=== PATIENT | female | born 1965 | race Caucasian/White ===

== ENCOUNTER 2021-03-29 18:19 | Emergency (ER) | payer MEDICAID, SELFPAY ==
--- NOTE | ~2021-03-29 | XR_ITS ---
EXAMINATION: XR foot RT 2V DATE: 03/29/2021 18:39 INDICATION: Generalized right foot pain and edema TECHNIQUE: Dorsoplantar and lateral views of the right foot were obtained. COMPARISON: None. FINDINGS: : Alignment is normal. No acute fracture. Suggestion of possible old healed fractures of the fourth a nd fifth proximal phalanges. 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 No cortical erosions. Nonspecific prominent soft tissue swelling about the ankle particularly laterally and over the dorsum of the foot. No soft tissue gas or radiopaque foreign bodies. IMPRESSION: 1. No acute osseous abnormality. Reviewed, dictated and finalized at location A.
[2021-03-29 18:29] VITALS: BP 153/87; PULSE 66; RESP 18; TEMP 36.7; O2SAT 96
--- NOTE | 2021-03-29 19:27 | ED.EXTPRO ---
HPI - Extremity Problem General Chief complaint: Extremity Problem,Nontraumatic Stated complaint: R Foot pain Time Seen by Provider: 03/29/21 19:27 History of Present Illness HPI Narrative: 55 yo female w/ no known past medical history presents to the ED for foot pain. She reports that she had pain and swelling in her right foot that she first noted when she awoke yesterday morning. The pain is greatest at the base of the fifth toe. The swelling radiates throughout the foot and ankle. She reports that she has had this once before, but she does not know what caused it then either. She also has a diffuse rash, which she thinks is due to bed bugs. No trauma, fever, h/o gout, DM. She has not tried anything for her symptoms. She is a poor historian. Related Data Allergies Allergy/AdvReac Type Severity Reaction Status Date / Time Penicillins Allergy Swelling Verified 03/29/21 19:21 Review of Systems Review of Systems: All systems reviewed & are unremarkable except as noted in HPI and below Constitutional: Constitutional: Denies chills, Denies fever(s) and Denies weakness Cardiovascular: Cardiovascular: Denies chest pain Respiratory: Respiratory: Denies dyspnea Gastrointestinal: Gastrointestinal: Denies nausea Genitourinary: Genitourinary: Reports no additional female genitourinary complaints Integumentary/Breasts: Skin/Breast: Reports rash Neurologic: Denies numbness and Denies weakness [facility] Social History Social History (Updated 03/29/21 @ 20:12 by Neptali Bailey MD) Substance use: never Gender identity (if verbalized by the patient): Female Comments history not known Exam Const: General: no acute distress and alert Nutritional Appearance: obese morbidly obese Orientation/consciousness: patient oriented x3 HENMT: Head: normal to inspection Neck: Neck: normal visual inspection Resp: Effort & Inspection: normal respiratory effort Auscultation: clear to auscultation bilaterally Cardio: Rate: regular rate Rhythm: regular rhythm Skin: Other: Diffuse papular rash w/ excoriations covering all exposed surfaces Neuro: General: patient oriented x3 and moves all extremities Speech: normal speech Extrem: Other: 2+ edema of right foot especially prominent on the lateral side. Tenderness most severe at right MTP. Course Vital Signs Vital signs: Vital Signs Temperature 36.7 C 03/29/21 18:29 Pulse Rate 66 03/29/21 18:29 Respiratory Rate 18 03/29/21 18:29 Blood Pressure 153/87 H 03/29/21 18:29 Pulse Oximetry 96 03/29/21 18:29 Temperature 36.7 C 03/29/21 18:29 Pulse Rate 66 03/29/21 18:29 Respiratory Rate 18 03/29/21 18:29 Blood Pressure 153/87 H 03/29/21 18:29 Pulse Oximetry 96 03/29/21 18:29 MDM - Extremity (Nontraumatic) MDM Narrative Medical decision making narrative: Symptoms are most likely gout. Swelling extending into ankle and lower leg is not typical nad cannot rule out DVT. I will start her on prednisone and have her follow-up for an ultrasound in the morning. Differential Diagnosis Differential diagnosis: Likely gout, cellulitis, lower extremity edema, deep vein thrombosis of lower extremity and other Medical Records Attestation: I reviewed the patient's medical records. Lab Data Attestation: I reviewed the patient's lab results. Result diagrams: 03/29/21 19:54 03/29/21 19:54 Labs: Lab Results 03/29/21 03/29/21 03/29/21 Range/Units 19:54 19:54 19:54 WBC 9.3 (4.5-10.0) K/mm3 RBC 4.69 (4.2-5.4) M/mm3 Hgb 14.2 (12.0-15.0) g/dL Hct 46.1 (37.0-47.0) % MCV 98.3 (80-100) fl MCH 30.3 (26-34) pg MCHC 30.8 L (32-36) g/dl RDW 16.0 H (11.5-14.5) % Plt Count 197 (150-375) k/mm3 MPV 9.9 (7.4-10.4) fl Immature Gran % (Auto) 0.4 (0-0.5) % Neut % (Auto) 73.9 H (45.5-73.1) % Lymph % (Auto) 16.8 L (18.3-44.2) % [place] % (Auto) 6.1 (2.6-8.5) % Eos % (Auto) 2.3
[2021-03-29 19:59] LABS: Basophils Absolute Auto 0.1 K/mm3 (0.0-0.1); Basophils Percent Auto 0.5 % (0.2-1.2); Eosinophils Absolute Auto 0.2 K/mm3 (0-0.3); Eosinophils Percent Auto 2.3 % (0-4.4); Hematocrit 46.1 % (37.0-47.0); Hemoglobin 14.2 g/dL (12.0-15.0); Immature Granulocyte Absolute 0.04 K/mm3 (0.00-0.031); Immature Granulocyte Percent A 0.4 % (0-0.5); Lymphocytes Absolute Auto 1.55 K/mm3 (0.9-3.2); Lymphocytes Percent Auto 16.8 % (18.3-44.2); Mean Corpuscular HGB Conc 30.8 g/dl (32-36); Mean Corpuscular Hemoglobin 30.3 pg (26-34); Mean Corpuscular Volume 98.3 fl (80-100); Mean Platelet Volume 9.9 fl (7.4-10.4); Monocytes Absolute Auto 0.6 K/mm3 (0.1-0.6); Monocytes Percent Auto 6.1 % (2.6-8.5); Neutrophils Absolute Auto 6.8 K/mm3 (1.3-6.7); Neutrophils Percent Auto 73.9 % (45.5-73.1); Platelet Count Result 197 k/mm3 (150-375); Red Blood Count 4.69 M/mm3 (4.2-5.4); White Blood Count 9.3 K/mm3 (4.5-10.0)
[2021-03-29 20:09] LABS: Anion Gap 8 mmol/L (8-16); Blood Urea Nitrogen 9 mg/dL (7-17); Calcium 9.2 mg/dL (8.4-10.2); Carbon Dioxide 27 mmol/L (22-30); Chloride 107 mmol/L (98-107); Estimated CRCL calculation 104 ml/min; Estimated Glomerular Filt Rate > 60; Glucose 89 mg/dL (65-105); Potassium 3.3 mmol/L (3.4-5.0); Sodium 142 mmol/L (137-145); Uric Acid 8.8 mg/dL (2.5-7.5)
[2021-03-29 20:13] LABS: D Dimer 0.56 ug/mL (<0.48)
[2021-03-29] MEDS: predniSONE 20 MG TABLET 40 MG PO (20:34)
[2021-03-29] MEDS: ENOXAPARIN 100 MG/ML SYRINGE SUB-Q (20:34)
== END 2021-03-29 21:05 | disposition home or self-care (01) ==
PROVIDERS: Emergency Provider Emergency Medicine
DX: M10.071 Idiopathic gout, right ankle and foot (principal)
CPT/HCPCS: 36415; 73620; 80048; 84550; 85025; 85380; 96372; 99283; J1650; J7512

== ENCOUNTER 2021-10-18 15:28 | Observation (INO) | payer OTHER, SELFPAY ==
--- NOTE | ~2021-10-18 | XR_ITS ---
XR ankle RT 2V, XR ankle LT 2V 10/20/2021 12:02 Indication: Bilateral ankle pain Procedure: 2 views of each ankle Comparison: No prior studies for comparison. Findings: Ankle mortise intact bilaterally. Talar dome is normal bilaterally. There is mild lateral soft tissue swelling on both sides. No foreign bodies. No fracture or traumatic malalignment. Impression: 1: No acute bone or joint abnormality. Reviewed, dictated and finalized at location A. UATE TEACHING ASSISTANT Impression: 1: No acute bone or joint abnormality. Impression: 1: No acute bone or joint abnormality.
--- NOTE | ~2021-10-18 | US_ITS ---
EXAMINATION: US venous doppler [facility] EXAM DATE: 10/18/2021 17:36 INDICATION: Pain and swelling. TECHNIQUE: Multiple grayscale, color flow and Doppler images of the left lower extremity deep venous system were obtained and reviewed. There is no prior study for comparison. FINDINGS: The left common femoral, femoral and profunda veins demonstrate normal color flow, respirat ory variation, augmentation and compressibility. Compressibility, color flow confirmed within the le ft popliteal, posterior tibial, peroneal, and greater saphenous veins. Left inguinal lymph node, reac tive. IMPRESSION: No left lower extremity deep venous thrombosis. Reviewed, dictated and finalized at location G. ARCHITECT
--- NOTE | ~2021-10-18 | CT_ITS ---
EXAMINATION: CT brain wo con EXAM DATE: 10/18/2021 17:39 INDICATION: Weakness, possible fall TECHNIQUE: Spiral CT of the head was performed without contrast. Axial, coronal and sagittal images were reviewed. The dose-length product (DLP) for this examination was 605.33 mGy-cm. The exposure w as tailored according to patient size, and iterative reconstruction (ASIR) was used as additional dos e reduction technique. There is no prior study for comparison. FINDINGS: There is moderate microangiopathy in mild cerebral atrophy. No brain mass, extra-axial gerry ection, acute intracranial hemorrhage, obstructive hydrocephalus or acute infarction. Calvarium, scal p are unremarkable. IMPRESSION: Chronic age-related intracranial findings. Reviewed, dictated and finalized at location G. CHAIN FEEDER
--- NOTE | ~2021-10-18 | XR_ITS ---
EXAMINATION: XR tibia fibula LT 2V EXAM DATE: 10/18/2021 16:26 INDICATION: Pain Red Rash And Sores All Over Leg. TECHNIQUE: Left tibia/fibula frontal and lateral projections obtained and reviewed. There is no prio r study for comparison. FINDINGS: Left tibial and fibular shafts unremarkable. There are no acute fractures or dislocations identified. There is no subcutaneous gas. There may be a moderate-sized knee joint effusion. There is fat density within the calf musculature, region has been indicated on the exam. Large intramuscula r lipoma. There are no radiopaque foreign bodies. IMPRESSION: 1. Probable moderate-sized left knee joint effusion. 2. Large fat density appears to be within calf musculature, possibly large lipoma. Reviewed, dictated and finalized at location G. MACHINE OPERATOR IMPRESSION: 1. Probable moderate-sized left knee joint effusion. 2. Large fat density appears to be within calf musculature, possibly large lip jamal.
--- NOTE | ~2021-10-18 | XR_ITS ---
EXAMINATION: XR chest 1V portable EXAM DATE: 10/18/2021 16:42 INDICATION: Weakness. TECHNIQUE: Portable AP frontal chest x-ray was obtained. There is no prior study for comparison. FINDINGS: The lungs are clear. There are no pleural effusions. Cardiac silhouette is prominent but magnified on this AP technique. There is no pneumothorax suspected. The bones and soft tissues are unremarkable. IMPRESSION: No acute cardiopulmonary findings. Reviewed, dictated and finalized at location G. REBUILDER
[2021-10-18 15:35] VITALS: BP 137/84; PULSE 97; RESP 19; TEMP 36.6; O2SAT 96
--- NOTE | 2021-10-18 15:58 | ED.LOWEXIN ---
HPI - Extremity Injury (Lower) General Chief Complaint: Extremity Injury, Lower Stated Complaint: FALL/BILATERAL LOWER LEG PAIN Time Seen by Provider: 10/18/21 15:36 Source: patient and EMS Mode of arrival: EMS Limitations: clinical condition History of Present Illness HPI Narrative: 56-year-old female Patient presents per EMS from a mobile home with complaints of left leg pain and being unable to get up after falling Paramedics reported that the dwelling was generally neat except for her room which was infested with bedbugs and she has multiple lesions all over her which are very much consistent with bites She says that this is because her son's mattress was in a barn before she moved here Otherwise she has few complaints, denies fever, denies headache, denies cough or shortness of breath or chest pain, denies urinary symptoms She has had diarrhea for a couple days but denies any vomiting or abdominal pain She is pretty unclear about how she wound up on the floor in the first place There is not appear to be any injury causing a deformity however There does not seem to be any real issue in far as taking p.o.'s as she is asking for a dinner tray upon arrival Related Data Home Medications Medication Instructions Recorded Confirmed No Home Medications 10/18/21 10/18/21 Allergies Allergy/AdvReac Type Severity Reaction Status Date / Time Penicillins Allergy Swelling Verified 03/29/21 19:21 Review of Systems Review of Systems: All systems reviewed & are unremarkable except as noted in HPI and below Constitutional: Constitutional: Reports no additional constitutional complaints, Denies chills, Reports fatigue, Denies fever(s), Denies headache(s) and Reports weakness Eyes: Eyes: Reports no additional eye complaints and Denies change in vision ENT: Denies headache(s) and Denies sore throat Cardiovascular: Cardiovascular: Denies chest pain and Denies dyspnea Respiratory: Respiratory: Denies cough and Denies dyspnea Gastrointestinal: Gastrointestinal: Denies abdominal pain, Reports diarrhea and Denies vomiting Genitourinary: Genitourinary: Denies urinary frequency and Denies dysuria Musculoskeletal: Musculoskeletal: Reports myalgias, Denies deformity, Reports arthralgias, Denies joint swelling and Denies numbness Integumentary/Breasts: Skin/Breast: Reports pruritus, Reports rash and Denies wounds Neurologic: Denies headache(s), Denies focal weakness and Denies numbness Psychiatric: Psychiatric: Reports no additional psychiatric complaints Endocrine: Endocrine: Reports no additional endocrine complaints Hematologic/Lymphatic: Hematologic/Lymphatic: Reports no additional hematologic/lymphatic complaints Allergic/Immunologic: Allergic/Immunologic: Reports no additional allergic/immunologic complaints [facility] Social History Social History Substance use: never Gender identity (if verbalized by the patient): Female Exam Const: General: cooperative, no acute distress and poor hygiene Nutritional Appearance: overweight Orientation/consciousness: patient oriented x3 (alert) HENMT: Head: normocephalic, atraumatic, no contusions and no hematomas Ears: external ears normal General nose exam: no epistaxis Eyes: Conjunctivae: conjunctivae normal EOM: EOMs intact bilaterally Neck: Neck: normal visual inspection, supple and no JVD Resp: Effort & Inspection: normal respiratory effort and not labored Auscultation: clear to auscultation bilaterally and other (BS =) Cardio: Rate: regular rate Rhythm: regular rhythm Heart sounds: no murmurs GI: GI Palp: Yes Soft to palpation, No Tenderness to palpation present (GI), No Guarding due to palpation present (GI) and No Rebound tenderness present Skin: General skin exam: no rashes or lesions noted Other: Arms, legs, too numerous to count lesions consistent with bug bites Neuro: General: moves all extremities
[2021-10-18 17:00] LABS: Basophils Absolute Auto 0.1 K/mm3 (0.0-0.1); Basophils Percent Auto 0.5 % (0.2-1.2); Eosinophils Absolute Auto 0.2 K/mm3 (0-0.3); Eosinophils Percent Auto 1.4 % (0-4.4); Hemoglobin 13.3 g/dL (12.0-15.0); Immature Granulocyte Absolute 0.06 K/mm3 (0.00-0.031); Immature Granulocyte Percent A 0.6 % (0-0.5); Lymphocytes Absolute Auto 1.02 K/mm3 (0.9-3.2); Lymphocytes Percent Auto 9.4 % (18.3-44.2); Mean Corpuscular HGB Conc 29.6 g/dl (32-36); Mean Corpuscular Hemoglobin 29.3 pg (26-34); Mean Corpuscular Volume 99.1 fl (80-100); Mean Platelet Volume 9.8 fl (7.4-10.4); Monocytes Absolute Auto 0.8 K/mm3 (0.1-0.6); Monocytes Percent Auto 7.4 % (2.6-8.5); Neutrophils Absolute Auto 8.7 K/mm3 (1.3-6.7); Neutrophils Percent Auto 80.7 % (45.5-73.1); Platelet Count Result 293 k/mm3 (150-375); Red Blood Count 4.54 M/mm3 (4.2-5.4); Red Cell Distribution Width 15.4 % (11.5-14.5); White Blood Count 10.8 K/mm3 (4.5-10.0)
[2021-10-18 17:10] LABS: Add Urine Microscopic? YES; Appearance Urine Cloudy (Clear); Bacteria Urine 4+ /hpf; Bilirubin Urine Negative (Negative); Blood Urine 1+ (Negative); Color Urine Amber (Yellow); Glucose Urine UA Negative (Negative); Ketones Urine Negative (Negative); Leukocyte Esterase Ur 2+ LEU/UL (Negative); Mucus Urine Heavy /lpf; Nitrate Urine Positive (Negative); Protein Urine 1+ mg/dL (Negative); Specific Grav Ur 1.023 (1.001-1.035); Squamous Epithelial Cell Urine Many /hpf (Few); WBC Urine 31-50 /hpf
[2021-10-18 17:13] LABS: Alanine Aminotransferase 69 U/L (4-35); Alkaline Phosphatase 268 U/L (38-126); Anion Gap 5 mmol/L (8-16); Aspartate Amino Transferase 115 U/L (14-36); Bilirubin,Total 0.8 mg/dL (0.2-1.3); Blood Urea Nitrogen 27 mg/dL (7-17); Calcium 9.2 mg/dL (8.4-10.2); Carbon Dioxide 32 mmol/L (22-30); Chloride 109 mmol/L (98-107); Estimated CRCL calculation 73 ml/min; Estimated Glomerular Filt Rate > 60; Glucose 102 mg/dL (65-110); Sodium 146 mmol/L (137-145)
[2021-10-18 17:17] LABS: Hypochromasia 1+ (NORMAL); Platelet Estimate Adequate (Adequate)
[2021-10-18 17:29] LABS: D Dimer 3.72 ug/mL (<0.48)
[2021-10-18 17:58] VITALS: BP 124/86; PULSE 89; RESP 18; O2SAT 96
[2021-10-18 18:02] LABS: SARS-CoV-2 RNA PCR Negative
[2021-10-18] MEDS: ceFAZolin 2 GM/D5W 50 ML 2 GM/50 ML BAG IVPB (18:37)
[2021-10-18 18:40] LABS: Creatine Kinase 949 U/L (30-135)
--- NOTE | 2021-10-18 19:17 | PC.NURSE ---
Assumed care of pt at this time, report taken from Lin ZHOU. Pt alert and upright on stretcher, lights dimmed. Pt updated on POC.
[2021-10-18 19:18] VITALS: BP 141/87; PULSE 97; RESP 20; O2SAT 94
--- NOTE | 2021-10-18 19:30 | PM.IMHP ---
H&P: HPI History of Present Illness Date/Time: 10/18/21 19:30 Chief Complaint: Fall. Narrative: This is a 56-year-old female with no reported significant medical history presented to the emergency department earlier today via EMS for evaluation after a fall. It is my understanding that she is currently renting a room in somebody's house and 2 days ago she ?fell out of bed? onto the floor and she was too weak to get herself up so she lay on the floor until today when she finally let her roommates called the ambulance. She cannot provide me with any other significant details with how she fell out of the bed though she denies injury, head trauma, and loss of consciousness. She is not certain why she could not get herself up. On EMS arrival the home was generally neat though the patient's room was found to be infested with bedbugs and she has multiple lesions consistent with bites. Her left leg was found to be red and with further questioning she does admit that the area has been warm and tender for several days. Additionally she endorses loose stools for the past couple of days and mild dysuria. She denies vertigo, focal weakness, paresthesias, fever, chills, sweats, cold and flu symptoms, chest pain, shortness of breath, nausea, and vomiting. Review of Systems Review of Systems: Twelve systems were reviewed and are negative except for as per HPI. [facility] Past Medical History Medical History (Updated 10/19/21 @ 00:10 by Alesha Betancur PA-C) Morbid obesity Surgical History Surgical History (Updated 10/19/21 @ 00:06 by Alesha Betancur PA-C) History of tubal ligation Family History Family History Father Heart disease Social History Social History (Updated 10/19/21 @ 00:07 by Alesha Betancur PA-C) Social History: Surrogate decision maker: Toby (boyfriend) or Janene (son's fiance). Code status: Full code. Smoking packs per day: 1.5 Smoking cigarettes per day: 30.0 Years smoked: 10 Smoking pack-years: 15.00 Smoking status: Former smoker Tobacco type: cigarettes Alcohol intake: former Substance use: former Substance use type: marijuana Additional living arrangements comments: Currently living in [place] with a roommate. Additional occupation/education comments: Unemployed. Meds Home Medications and Allergies Home Medications Medication Instructions Recorded Confirmed Type No Home Medications 10/18/21 10/18/21 History Allergies Allergy/AdvReac Type Severity Reaction Status Date / Time Penicillins Allergy Swelling Verified 03/29/21 19:21 Vital Signs Vital Signs - 24 hr 10/18/21 15:35 10/18/21 17:58 10/18/21 19:18 Temperature 97.8 F Pulse Rate 97 89 97 Respiratory Rate 19 18 20 Blood Pressure 137/84 124/86 141/87 H Pulse Oximetry 96 96 94 Exam Narrative: General: Disheveled-appearing female in the semi-Armenta position in bed. Weight: 107 kg. BMI: 41.8. HEENT: Normocephalic, atraumatic. PERRL, EOMI. Sclerae anicteric. Slight dysconjugate gaze. Tacky mucous membranes. Oropharynx is crowded. Neck: Supple. No JVD year, adenopathy, or thyromegaly. Respiratory: Lungs are clear to auscultation bilaterally. Cardiovascular: Regular rate and rhythm with S1-S2. Gastrointestinal: Abdomen is soft, obese, nontender, and nondistended with positive bowel sounds. Skin: Warm and dry. Widespread lesions consistent with history of bed bug bites. Left lower leg is warm and erythematous anteriorly without lymphangitic streaking. Extremities: No cyanosis, clubbing, or significant edema. Radial and pedal pulses intact. Musculoskeletal: Good range of motion in the left hip and knee. Mild tenderness to palpation over the anterior knee. Negative Mallika sign bilaterally. Neurological: Alert. Cranial nerves 2-12 are grossly intact. No gross focal deficits to casual conversation. Psychiatric: Appropriate mood. Flat
[2021-10-18 20:38] VITALS: BP 146/93; PULSE 93; RESP 17; O2SAT 96
[2021-10-18 21:47] VITALS: BP 147/92; PULSE 90; RESP 16; O2SAT 94
[2021-10-18] MEDS: LACTATED RINGERS 1,000 ML 200 ML IV CONT (23:05)
--- NOTE | 2021-10-18 23:13 | ADMGEN ---
This patient, Wilma Dunn, was admitted to Medical Room 250-01. Patient/family oriented to hospital policies and general routines including ID bracelet, bed and alarms, visiting hours, pain management, procedures, bathroom and other care routines, personal items, smoking policy, room service/diet, and visiting hours. Information on how to activate the Rapid Response Team has been discussed. Patient/Family are encouraged to report perceived risks to care and to ask questions if they do not understand what they are told or what they should do.
[2021-10-18 23:15] VITALS: BP 102/79; PULSE 100; RESP 20; TEMP 36.1; O2SAT 99
[2021-10-18 23:16] VITALS: BMI 41.8
[2021-10-19 02:52] VITALS: BP 141/71; PULSE 89; RESP 20; TEMP 36.6; O2SAT 95
[2021-10-19] MEDS: LACTATED RINGERS 1,000 ML 150 ML IV CONT ×3 (05:58→20:37)
[2021-10-19 06:15] LABS: Alanine Aminotransferase 55 U/L (4-35); Albumin Level 3.4 g/dL (3.5-5.1); Alkaline Phosphatase 217 U/L (38-126); Anion Gap 4 mmol/L (8-16); Aspartate Amino Transferase 86 U/L (14-36); Bilirubin,Total 0.8 mg/dL (0.2-1.3); Blood Urea Nitrogen 20 mg/dL (7-17); Calcium 8.6 mg/dL (8.4-10.2); Carbon Dioxide 29 mmol/L (22-30); Chloride 107 mmol/L (98-107); Creatine Kinase 750 U/L (30-135); Estimated CRCL calculation 79 ml/min; Estimated Glomerular Filt Rate > 60; Glucose 101 mg/dL (65-110); Magnesium 2.4 mg/dL (1.6-2.3); Potassium 3.3 mmol/L (3.4-5.0); Sodium 140 mmol/L (137-145); Uric Acid 11.5 mg/dL (2.5-7.5)
[2021-10-19 06:17] LABS: Hematocrit 38.6 % (37.0-47.0); Hemoglobin 11.5 g/dL (12.0-15.0); Mean Corpuscular HGB Conc 29.8 g/dl (32-36); Mean Corpuscular Hemoglobin 29.6 pg (26-34); Mean Corpuscular Volume 99.5 fl (80-100); Mean Platelet Volume 9.7 fl (7.4-10.4); Platelet Count Result 252 k/mm3 (150-375); Red Blood Count 3.88 M/mm3 (4.2-5.4); Red Cell Distribution Width 15.6 % (11.5-14.5); White Blood Count 8.3 K/mm3 (4.5-10.0)
[2021-10-19] MEDS: POTASSIUM CHLORIDE 20 MEQ PACKET (FOR LIQUID) 40 MEQ PO (13:46)
[2021-10-19] MEDS: LIDOCAINE HCL 4% SOLN 50 ML BTL 1 APPLIC TOPICAL (17:52)
[2021-10-19 22:00] VITALS: BP 121/62; PULSE 96; RESP 18; TEMP 37.1; O2SAT 94
[2021-10-19 22:10] VITALS: BP 118/59
[2021-10-20] MEDS: LACTATED RINGERS 1,000 ML 150 ML IV CONT ×3 (03:54→17:50)
[2021-10-20 05:42] LABS: Hematocrit 33.6 % (37.0-47.0); Hemoglobin 10.4 g/dL (12.0-15.0); Mean Corpuscular Hemoglobin 29.5 pg (26-34); Mean Corpuscular Volume 95.5 fl (80-100); Mean Platelet Volume 9.6 fl (7.4-10.4); Platelet Count Result 250 k/mm3 (150-375); Red Blood Count 3.52 M/mm3 (4.2-5.4); Red Cell Distribution Width 15.5 % (11.5-14.5); White Blood Count 8.1 K/mm3 (4.5-10.0)
[2021-10-20 05:59] LABS: Alanine Aminotransferase 40 U/L (4-35); Albumin Level 2.9 g/dL (3.5-5.1); Alkaline Phosphatase 164 U/L (38-126); Anion Gap 5 mmol/L (8-16); Aspartate Amino Transferase 61 U/L (14-36); Bilirubin,Total 0.5 mg/dL (0.2-1.3); Blood Urea Nitrogen 11 mg/dL (7-17); Calcium 8.2 mg/dL (8.4-10.2); Carbon Dioxide 27 mmol/L (22-30); Chloride 105 mmol/L (98-107); Creatine Kinase 420 U/L (30-135); Estimated CRCL calculation 79 ml/min; Estimated Glomerular Filt Rate > 60; Glucose 100 mg/dL (65-110); Potassium 3.3 mmol/L (3.4-5.0); Sodium 137 mmol/L (137-145)
[2021-10-20 06:00] VITALS: BP 117/63; PULSE 83; RESP 16; TEMP 37.1; O2SAT 92
[2021-10-20] MEDS: cefTRIAXone 2 GM in SODIUM CHLORIDE 0.9% IV 100 ML 200 ML IVPB (08:42)
[2021-10-20] MEDS: ACETAMINOPHEN 325 MG TABLET 650 MG PO ×2 (10:20→20:14)
[2021-10-20] MEDS: POTASSIUM CHLORIDE 20 MEQ TABLET 40 MEQ PO (10:20)
[2021-10-20] MEDS: LIDOCAINE HCL 4% SOLN 50 ML BTL 1 APPLIC TOPICAL (10:23)
--- NOTE | 2021-10-20 11:02 | PM.IMPN ---
Progress Note: A&P Assessment and Plan (1) Fall from bed: Code(s): W06.XXXA - Fall from bed, initial encounter Status: Acute Assessment and Plan: Patient fell out of bed 2 days ago and was unable to get herself up. Left leg imaging shows probable moderate size left knee joint effusion which perhaps she sustained in the fall though she has no significant complaints. Once she is feeling better she will need PT/OT. 10/19/2021 Interval history:Patient unable to provide detail how she fell and by she was not able to get up of the floor, most likely debility is patient is morbidly obese and not very active, her urine is suspicious UTI patient started on ceftriaxone, examined patient's lower extremity with nurse there is not obvious cellulitis however edematous and hyperemic, patient is on ceftriaxone will continue to monitor, also discussed with nursing apply lidocaine ointment to lower extremity to prevent itching and pain, will have PT OT evaluate the patient continue to monitor. (2) Left leg cellulitis: Code(s): L03.116 - Cellulitis of left lower limb Status: Acute Assessment and Plan: She has been started on ceftriaxone for UTI which should cover cellulitis as well. (3) Effusion of left knee: Code(s): M25.462 - Effusion, left knee Status: Acute Assessment and Plan: Perhaps sustained in the fall as detailed above. Supportive care for now. (4) Bed bug bite: Code(s): W57.XXXA - Bitten or stung by nonvenomous insect and other nonvenomous arthropods, initial encounter Status: Acute Assessment and Plan: Patient has widespread evidence of bedbug bites. (5) Dehydration: Code(s): E86.0 - Dehydration Status: Acute Assessment and Plan: She will be judiciously hydrated overnight. (6) Urinary tract infection: Code(s): N39.0 - Urinary tract infection, site not specified Status: Acute Assessment and Plan: Continue ceftriaxone, pending urine culture. (7) Rhabdomyolysis: Code(s): M62.82 - Rhabdomyolysis Status: Acute Assessment and Plan: Secondary to being on the ground for a day and a half to 2 days. Continue IV fluid rehydration. Trend CK. (8) Elevated LFTs: Code(s): R79.89 - Other specified abnormal findings of blood chemistry Status: Acute Assessment and Plan: Probably secondary to rhabdomyolysis. If no improvement with treatment of the above, further workup would be prudent. Subjective Date/time seen: 10/19/21 11:02 This is a 56-year-old female with no reported significant medical history presented to the emergency department earlier today via EMS for evaluation after a fall. It is my understanding that she is currently renting a room in somebody's house and 2 days ago she ?fell out of bed? onto the floor and she was too weak to get herself up so she lay on the floor until today when she finally let her roommates called the ambulance. She cannot provide me with any other significant details with how she fell out of the bed though she denies injury, head trauma, and loss of consciousness. She is not certain why she could not get herself up. On EMS arrival the home was generally neat though the patient's room was found to be infested with bedbugs and she has multiple lesions consistent with bites. Her left leg was found to be red and with further questioning she does admit that the area has been warm and tender for several days. Additionally she endorses loose stools for the past couple of days and mild dysuria. She denies vertigo, focal weakness, paresthesias, fever, chills, sweats, cold and flu symptoms, chest pain, shortness of breath, nausea, and vomiting. 10/19/2021 Interval history:Patient unable to provide detail how she fell and by she was not able to get up of the floor, most likely debility is patient is morbidly obese and not very active, her urine is suspicious
--- NOTE | 2021-10-20 11:10 | PM.IMPN ---
Progress Note: A&P Assessment and Plan (1) Fall from bed: Code(s): W06.XXXA - Fall from bed, initial encounter Status: Acute Assessment and Plan: Patient fell out of bed 2 days ago and was unable to get herself up. Left leg imaging shows probable moderate size left knee joint effusion which perhaps she sustained in the fall though she has no significant complaints. Once she is feeling better she will need PT/OT. 10/19/2021 Interval history:Patient unable to provide detail how she fell and by she was not able to get up of the floor, most likely debility is patient is morbidly obese and not very active, her urine is suspicious UTI patient started on ceftriaxone, examined patient's lower extremity with nurse there is not obvious cellulitis however edematous and hyperemic, patient is on ceftriaxone will continue to monitor, also discussed with nursing apply lidocaine ointment to lower extremity to prevent itching and pain, will have PT OT evaluate the patient continue to monitor. 10/20/2021 Interval history: currently patient is working with physical therapy and complaint of pain left ankle states injected when she fell is painful to flex and extend, will do the x-ray of the ankle, patient urine is suspicious for UTI will continue ceftriaxone will follow-up on urine culture, will continue PT OT and patient will benefit going to acute rehab. (2) Left leg cellulitis: Code(s): L03.116 - Cellulitis of left lower limb Status: Acute Assessment and Plan: She has been started on ceftriaxone for UTI which should cover cellulitis as well. (3) Effusion of left knee: Code(s): M25.462 - Effusion, left knee Status: Acute Assessment and Plan: Perhaps sustained in the fall as detailed above. Supportive care for now. (4) Bed bug bite: Code(s): W57.XXXA - Bitten or stung by nonvenomous insect and other nonvenomous arthropods, initial encounter Status: Acute Assessment and Plan: Patient has widespread evidence of bedbug bites. (5) Dehydration: Code(s): E86.0 - Dehydration Status: Acute Assessment and Plan: She will be judiciously hydrated overnight. (6) Urinary tract infection: Code(s): N39.0 - Urinary tract infection, site not specified Status: Acute Assessment and Plan: Continue ceftriaxone, pending urine culture. (7) Rhabdomyolysis: Code(s): M62.82 - Rhabdomyolysis Status: Acute Assessment and Plan: Secondary to being on the ground for a day and a half to 2 days. Continue IV fluid rehydration. Trend CK. (8) Elevated LFTs: Code(s): R79.89 - Other specified abnormal findings of blood chemistry Status: Acute Assessment and Plan: Probably secondary to rhabdomyolysis. If no improvement with treatment of the above, further workup would be prudent. Subjective Date/time seen: 10/20/21 11:10 10/19/2021 Interval history:Patient unable to provide detail how she fell and by she was not able to get up of the floor, most likely debility is patient is morbidly obese and not very active, her urine is suspicious UTI patient started on ceftriaxone, examined patient's lower extremity with nurse there is not obvious cellulitis however edematous and hyperemic, patient is on ceftriaxone will continue to monitor, also discussed with nursing apply lidocaine ointment to lower extremity to prevent itching and pain, will have PT OT evaluate the patient continue to monitor. 10/20/2021 Interval history: currently patient is working with physical therapy and complaint of pain left ankle states injected when she fell is painful to flex and extend, will do the x-ray of the ankle, patient urine is suspicious for UTI will continue ceftriaxone will follow-up on urine culture, will continue PT OT and patient will benefit going to acute rehab. Review of Systems Review of Systems: All systems
[2021-10-20 13:31] VITALS: BP 111/67; PULSE 77; RESP 28; TEMP 36.7; O2SAT 95
[2021-10-20 14:00] LABS: Hepatitis B Surface Antigen Negative (Negative)
[2021-10-20 14:05] LABS: HAV RESULT Negative (Negative); Hepatitis B Core IgM Result Negative (Negative)
[2021-10-20 14:17] LABS: Hepatitis C Virus Antibody Negative (Negative)
[2021-10-20 21:35] VITALS: BP 122/69; PULSE 79; RESP 16; TEMP 36.4; O2SAT 99
[2021-10-20 21:36] VITALS: BP 118/61; BP 122/69
[2021-10-21] MEDS: LACTATED RINGERS 1,000 ML 150 ML IV CONT ×3 (01:30→16:13)
[2021-10-21 05:49] LABS: Hemoglobin 10.1 g/dL (12.0-15.0); Mean Corpuscular HGB Conc 30.6 g/dl (32-36); Mean Corpuscular Hemoglobin 29.5 pg (26-34); Mean Corpuscular Volume 96.5 fl (80-100); Mean Platelet Volume 9.6 fl (7.4-10.4); Platelet Count Result 257 k/mm3 (150-375); Red Blood Count 3.42 M/mm3 (4.2-5.4); Red Cell Distribution Width 15.5 % (11.5-14.5); White Blood Count 7.5 K/mm3 (4.5-10.0)
[2021-10-21 06:03] LABS: Alanine Aminotransferase 42 U/L (4-35); Albumin Level 2.9 g/dL (3.5-5.1); Alkaline Phosphatase 191 U/L (38-126); Anion Gap 1 mmol/L (8-16); Aspartate Amino Transferase 60 U/L (14-36); Bilirubin,Total 0.3 mg/dL (0.2-1.3); Blood Urea Nitrogen 10 mg/dL (7-17); Calcium 8.6 mg/dL (8.4-10.2); Carbon Dioxide 28 mmol/L (22-30); Chloride 105 mmol/L (98-107); Creatine Kinase 173 U/L (30-135); Estimated CRCL calculation 92 ml/min; Estimated Glomerular Filt Rate > 60; Glucose 103 mg/dL (65-110); Potassium 4.1 mmol/L (3.4-5.0); Sodium 134 mmol/L (137-145)
[2021-10-21] MEDS: cefTRIAXone 2 GM in SODIUM CHLORIDE 0.9% IV 100 ML 200 ML IVPB (08:36)
[2021-10-21] MEDS: ACETAMINOPHEN 325 MG TABLET 650 MG PO (08:43)
--- NOTE | 2021-10-21 09:57 | PM.IMPN ---
Progress Note: A&P Assessment and Plan (1) Fall from bed: Code(s): W06.XXXA - Fall from bed, initial encounter Status: Acute Assessment and Plan: Patient fell out of bed 2 days ago and was unable to get herself up. Left leg imaging shows probable moderate size left knee joint effusion which perhaps she sustained in the fall though she has no significant complaints. Once she is feeling better she will need PT/OT. 10/19/2021 Interval history:Patient unable to provide detail how she fell and by she was not able to get up of the floor, most likely debility is patient is morbidly obese and not very active, her urine is suspicious UTI patient started on ceftriaxone, examined patient's lower extremity with nurse there is not obvious cellulitis however edematous and hyperemic, patient is on ceftriaxone will continue to monitor, also discussed with nursing apply lidocaine ointment to lower extremity to prevent itching and pain, will have PT OT evaluate the patient continue to monitor. 10/20/2021 Interval history: currently patient is working with physical therapy and complaint of pain left ankle states injected when she fell is painful to flex and extend, will do the x-ray of the ankle, patient urine is suspicious for UTI will continue ceftriaxone will follow-up on urine culture, will continue PT OT and patient will benefit going to acute rehab. 10/21/2021 Interval history: currently patient is working with physical therapy and complaint of pain b/l ankles states injured them when she fell, is painful to flex and extend, the x-ray of b/l ankleDid not show any acute injury will continue PT OT,, patient urine is suspicious for UTI growing E coli sensitive to ceftriaxone will continue, will continue PT OT and patient will benefit going to acute rehab. (2) Left leg cellulitis: Code(s): L03.116 - Cellulitis of left lower limb Status: Acute Assessment and Plan: She has been started on ceftriaxone for UTI which should cover cellulitis as well. (3) Effusion of left knee: Code(s): M25.462 - Effusion, left knee Status: Acute Assessment and Plan: Perhaps sustained in the fall as detailed above. Supportive care for now. (4) Bed bug bite: Code(s): W57.XXXA - Bitten or stung by nonvenomous insect and other nonvenomous arthropods, initial encounter Status: Acute Assessment and Plan: Patient has widespread evidence of bedbug bites. (5) Dehydration: Code(s): E86.0 - Dehydration Status: Acute Assessment and Plan: She will be judiciously hydrated overnight. (6) Urinary tract infection: Code(s): N39.0 - Urinary tract infection, site not specified Status: Acute Assessment and Plan: Continue ceftriaxone, pending urine culture. (7) Rhabdomyolysis: Code(s): M62.82 - Rhabdomyolysis Status: Acute Assessment and Plan: Secondary to being on the ground for a day and a half to 2 days. Continue IV fluid rehydration. Trend CK. (8) Elevated LFTs: Code(s): R79.89 - Other specified abnormal findings of blood chemistry Status: Acute Assessment and Plan: Probably secondary to rhabdomyolysis. If no improvement with treatment of the above, further workup would be prudent. Subjective Date/time seen: 10/21/21 09:57 Patient fell out of bed 2 days ago and was unable to get herself up. Left leg imaging shows probable moderate size left knee joint effusion which perhaps she sustained in the fall though she has no significant complaints. Once she is feeling better she will need PT/OT. 10/19/2021 Interval history:Patient unable to provide detail how she fell and by she was not able to get up of the floor, most likely debility is patient is morbidly obese and not very active, her urine is suspicious UTI patient started on ceftriaxone, examined patient's lower extremity with nurse there is not obvious julien
[2021-10-21 14:00] VITALS: BP 121/62; PULSE 75; RESP 18; TEMP 36.4; O2SAT 96
[2021-10-21 22:22] VITALS: BP 148/78; PULSE 73; RESP 18; TEMP 36.6; O2SAT 97
[2021-10-21 22:23] VITALS: BP 132/69
[2021-10-22] MEDS: LACTATED RINGERS 1,000 ML 150 ML IV CONT ×3 (01:59→13:56)
--- NOTE | 2021-10-22 02:29 | PC.NURSE ---
PT HAS BEEN RESTLESS SETTING OFF THE BED ALARM. ENTERED ROOM TO TURN OFF ALARM TO PT HAVING PULLED OFF HER HOSPITAL GOWN AND LEGS HANGING OFF THE SIDE OF THE BED ATTEMPTING TO GET UP. PT HAD ALSO PULLED OUT IV AND WAS ATTEMPTING TO PULL OUT ARBOLEDA. THIS WAS PTS 2ND IV SINCE DAY SHIFT. IV WAS WRAPPED TO PREVENT PT FROM PULLING IT OUT. WRAP WAS REMOVED AND STAT LOCK FROM ARBOLEDA WAS RIPPED APART LAYING ON THE BEDSIDE TABLE. PT STATED THE IV WAS ALREADY OUT AND THE ARBOLEDA WAS BROKEN AND THAT IS WHY SHE NEEDS TO REMOVE IT. PT STILL ABLE TO ANSWER ORIENTATION QUESTIONS BUT OTHER CONVERSATION MAKES LITTLE SENSE. I EDUCATED THE PT ON WHY SHE NEEDED THE IV AND THE ARBOLEDA TO WHICH SHE BEGAN TO YELL BUT SPEECH WAS GARBLED. INSPECTOR PLUMBING PLACED NEW STAT LOCK ON ARBOLEDA.
[2021-10-22 05:38] LABS: Hematocrit 34.1 % (37.0-47.0); Hemoglobin 10.5 g/dL (12.0-15.0); Mean Corpuscular HGB Conc 30.8 g/dl (32-36); Mean Corpuscular Hemoglobin 29.3 pg (26-34); Mean Corpuscular Volume 95.3 fl (80-100); Mean Platelet Volume 9.2 fl (7.4-10.4); Platelet Count Result 268 k/mm3 (150-375); Red Blood Count 3.58 M/mm3 (4.2-5.4); Red Cell Distribution Width 15.3 % (11.5-14.5); White Blood Count 7.9 K/mm3 (4.5-10.0)
[2021-10-22 05:53] LABS: Alanine Aminotransferase 49 U/L (4-35); Albumin Level 3.3 g/dL (3.5-5.1); Alkaline Phosphatase 217 U/L (38-126); Anion Gap 6 mmol/L (8-16); Aspartate Amino Transferase 63 U/L (14-36); Bilirubin,Total 0.5 mg/dL (0.2-1.3); Blood Urea Nitrogen 8 mg/dL (7-17); Calcium 8.9 mg/dL (8.4-10.2); Carbon Dioxide 25 mmol/L (22-30); Chloride 104 mmol/L (98-107); Creatine Kinase 240 U/L (30-135); Estimated CRCL calculation 108 ml/min; Estimated Glomerular Filt Rate > 60; Glucose 106 mg/dL (65-110); Potassium 3.9 mmol/L (3.4-5.0); Sodium 135 mmol/L (137-145)
[2021-10-22 06:00] VITALS: BP 141/79; PULSE 78; RESP 20; TEMP 36.6; O2SAT 93
[2021-10-22] MEDS: cefTRIAXone 2 GM in SODIUM CHLORIDE 0.9% IV 100 ML 200 ML IVPB (07:45)
[2021-10-22 09:00] VITALS: BP 129/68; PULSE 84
[2021-10-22 09:10] VITALS: BP 123/65; PULSE 101
--- NOTE | 2021-10-22 14:16 | PM.DS ---
DS: Admitting Diagnosis Discharge Date 10/22/2021 Admitting Diagnosis Fall DS: Discharge Diagnosis Discharge Diagnosis (1) Fall from bed: Code(s): W06.XXXA - Fall from bed, initial encounter Status: Acute Assessment and Plan: Patient fell out of bed 2 days ago and was unable to get herself up. Left leg imaging shows probable moderate size left knee joint effusion which perhaps she sustained in the fall though she has no significant complaints. Once she is feeling better she will need PT/OT. 10/19/2021 Interval history:Patient unable to provide detail how she fell and by she was not able to get up of the floor, most likely debility is patient is morbidly obese and not very active, her urine is suspicious UTI patient started on ceftriaxone, examined patient's lower extremity with nurse there is not obvious cellulitis however edematous and hyperemic, patient is on ceftriaxone will continue to monitor, also discussed with nursing apply lidocaine ointment to lower extremity to prevent itching and pain, will have PT OT evaluate the patient continue to monitor. 10/20/2021 Interval history: currently patient is working with physical therapy and complaint of pain left ankle states injected when she fell is painful to flex and extend, will do the x-ray of the ankle, patient urine is suspicious for UTI will continue ceftriaxone will follow-up on urine culture, will continue PT OT and patient will benefit going to acute rehab. 10/21/2021 Interval history: currently patient is working with physical therapy and complaint of pain b/l ankles states injured them when she fell, is painful to flex and extend, the x-ray of b/l ankleDid not show any acute injury will continue PT OT,, patient urine is suspicious for UTI growing E coli sensitive to ceftriaxone will continue, will continue PT OT and patient will benefit going to acute rehab. (2) Left leg cellulitis: Code(s): L03.116 - Cellulitis of left lower limb Status: Acute Assessment and Plan: She has been started on ceftriaxone for UTI which should cover cellulitis as well. (3) Effusion of left knee: Code(s): M25.462 - Effusion, left knee Status: Acute Assessment and Plan: Perhaps sustained in the fall as detailed above. Supportive care for now. (4) Bed bug bite: Code(s): W57.XXXA - Bitten or stung by nonvenomous insect and other nonvenomous arthropods, initial encounter Status: Acute Assessment and Plan: Patient has widespread evidence of bedbug bites. (5) Dehydration: Code(s): E86.0 - Dehydration Status: Acute Assessment and Plan: She will be judiciously hydrated overnight. (6) Urinary tract infection: Code(s): N39.0 - Urinary tract infection, site not specified Status: Acute Assessment and Plan: Continue ceftriaxone, pending urine culture. (7) Rhabdomyolysis: Code(s): M62.82 - Rhabdomyolysis Status: Acute Assessment and Plan: Secondary to being on the ground for a day and a half to 2 days. Continue IV fluid rehydration. Trend CK. (8) Elevated LFTs: Code(s): R79.89 - Other specified abnormal findings of blood chemistry Status: Acute Assessment and Plan: Probably secondary to rhabdomyolysis. If no improvement with treatment of the above, further workup would be prudent. DS: Summary Hospital Course Reason for hospitalization: Chief Complaint: Fall. Narrative: This is a 56-year-old female with no reported significant medical history presented to the emergency department earlier today via EMS for evaluation after a fall. It is my understanding that she is currently renting a room in somebody's house and 2 days ago she ?fell out of bed? onto the floor and she was too weak to get herself up so she lay on the floor until today when she finally let her roommates called the ambulance. She cannot provide me with any other
[2021-10-22 14:59] LABS: EDCOVIDSCREEN Negative (Negative)
== END 2021-10-22 19:27 ==
LOC: ANHED 18:22 → ANH2MED 10-19 10:03
PROVIDERS: Physician Assistant; Admitting Provider Family Medicine; Emergency Provider Emergency Medicine; PCP Internal Medicine; Visit Provider Family Medicine
DX: L03.116 Cellulitis of left lower limb (principal); M25.462 Effusion, left knee; N39.0 Urinary tract infection, site not specified; B96.20 Unspecified Escherichia coli [E. coli] as the cause of diseases classified elsewhere; M62.82 Rhabdomyolysis; E86.0 Dehydration; W06.XXXA Fall from bed, initial encounter; E66.01 Morbid (severe) obesity due to excess calories; M25.572 Pain in left ankle and joints of left foot; M25.571 Pain in right ankle and joints of right foot; R79.89 Other specified abnormal findings of blood chemistry; Z68.41 Body mass index [BMI] 40.0-44.9, adult; W57.XXXA Bitten or stung by nonvenomous insect and other nonvenomous arthropods, initial encounter; Z87.891 Personal history of nicotine dependence; Z20.822 Contact with and (suspected) exposure to COVID-19
CPT/HCPCS: 36415; 51701; 70450; 71045; 73590; 73600; 80053; 80074; 81001; 82550; 83735; 84550; 85025; 85027; 85380; 86140; 87077; 87086; 87088; 87186; 87426; 93971; 96360; 96361; 96365; 96366; 97110; 97161; 97166; 97530; 97535; 99285; A9270; C9803; G0378; G0379; J0690; J0696; J7120; U0003; U0005

== ENCOUNTER 2022-10-11 21:08 | Inpatient (IN) | payer OTHER, SELFPAY ==
[2022-10-11] VITALS (15 sets, daily range): BP systolic 116–162; BP diastolic 78–118; PULSE 100–196; RESP 21–30; TEMP 36.7–37.1; O2SAT 91–99
--- NOTE | ~2022-10-11 | MR_ITS ---
EXAMINATION: MR MRCP wo/w con/w 3D wo ind DATE: 10/14/2022 15:10 INDICATION: Sepsis, elevated liver enzymes TECHNIQUE: Magnetic resonance imaging (MRI) of the abdomen was performed without and with intravenous contrast. Sequences included coronal T2-weighted SS-FSE ARC, coronal T2-weighted FS SS-FSE, coronal T2-weighted 2D FS FIESTA, Water:Coronal LAVA-Flex, sagittal T2-weighted SS-FSE ARC, axial SSFSE ARC, axial 3D DualEcho, axial DWI B=600, axial T1-weighted LAVA, FAT:Coronal LAVA-Flex, and coronal in and opposed phase LAVA-Flex. Thick-slab T2-weighted FRFSE-XL images were obtained for magnetic resonance cholangiopancreatography (MRCP). Maximum intensity projection 3-D reconstructions of the volumetric data were created by the technologist. Postcontrast sequences included a time course of axial T1-weig hted LAVA, FAT:Coronal LAVA-Flex, coronal in and opposed phase LAVA-Flex, and Water:Coronal LAVA-Flex . COMPARISON: CT, 10/11/2022 CONTRAST: Multihance, 20 cc FINDINGS: ABDOMEN MRI: The liver, spleen, pancreas, and adrenal glands are normal. There are stones in the nond istended gallbladder. There appear to be a cluster of stones in the gallbladder fundus corresponding to a rim calcified area on the comparison CT. The kidneys are unremarkable. There are no pathological ly enlarged abdominal lymph nodes. No dilated loops of bowel are evident. Although limited by motion artifact, no abnormal enhancement is identified after contrast administration. ABDOMEN MRCP: Mildly dilated common bile duct measures up to 8 mm. There appears to be a 2 mm stone i n the distal common bile duct. The pancreatic duct is normal in course and caliber. IMPRESSION: 1. Mildly dilated common bile duct with probable 2 mm stone of the distal common bile duct. 2. Cholelithiasis. Reviewed, dictated and finalized at location B. AND MOTTLE SUPERVISOR IMPRESSION: 1. Mildly dilated common bile duct with probable 2 mm stone of the distal commo n bile duct. 2. Cholelithiasis.
--- NOTE | ~2022-10-11 | US_ITS ---
US abdomen limited INDICATION: Elevated liver function tests. Sepsis. PROCEDURE: Realtime right upper abdominal ultrasound. COMPARISON: No prior studies for comparison. FINDINGS: The pancreas is normal without focal mass or pancreatic ductal dilation. Liver echotexture is increased, consistent with fatty infiltration. Nodular liver surface, consistent with cirrhosis. There is normal directional flow in the portal vein. There are gallstones. Common bile duct measures 7.8 mm. No sonographic Delvalle's sign. IMPRESSION: 1: Cirrhosis of the liver. 2: Cholelithiasis with dilated common bile duct measuring 7.8 mm. Consider cholecystitis in the appro priate clinical setting. Reviewed, dictated and finalized at location A. LAY FABRICATION SUPERVISOR IMPRESSION: 1: Cirrhosis of the liver. 2: Cholelithiasis with dilated common bile duct measuring 7.8 mm. Consider chol ecystitis in the appropriate clinical setting.
--- NOTE | ~2022-10-11 | CT_ITS ---
EXAMINATION: CTA chest PE abdomen pel DATE: 10/11/2022 22:50 INDICATION: Shortness of breath, vomiting TECHNIQUE: Computed tomography angiography (CTA) of the chest was performed with 100 mL Omnipaque-350 intravenous contrast timed to evaluate the pulmonary arteries. Subsequent postcontrast images of the abdomen and pelvis are obtained. Coronal maximum intensity projection 3D-reconstructions were create d by the technologist. The dose-length product (DLP) was 2360.22 mGy-cm. Automated exposure control a nd iterative reconstruction technique were employed. COMPARISON: None. FINDINGS: CTA CHEST: Respiratory motion artifact limits evaluation for pulmonary embolus. The pulmonary arterie s are moderately well-opacified. No definite pulmonary embolus is identified. Cardiomegaly is noted. Examination is captured mostly in the expiratory phase. There are airspace opacities of the left lowe r lobe. No pleural effusion or pneumothorax. No pathologically enlarged thoracic lymph nodes are iden tified. There is moderate thoracic spondylosis. ABDOMEN/PELVIS CT: The liver, spleen, pancreas, and adrenal glands are normal. There is wall calcific ation of the gallbladder. There is mild enlargement of the common bile duct of unclear etiology The k idneys are unremarkable. No pathologically enlarged abdominal or pelvic lymph nodes are identified. T here is no free intraperitoneal gas or evidence of bowel obstruction. The appendix is normal. Multipl e uterine fibroids are noted. There is mild lumbar spondylosis. IMPRESSION: 1. No pulmonary embolus identified, sensitivity limited by respiratory motion artifact and moderate p ulmonary artery opacification. 2. Left lower lobe airspace opacities, consistent with atelectasis and/or pneumonia. 3. Cardiomegaly. 4. Mild enlargement of the common bile duct of unclear etiology. Reviewed, dictated and finalized at location F. LE STRAP DRUM OPERATOR IMPRESSION: 1. No pulmonary embolus identified, sensitivity limited by respiratory motion a rtifact and moderate pulmonary artery opacification. 2. Left lower lobe airspace opacities, consistent with atelectasis and/or pneum onia. 3. Cardiomegaly. 4. Mild enlargement of the common bile duct of unclear etiology.
--- NOTE | ~2022-10-11 | CT_ITS ---
EXAMINATION: CT brain wo con INDICATION: Transient alteration of awareness COMPARISON: 10/18/2021 TECHNIQUE: Standard unenhanced head CT. The dose-length product (DLP) was 605.33 mGy-cm. The mA was a djusted according to patient size. Iterative reconstruction technique was employed. FINDINGS: There is no intracranial hemorrhage, acute infarction, or abnormal mass lesion. The ventric les are normal. There is no abnormal mass effect or midline shift. The villarreal-white matter differentiat ion is normal. The basal cisterns are patent. The orbits are normal. The paranasal sinuses, mastoids and calvarium are normal. IMPRESSION: 1. No acute intracranial abnormality. Reviewed, dictated and finalized at location F. ITUTIONAL CUSTODIAN
--- NOTE | ~2022-10-11 | XR_ITS ---
EXAMINATION: XR ERCP DATE: 10/16/2022 11:53 INDICATION: Choledocholithiasis. TECHNIQUE: 3 spot fluoroscopic images of the right upper quadrant were obtained during endoscopic ret rograde cholangiopancreatography (ERCP). Fluoroscopy exposure time was 125 seconds. COMPARISON: MRCP 10/14/2022, CT abdomen and pelvis 10/11/2022 FINDINGS: The endoscope is in the second portion the duodenum. There is contrast opacification of the common duct, which is dilated. There is wall calcification of the gallbladder (porcelain gallbladder ). IMPRESSION: 1. Dilated common duct. 2. Porcelain gallbladder. 3. Please refer to the ERCP procedure note for additional details. Reviewed, dictated and finalized at location A. LER
--- NOTE | 2022-10-11 21:17 | ED.ARRPALP ---
HPI - Arrhythmia/Palpitations General Chief Complaint: Arrhythmia/Palpitations Stated Complaint: altered loc History of Present Illness HPI narrative: Patient is a 57-year-old female who presents ER with altered mental status. According to [facility] patient has baseline confusion but can usually answer orientation questions x3. Last known normal was last night. Patient responsive to verbal stimuli and noxious stimuli at this time. She has mottling of her skin which mcc reports is new and acute. Unfortunately no additional information provided. In route EMS found patient be in A. fib RVR in the 150s to 160s. She then suddenly jumped up to the 200s and stayed there for the duration of the drive. They did administer adenosine 6 mg without improvement. Related Data Home Medications Medication Instructions Recorded Confirmed Lactobacillus acidophilus 0.5 mg 1 mg PO DAILY 10/12/22 10/12/22 (100 million cell) tablet aluminum-mag hydroxide-simethicone 20 ml PO TID PRN Constipation 10/12/22 10/12/22 200 mg-200 mg-20 mg/5 mL oral susp cholecalciferol (vitamin D3) 50 50 mcg PO DAILY 10/12/22 10/12/22 mcg (2,000 unit) tablet (Vitamin D3) diclofenac sodium 1 % topical gel 1 g topical Q12H 10/12/22 10/12/22 (Voltaren Arthritis Pain) famotidine 20 mg tablet 20 mg PO DAILY 10/12/22 10/12/22 gemfibrozil 600 mg tablet 600 mg PO Q12H 10/12/22 10/12/22 lidocaine 4 % topical patch 1 patch topical QAM 10/12/22 10/12/22 (Aspercreme (lidocaine)) multivitamin f-bzcxzpjd-hjpiiik 1 tablet PO DAILY 10/12/22 10/12/22 fumarate 18 mg-vitamin K 25 mcg tablet vitamin B complex (B 2 tablet PO DAILY 10/12/22 10/12/22 Complex-Vitamin B12 tablet) Allergies Allergy/AdvReac Type Severity Reaction Status Date / Time Penicillins Allergy Unknown Anaphylaxis Verified 10/12/22 02:34 Review of Systems Review of Systems: ROS unobtainable: Yes unobtainable due to medical condition PMFSH Past Medical History Medical History (Updated 10/12/22 @ 06:48 by Suleiman Shaw MD) Morbid obesity Surgical History Surgical History (Updated 10/19/21 @ 00:06 by Alesha Betancur PA-C) History of tubal ligation Family History Family History Father Heart disease Social History Social History (Updated 10/19/21 @ 00:07 by Alesha Betancur PA-C) Social History: Surrogate decision maker: Toby (boyfriend) or Janene (son's fiance). Code status: Full code. Smoking packs per day: 1.5 Smoking cigarettes per day: 30.0 Years smoked: 10 Smoking pack-years: 15.00 Smoking status: Never smoker Tobacco type: cigarettes Alcohol intake: unknown Substance use: unknown Substance use type: marijuana Additional living arrangements comments: Currently living in [place] with a roommate. Additional occupation/education comments: Unemployed. Spiritual care concerns: No Exam Narrative: GENERAL: Ill-appearing, morbidly obese, and in moderate distress. HEAD: Normocephalic, atraumatic. EYES: PERRL and EOMI. ENT: Dry mucous membranes with pale lips. CHEST: Clear to auscultation. No respiratory distress. HEART: Tachycardic and regular. Normal peripheral pulses but mottling of the extremities indicating poor perfusion. ABDOMEN: Soft, nontender, nondistended. EXTREMITIES: Normal range of motion. 2+ edema. SKIN: Cool, dry, mottled appearance especially bilateral upper extremities below the elbows and around the knees of the lower extremities. NEURO: Awake and alert, not oriented. Intermittently follows commands. Course Course Emergency Course: Admit to hospitalist service. There is some concern for potentially cholecystitis given elevated transaminases and dilated common bile duct. Patient will be treated with IV antibiotics. Blood was cultured. Patient received 30 mL/kg bolus for sepsis. Vital Signs Vital signs: Vital Signs Temperatur
--- NOTE | 2022-10-11 21:30 | ECG_ITS ---
Measurements Intervals [place] Rate: 205 P: DC: 0 QRS: -46 QRSD: 127 T: 123 QT: 259 QTc: 479 Interpretive Statements WIDE COMPLEX TACHYCARDIA, CONSIDER VENTRICULAR TACHYCARDIA LEFT BUNDLE BRANCH BLOCK BASELINE ARTIFACT- AVR ABNORMAL ECG NO PREVIOUS ECG AVAILABLE FOR COMPARISON Electronically Signed On 10-12-2022 8:07:49 PROMOS EXECUTIVE PRODUCER by Chirag Hickman D.O.
--- NOTE | 2022-10-11 21:45 | ECG_ITS ---
Measurements Intervals [place] Rate: 0 P: MO: 0 QRS: QRSD: 0 T: QT: 0 QTc: 0 Interpretive Statements PROBABLY ATRIAL FIBRILLATION WITH RAPID VENTRICULAR RESPONSE (BASELINE ARTIFACT) LEFT AXIS DEVIATION CANNOT RULE OUT SEPTAL INFARCT, AGE INDETERMINATE BORDERLINE ST-T WAVE ABNORMALITY- HIGH LATERAL LEADS BASELINE ARTIFACT- I, II, III, AVR, AVL, AVF, V1-V6 ABNORMAL ECG WIDE COMPLEX TACHYCARDIA RESOLVED Electronically Signed On 10-12-2022 8:12:03 LICENSED OCCUPATIONAL THERAPIST by Chirag Hickman D.O.
[2022-10-11 21:47] LABS: Appearance Urine Clear (Clear); Bilirubin Urine Negative (Negative); Blood Urine Trace-lysed (Negative); Color Urine Yellow (Yellow); Glucose Urine UA Negative (Negative); Ketones Urine Negative (Negative); Leukocyte Esterase Ur Negative LEU/UL (Negative); Nitrate Urine Positive (Negative); Protein Urine 3+ mg/dL (Negative); Specific Grav Ur 1.025 (1.001-1.035); pH Urine 7.5 (5.0-9.0)
[2022-10-11 21:50] LABS: Basophils Percent Auto 0.2 % (0.2-1.2); Hematocrit 49.4 % (37.0-47.0); Hemoglobin 15.4 g/dL (12.0-15.0); Immature Granulocyte Absolute 0.08 K/mm3 (0.00-0.031); Immature Granulocyte Percent A 0.5 % (0-0.5); Lymphocytes Absolute Auto 0.71 K/mm3 (0.9-3.2); Lymphocytes Percent Auto 4.7 % (18.3-44.2); Mean Corpuscular HGB Conc 31.2 g/dl (32-36); Mean Corpuscular Hemoglobin 29.2 pg (26-34); Mean Corpuscular Volume 93.7 fl (80-100); Mean Platelet Volume 10.5 fl (7.4-10.4); Monocytes Absolute Auto 0.5 K/mm3 (0.1-0.6); Monocytes Percent Auto 3.1 % (2.6-8.5); Neutrophils Absolute Auto 13.7 K/mm3 (1.3-6.7); Neutrophils Percent Auto 91.5 % (45.5-73.1); Platelet Count Result 263 k/mm3 (150-375); Red Blood Count 5.27 M/mm3 (4.2-5.4); Red Cell Distribution Width 14.2 % (11.5-14.5)
[2022-10-11 21:54] LABS: Mucus Urine Rare /lpf; Squamous Epithelial Cell Urine Rare /hpf (Few); WBC Urine 0-3 /hpf
[2022-10-11 22:07] LABS: Troponin I < 0.012 ng/mL (0.000-0.034)
[2022-10-11 22:09] LABS: Alanine Aminotransferase 161 U/L (6-35); Albumin Level 4.6 g/dL (3.5-5.1); Alkaline Phosphatase 287 U/L (38-126); Anion Gap 13 mmol/L (8-16); Aspartate Amino Transferase 396 U/L (14-36); Bilirubin,Total 2.4 mg/dL (0.2-1.3); Blood Urea Nitrogen 10 mg/dL (7-17); Calcium 9.8 mg/dL (8.4-10.2); Carbon Dioxide 29 mmol/L (22-30); Chloride 102 mmol/L (98-107); Estimated Glomerular Filt Rate > 60; Glucose 113 mg/dL (65-110); Potassium 3.6 mmol/L (3.4-5.0); Sodium 144 mmol/L (137-145)
[2022-10-11 22:14] LABS: Add Urine Microscopic? YES
[2022-10-11 22:17] LABS: NT Pro B Type Natriuretic Pept 623 pg/mL (19.9-100)
[2022-10-11 22:26] LABS: Alveolar/Arterial O2 Gradient 99.9 mmHg; Base Excess ABG 2.2 mEq/l (+/-2.0); Carboxyhemoglobin 1.9 % THb (0-2.0); Fractional Inspired Oxygen 30 %; HCO3 ABG 27.2 mEq/l (22.0-26.0); Methemoglobin ABG 0.2 %THb (0-1.5); Oxygen Content ABG 19.8 %vol (16.0-22.0); Oxygen Saturation ABG 92.3 % (95.0-100.0); Oxyhemoglobin 90.5 % THb (90.0-100.0); PCO2 ABG 43.5 mmHg (35.0-45.0); PO2 ABG 62.9 mmHg (80.0-100.0); Reduced Hemoglobin 7.4 %THb (0-5.0); Total Hemoglobin 15.6 g/dL (12.0-18.0); pH ABG 7.414 (7.350-7.450)
[2022-10-11 22:27] LABS: Device NASAL CANNULA; Modified Allen's Test Pass; Site Drawn RIGHT RADIAL
[2022-10-11] MEDS: metroNIDAZOLE 500 MG/ISO 100ML 500 MG/100 ML BAG 100 MG IVPB (23:11)
[2022-10-11 23:27] LABS: Lactic Acid Reflex 4.3 mmol/L (0.7-2.0)
--- NOTE | 2022-10-11 23:29 | PC.NURSE ---
RN contacted intermediate, intermediate reports pt. is normally alert and oriented 3-4 at baseline, RN also questioned nursing staff about pt. having modeled skin and appearing dusky states that is not normal for pt. intermediate staff reports pt. last known normal was 10/10/22 at approx. 2200
--- NOTE | 2022-10-11 23:35 | PM.IMHP ---
H&P: HPI History of Present Illness Date/Time: 10/11/22 23:35 Chief Complaint: Altered mental status Narrative: This is a 57-year-old female with past medical history significant for morbid obesity. No other past significant medical history last admission was a year ago for for a fall. Pain and was brought to the emergency room today for evaluation of altered mental status EMS was called to the patient is house she was found to be tachycardic and received at no seen which did not break the rhythm in emergency room patient underwent synchronized cardioversion. At the time of my visit patient is delirious, obtunded, unable to give any history. Preliminary workup was significant for lactic acid of 4.3, WBC 44805, AST/ALT/alk phos 396/161/[address] was reported as: FINDINGS: There is no intracranial hemorrhage, acute infarction, or abnormal mass lesion. The ventricles are normal. There is no abnormal mass effect or midline shift. The villarreal-white matter differentiation is normal. The basal cisterns are patent. The orbits are normal. The paranasal sinuses, mastoids and calvarium are normal. ? IMPRESSION: 1. No acute intracranial abnormality. A CTA was reported as: FINDINGS: CTA CHEST: Respiratory motion artifact limits evaluation for pulmonary embolus. The pulmonary arteries are moderately well-opacified. No definite pulmonary embolus is identified. Cardiomegaly is noted. Examination is captured mostly in the expiratory phase. There are airspace opacities of the left lower lobe. No pleural effusion or pneumothorax. No pathologically enlarged thoracic lymph nodes are identified. There is moderate thoracic spondylosis. ABDOMEN/PELVIS CT: The liver, spleen, pancreas, and adrenal glands are normal. There is wall calcification of the gallbladder. There is mild enlargement of the common bile duct of unclear etiology The kidneys are unremarkable. No pathologically enlarged abdominal or pelvic lymph nodes are identified. There is no free intraperitoneal gas or evidence of bowel obstruction. The appendix is normal. Multiple uterine fibroids are noted. There is mild lumbar spondylosis. IMPRESSION: 1. No pulmonary embolus identified, sensitivity limited by respiratory motion artifact and moderate pulmonary artery opacification. 2. Left lower lobe airspace opacities, consistent with atelectasis and/or pneumonia. 3. Cardiomegaly. 4. Mild enlargement of the common bile duct of unclear etiology. Review of Systems Review of Systems: ROS unobtainable: Yes unobtainable due to mental status (Delirium) [facility] Past Medical History Medical History (Updated 10/12/22 @ 02:30 by Maureen Andrew MD) Morbid obesity Surgical History Surgical History (Updated 10/19/21 @ 00:06 by Alesha Betancur PA-C) History of tubal ligation Family History Family History Father Heart disease Social History Social History (Updated 10/19/21 @ 00:07 by Alesha Betancur PA-C) Social History: Surrogate decision maker: Toby (boyfriend) or Janene (son's fiance). Code status: Full code. Smoking packs per day: 1.5 Smoking cigarettes per day: 30.0 Years smoked: 10 Smoking pack-years: 15.00 Smoking status: Never smoker Tobacco type: cigarettes Alcohol intake: former Substance use: former Substance use type: marijuana Additional living arrangements comments: Currently living in [place] with a roommate. Additional occupation/education comments: Unemployed. Meds Home Medications and Allergies Home Medications Medication Instructions Recorded Confirmed Type aluminum-mag hydroxide-simethicone 20 ml PO TID PRN Constipation 10/12/22 10/12/22 History 200 mg-200 mg-20 mg/5 mL oral susp multivitamin s-snjsrdsb-vzlfdri 1 tablet PO DAILY 10/12/22 10/12/22 History fumarate 18 mg-vitamin K 25 mcg tablet Allergies Allergy/AdvReac Type Severity Reaction Status
[2022-10-11] MEDS: SODIUM CHLORIDE 0.9% IV 3,300 ML/1,000 ML BAG 999 ML IV CONT (23:43)
[2022-10-11 23:54] LABS: INR 1.1; Partial Thromboplastin Time 36.6 SECONDS (22.3-36.8); Prothrombin Time 13.5 Seconds (11.1-14.7)
[2022-10-12] VITALS (46 sets, daily range): BP systolic 120–140; BP diastolic 69–85; PULSE 64–101; RESP 12–33; TEMP 37–38.7; O2SAT 91–99; BMI 42.7
--- NOTE | 2022-10-12 | ECHO_ITS ---
Patient Info Name: Wilma Dunn Age: 57 years : 1965 Gender: Female Ht: 65 in Wt: 244 lbs BSA: 2.31 m2 HR: 78 bpm BP: 120 / 73 mmHg Heart Rhythm: Sinus Rhythm Technical Quality: Fair Exam Date: 10/12/2022 8:07 AM Exam Location: [facility] Room: ICU-5 Patient Status: Inpatient Admit Date: 10/11/2022 Staff Ordering Physician: Maureen Andrew MD Wallpaperer Helper: Mague Mayorga RDCS Attending Provider: Maureen Andrew MD Referring Physician: Kamran BORDEN; Exam Type: CA echo doppler color flow Study Info Complete two-dimensional, color flow and Doppler transthoracic echocardiogram is performed. Summary 1. Complete two-dimensional, color flow and Doppler transthoracic echocardiogram is performed. 2. Normal left ventricular size thickness and contractility. 3. No significant valvular dysfunction. Left Ventricle Left ventricular chamber dimension is normal. Left ventricular systolic function is normal, estimated at 60-65%. The left ventricular diastolic function is grade I diastolic dysfunction. Right Ventricle Right ventricular chamber dimension is normal. Left Atria Left atrial chamber dimension is normal. Right Atria Right atrial chamber dimension is normal. Aortic Valve The aortic valve is normal. Pulmonic Valve The pulmonic valve is not well visualized. Mitral Valve The mitral valve has normal leaflets. Tricuspid Valve The tricuspid valve leaflets are normal. Pericardium/Pleural The pericardium appears normal. Aorta The aortic root size at the sinus of Valsalva is normal. Left Ventricular Outflow Tract Name Value Normal LVOT 2D LVOT Diameter 2.0 cm LVOT Doppler LVOT Peak Gradient 7 mmHg LVOT Mean Gradient 4 mmHg LVOT VTI 29 cm LVOT VTI/AV VTI Ratio 0.9 LVOT Stroke Volume 90 ml LVOT CO 17.8 l/min LVOT CI 7.7 l/min/m2 Pulmonic Valve Name Value Normal PV Doppler PV Peak Gradient 5 mmHg Mitral Valve Name Value Normal MV Doppler MV Decel [place] 394 cm/s2 MV PHT 64 ms MV Area (PHT) 3.4 cm2 4.0-5.0 MV Diastolic Function MV E Peak Velocity 87 cm/s MV A Peak Velocity 43 cm/s MV E/A
--- NOTE | 2022-10-12 00:29 | PC.NURSE ---
RN contacted correction, correction reports pt. is normally alert and oriented 3-4 at baseline, RN also questioned nursing staff about pt. having mottled skin and appearing dusky states that is not normal for pt. correction staff reports pt. last known normal was 10/10/22 at approx. 2200
[2022-10-12] MEDS: SODIUM CHLORIDE 0.9% IV 3,300 ML/1,000 ML BAG 999 ML IV CONT ×3 (00:46→00:47)
--- NOTE | 2022-10-12 00:55 | PC.NURSE ---
pt. given 3,000 ml IV bolus
--- NOTE | 2022-10-12 01:06 | ADMGEN ---
This patient, Wilma Dunn, was admitted to Intensive Care Unit-5. Patient/family oriented to hospital policies and general routines including ID bracelet, bed and alarms, visiting hours, pain management, procedures, bathroom and other care routines, personal items, smoking policy, room service/diet, and visiting hours. Information on how to activate the Rapid Response Team has been discussed. Patient/Family are encouraged to report perceived risks to care and to ask questions if they do not understand what they are told or what they should do.
[2022-10-12 01:10] LABS: Troponin I < 0.012 ng/mL (0.000-0.034)
[2022-10-12 01:33] LABS: Reflex Lactic Acid Yes or No Add Lactic
[2022-10-12] MEDS: AZTREONAM 2 GM in SODIUM CHLORIDE 0.9% IV 100 ML 200 ML IVPB ×3 (02:56→18:54)
[2022-10-12 04:06] LABS: Troponin I 0.041 ng/mL (0.000-0.034)
[2022-10-12 07:14] LABS: Lactic Acid Reflex 2.7 mmol/L (0.7-2.0)
[2022-10-12 07:28] LABS: Troponin I 0.043 ng/mL (0.000-0.034)
--- NOTE | 2022-10-12 08:59 | PM.IMPN ---
Progress Note: A&P Assessment and Plan (1) Sepsis: Code(s): A41.9 - Sepsis, unspecified organism Status: Acute Assessment and Plan: Unsure of etiology, continue broad-spectrum antibiotics with vancomycin and aztreonam Elevated LFTs noted, check right upper quadrant ultrasound and hepatitis panel (2) Elevated LFTs: Code(s): R79.89 - Other specified abnormal findings of blood chemistry Status: Acute Assessment and Plan: Likely secondary to hypoperfusion from sepsis, monitor (3) Lactic acidosis: Code(s): E87.20 - Acidosis, unspecified Status: Acute Assessment and Plan: Patient with SVT in the 200s Status post cardioversion Continue IV fluids, lactate trending down, continue to follow (4) Lung infiltrate: Code(s): R91.8 - Other nonspecific abnormal finding of lung field Status: Acute Assessment and Plan: Patient started on broad-spectrum antibiotics Cultures in progress Leukocytosis is worsening today, will broaden antibiotics (5) SVT (supraventricular tachycardia): Code(s): I47.1 - Supraventricular tachycardia Status: Acute Assessment and Plan: Status post synchronized cardioversion Echocardiogram pending Cardio consult appreciated, started on beta gabriela Plan DVT prophylaxis with Lovenox GI prophylaxis with PPI Code status full code Subjective Date/time seen: 10/12/22 08:59 Interval history: No overnight events noted. No chest pain or shortness of breath. No nausea, vomiting or diarrhea. No fevers or chills. Patient did have an episode of emesis yesterday. She states she feels quite ill and weak. She feels about the same as when she came in. Review of Systems Review of Systems: 12 point review of systems was assessed and was negative except as noted in the HPI Exam Narrative: General: Acutely ill-appearing female, weak and somewhat somnolent HEENT: Atraumatic, normocephalic, mucous membranes dry CV: Regular rate and rhythm, S1, S2 Lungs: Poor air entry, diminished throughout, no audible wheeze or rhonchi noted Abdomen: Soft, nondistended, somewhat tender to palpation Extremities: Normal to inspection Skin: No rashes noted, no lesions or wounds seen Psych: Unable to assess Objective Data Vital Signs Vital Signs: Vital Signs - 24 hr 10/11/22 21:15 10/11/22 22:04 10/11/22 21:15 Temperature 98.0 F Pulse Rate 100 100 196 H Respiratory Rate 25 H Blood Pressure 135/118 H Pulse Oximetry 97 Oxygen Delivery Nasal Cannula Oxygen Flow Rate 4.0 10/11/22 21:20 10/11/22 21:30 10/11/22 21:45 Temperature Pulse Rate 101 H 102 H 101 H Respiratory Rate 24 H 21 H 24 H Blood Pressure Pulse Oximetry 95 99 Oxygen Delivery Oxygen Flow Rate 10/11/22 21:56 10/11/22 22:00 10/11/22 22:01 Temperature Pulse Rate 100 102 H 104 H Respiratory Rate 24 H 28 H 30 H Blood Pressure 152/91 H 162/85 H Pulse Oximetry 99 Oxygen Delivery Oxygen Flow Rate 10/11/22 22:15 10/11/22 22:30 10/11/22 22:51 Temperature Pulse Rate 101 H 105 H 107 H Respiratory Rate 28 H 23 H 24 H Blood Pressure Pulse Oximetry 95 96 94 Oxygen Delivery Oxygen Flow Rate 10/11/22 23:00 10/11/22 23:15 10/11/22 23:30 Temperature 98.8 F Pulse Rate 108 H 111 H 103 H Respiratory Rate 24 H 24 H 23 H Blood Pressure 150/78 H 116/83 Pulse Oximetry 93 93 Oxygen Delivery Oxygen Flow Rate 10/11/22 23:45 10/12/22 00:14 10/12/22 00:15 Temperature Pulse Rate 105 H 98 101 H Respiratory Rate 27 H 24 H 30 H Blood Pressure Pulse Oximetry 91 Oxygen Delivery Oxygen Flow Rate 10/12/22 00:30 10/12/22 00:31 10/12/22 00:46 Temperature Pulse Rate 94 94 94 Respiratory Rate 23 H 23 H 21 H Blood Pressure 120/69 Pulse Oximetry 94 93 97 Oxygen Delivery Oxygen Flow Rate 10/12/22 01:45 10/12/22 02:00 10/12/22 04:00 Temperature 100.2 F H Pu
[2022-10-12] MEDS: ENOXAPARIN 40 MG/0.4 ML SYRINGE SUB-Q (09:29)
[2022-10-12] MEDS: VITAMIN B COMPLEX CAPSULE 1 CAP PO (09:29)
[2022-10-12] MEDS: CHOLECALCIFEROL 1,000 UNITS TABLET 2000 UNITS PO (09:29)
[2022-10-12] MEDS: ACIDOPHILUS/BULGARICUS CHEWABLE TABLET 2 TABLET BY MOUTH (09:29)
[2022-10-12] MEDS: FAMOTIDINE 20 MG TABLET PO (09:30)
[2022-10-12] MEDS: THERAPEUTIC MULTIVITAMINS/MINERALS TAB (*BKC) 1 TABLET PO (09:30)
[2022-10-12] MEDS: TOLNAFTATE 1% POWDER 45 GM BTL 1 APPLIC TOPICAL ×2 (09:30→20:17)
[2022-10-12] MEDS: gemfibroziL 600 MG TABLET PO (09:30)
[2022-10-12] MEDS: DICLOFENAC SODIUM 1% 100 GM GEL (*BKC) 1 APPLIC TOPICAL ×2 (09:30→20:17)
[2022-10-12] MEDS: LIDOCAINE 5% PATCH 1 PATCH TRANSDERM (09:30)
[2022-10-12 10:21] LABS: Hematocrit 43.7 % (37.0-47.0); Hemoglobin 13.2 g/dL (12.0-15.0); Mean Corpuscular HGB Conc 30.2 g/dl (32-36); Mean Corpuscular Hemoglobin 29.1 pg (26-34); Mean Corpuscular Volume 96.5 fl (80-100); Mean Platelet Volume 11.3 fl (7.4-10.4); Platelet Count Result 223 k/mm3 (150-375); Red Blood Count 4.53 M/mm3 (4.2-5.4); Red Cell Distribution Width 14.6 % (11.5-14.5); White Blood Count 17.1 K/mm3 (4.5-10.0)
[2022-10-12 11:01] LABS: Band Neutrophils Percent 15 % (0-6); Lymphocytes Absolute Manual 0.34 K/mm3 (1.1-4.5); Monocytes Absolute Manual 1.02 K/mm3 (0.1-0.90); Monocytes Percent Manual 6 % (3-9); Neutrophils Absolute Manual 15.73 K/mm3 (1.7-7.2); Neutrophils Percent Manual 77 % (46-73); Platelet Estimate Adequate (Adequate); Schistocytes None Seen (NORMAL); Total Cells Counted 100
[2022-10-12 11:55] LABS: Alanine Aminotransferase 299 U/L (6-35); Albumin Level 3.6 g/dL (3.5-5.1); Alkaline Phosphatase 211 U/L (38-126); Anion Gap 5 mmol/L (8-16); Aspartate Amino Transferase 542 U/L (14-36); Bilirubin,Total 3.2 mg/dL (0.2-1.3); Blood Urea Nitrogen 9 mg/dL (7-17); Calcium 8.5 mg/dL (8.4-10.2); Carbon Dioxide 27 mmol/L (22-30); Chloride 111 mmol/L (98-107); Estimated CRCL calculation 104 ml/min; Estimated Glomerular Filt Rate > 60; Glucose 101 mg/dL (65-110); Potassium 3.4 mmol/L (3.4-5.0); Sodium 143 mmol/L (137-145)
[2022-10-12 11:55] LABS: Glucose Point of Care 100 mg/dl (65-105)
[2022-10-12 11:57] LABS: Hemoglobin A1C 5.1 % (<5.7)
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
[2022-10-12 14:22] LABS: Lactic Acid Reflex 1.3 mmol/L (0.7-2.0)
[2022-10-12 15:00] LABS: Hepatitis B Surface Antigen Negative (Negative)
[2022-10-12 15:06] LABS: HAV RESULT Negative (Negative); Hepatitis B Core IgM Result Negative (Negative)
[2022-10-12 15:18] LABS: Hepatitis C Virus Antibody Negative (Negative)
[2022-10-12] MEDS: METOPROLOL SUCCINATE EXT REL 25 MG TABCR PO (15:42)
[2022-10-12] MEDS: PANTOPRAZOLE SODIUM IV 40 MG VIAL IV PUSH (15:43)
[2022-10-12] MEDS: metroNIDAZOLE 500 MG/ISO 100ML 500 MG/100 ML BAG 100 MG IVPB ×2 (15:59→20:21)
[2022-10-12 16:19] LABS: Glucose Point of Care 77 mg/dl (65-105)
[2022-10-12 16:19] LABS: Glucose Point of Care 88 mg/dl (65-105)
--- NOTE | 2022-10-12 16:40 | WPDGICN ---
Assessment and Plan Assessment and plan (1) Sepsis: Code(s): A41.9 - Sepsis, unspecified organism Status: Acute Assessment and Plan: here with sepsis, SVT that required cardioversion, noted also elevated liver enzymes (this also could be from sepsis) CT scan noted mild dilated bile duct and wall calcification of GB, will get ruq ultrasound to assess better gallbladder and possible MRCP to assess if bile duct abnormality will ask surgery to evaluate ? cholecystitis also with GN bacteremia, +/- ercp if stone on antibiotics (2) Gram-negative bacteremia: Code(s): R78.81 - Bacteremia Status: Acute Assessment and Plan: ? source- wonder if could be GB/biliary pending ultrasound already on antibiotics may need surgery based on work up (3) Acute encephalopathy: Code(s): G93.40 - Encephalopathy, unspecified Status: Acute (4) Elevated LFTs: Code(s): R79.89 - Other specified abnormal findings of blood chemistry Status: Acute Assessment and Plan: monitor hepatitis panel negative (5) Lactic acidosis: Code(s): E87.20 - Acidosis, unspecified Status: Acute (6) SVT (supraventricular tachycardia): Code(s): I47.1 - Supraventricular tachycardia Status: Acute Assessment and Plan: by cardiology resolved after treatment GI Consult Note Consult date/time: 10/12/22 16:40 Reason for consult: sepsis, bacteremia, elevated liver enzymes HPI: Wilma Dunn is a 57 year old female admitted here after she was found to be confused and delirious, obtunded, unable to give any history and obtained from records. She was taken to ER from local fdc by EMS after altered mental status, found to be very tachycardic, given adenosine and then treated with electrical cardioversion restoring sinus rhythm. Finally admitted to ICU. Workup showed lactic acid of 4.3, WBC 55647, AST/ALT/alk phos 396/161/[address] hear No acute intracranial abnormality. CTA chest/abdomen 1. No pulmonary embolus identified, sensitivity limited by respiratory motion artifact and moderate pulmonary artery opacification. 2. Left lower lobe airspace opacities, consistent with atelectasis and/or pneumonia. 3. Cardiomegaly. 4. Mild enlargement of the common bile duct of unclear etiology. Blood cultures GNR and she is on antibiotics. She knows that is at the hospital but can not give me more details, says that she feels sick. Review of Systems Review of Systems: ROS unobtainable: Yes unobtainable due to mental status PMFSH Past Medical History Medical History (Updated 10/12/22 @ 16:48 by Urbano West MD) Acute encephalopathy Gram-negative bacteremia Morbid obesity Surgical History Surgical History (Updated 10/19/21 @ 00:06 by Alesha Betancur PA-C) History of tubal ligation Family History Family History Father Heart disease Social History Social History (Updated 10/19/21 @ 00:07 by Alesha Betancur PA-C) Social History: Surrogate decision maker: Toby (boyfriend) or Janene (son's fiance). Code status: Full code. Smoking packs per day: 1.5 Smoking cigarettes per day: 30.0 Years smoked: 10 Smoking pack-years: 15.00 Smoking status: Never smoker Tobacco type: cigarettes Alcohol intake: unknown Substance use: unknown Substance use type: marijuana Additional living arrangements comments: Currently living in [place] with a roommate. Additional occupation/education comments: Unemployed. Spiritual care concerns: No Meds Home Medications and Allergies Home Medications Medication Instructions Recorded Confirmed Type Lactobacillus acidophilus 0.5 mg 1 mg PO DAILY 10/12/22 10/12/22 History (100 million cell) tablet aluminum-mag hydroxide-simethicone 20 ml PO TID PRN Constipation 10/12/22 10/12/22 History 200 mg-200 mg-20 mg/5 mL oral susp cholecalc
--- NOTE | 2022-10-12 18:40 | PC.NURSE ---
This patient, Wilma Dunn, was received from ICU on 10/12/22 at 1840. Patient/family oriented to unit policies and routines
[2022-10-12 20:46] LABS: Glucose Point of Care 96 mg/dl (65-105)
[2022-10-13] VITALS (15 sets, daily range): BP systolic 109–148; BP diastolic 60–97; PULSE 50–75; RESP 20–24; TEMP 36.4–37; O2SAT 92–98
[2022-10-13] MEDS: AZTREONAM 2 GM in SODIUM CHLORIDE 0.9% IV 100 ML 200 ML IVPB ×3 (01:12→18:21)
[2022-10-13 03:52] LABS: Basophils Percent Auto 0.5 % (0.2-1.2); Eosinophils Absolute Auto 0.1 K/mm3 (0-0.3); Hemoglobin 12.7 g/dL (12.0-15.0); Immature Granulocyte Absolute 0.08 K/mm3 (0.00-0.031); Lymphocytes Absolute Auto 0.94 K/mm3 (0.9-3.2); Lymphocytes Percent Auto 11.5 % (18.3-44.2); Mean Corpuscular Hemoglobin 28.9 pg (26-34); Mean Corpuscular Volume 93.4 fl (80-100); Mean Platelet Volume 10.7 fl (7.4-10.4); Monocytes Absolute Auto 0.3 K/mm3 (0.1-0.6); Neutrophils Absolute Auto 6.7 K/mm3 (1.3-6.7); Platelet Count Result 208 k/mm3 (150-375); Red Blood Count 4.39 M/mm3 (4.2-5.4); Red Cell Distribution Width 14.5 % (11.5-14.5); White Blood Count 8.2 K/mm3 (4.5-10.0)
[2022-10-13 04:06] LABS: Alanine Aminotransferase 378 U/L (6-35); Albumin Level 3.9 g/dL (3.5-5.1); Alkaline Phosphatase 225 U/L (38-126); Anion Gap 6 mmol/L (8-16); Aspartate Amino Transferase 538 U/L (14-36); Bilirubin,Total 3.9 mg/dL (0.2-1.3); Blood Urea Nitrogen 8 mg/dL (7-17); Calcium 8.7 mg/dL (8.4-10.2); Carbon Dioxide 27 mmol/L (22-30); Chloride 106 mmol/L (98-107); Estimated CRCL calculation 104 ml/min; Estimated Glomerular Filt Rate > 60; Glucose 118 mg/dL (65-110); Potassium 3.8 mmol/L (3.4-5.0); Sodium 139 mmol/L (137-145)
[2022-10-13] MEDS: metroNIDAZOLE 500 MG/ISO 100ML 500 MG/100 ML BAG 100 MG IVPB ×3 (05:34→21:34)
[2022-10-13 07:52] LABS: Glucose Point of Care 103 mg/dl (65-105)
[2022-10-13] MEDS: DICLOFENAC SODIUM 1% 100 GM GEL (*BKC) 1 APPLIC TOPICAL ×2 (08:22→21:35)
[2022-10-13] MEDS: ENOXAPARIN 40 MG/0.4 ML SYRINGE SUB-Q (08:22)
[2022-10-13] MEDS: TOLNAFTATE 1% POWDER 45 GM BTL 1 APPLIC TOPICAL ×2 (08:24→21:35)
[2022-10-13] MEDS: PANTOPRAZOLE SODIUM IV 40 MG VIAL IV PUSH (11:10)
--- NOTE | 2022-10-13 11:50 | PM.PNCARD ---
Progress Note: A&P Assessment and Plan (1) SVT (supraventricular tachycardia): Code(s): I47.1 - Supraventricular tachycardia Status: Acute Plan 57-year-old woman with very rapid supraventricular tachycardia with aberrant conduction arrhythmia was terminated electrically. The patient has been placed on a modest dose of metoprolol and we will follow this. Her echocardiogram yesterday did not show any significant structural cardiac abnormalities. This could have been triggered in part by the stress of Gram-negative sepsis. Soham Lion MD [facility] Subjective Date/time seen: Date of service: 10/13/22 11:50 Interval history: Follow-up visit in this 57-year-old woman with: Rapid supraventricular tachycardia etiology/mechanism of this is not entirely clear at this time. Arrhythmia was terminated electrically in the emergency room because of hemodynamic instability. Modest dose of beta-gabriela has been started. Patient also has been found to have Gram-negative sepsis with Klebsiella. Exam Const: General: comfortable and no acute distress Other: Obese white female offers no complaints this morning for rather blunted affect HENMT: Mouth: Yes moist mucous membranes Eyes: Sclera: sclerae normal Pupils: Equal, round and reactive pupils present Neck: Neck: supple Resp: Effort & Inspection: normal respiratory effort Auscultation: clear to auscultation bilaterally Cardio: Rate: regular rate Rhythm: regular rhythm Other: PMI is not palpable GI: GI Palp: Yes Soft to palpation Auscultation: normal bowel sounds Urinary Catheter: Urinary Catheter: patent and draining Skin: General skin exam: normal color Neuro: Other: Alert and oriented, slow mentation Objective Data Vital Signs Vital Signs: Vital Signs - 24 hr 10/12/22 12:00 10/12/22 14:00 10/12/22 15:42 Temperature Pulse Rate 66 83 68 Respiratory Rate 20 Blood Pressure Pulse Oximetry 97 Oxygen Delivery Room Air 10/12/22 16:00 10/12/22 13:10 10/12/22 13:36 Temperature Pulse Rate 75 71 66 Respiratory Rate 16 16 33 H Blood Pressure Pulse Oximetry 97 93 Oxygen Delivery Room Air 10/12/22 14:56 10/12/22 15:21 10/12/22 15:36 Temperature Pulse Rate 71 71 67 Respiratory Rate 19 20 16 Blood Pressure Pulse Oximetry Oxygen Delivery 10/12/22 16:14 10/12/22 16:33 10/12/22 16:00 Temperature 37.0 C Pulse Rate 77 76 74 Respiratory Rate 23 H 13 Blood Pressure Pulse Oximetry 93 Oxygen Delivery 10/12/22 18:00 10/12/22 20:32 10/12/22 20:00 Temperature 37.1 C Pulse Rate 80 82 75 Respiratory Rate 20 Blood Pressure 126/74 Pulse Oximetry 94 Oxygen Delivery 10/12/22 20:00 10/12/22 22:00 10/13/22 00:08 Temperature 36.9 C Pulse Rate 82 71 75 Respiratory Rate 20 20 Blood Pressure 138/97 H Pulse Oximetry 94 95 Oxygen Delivery Room Air 10/13/22 00:00 10/13/22 00:00 10/13/22 02:00 Temperature Pulse Rate 67 75 69 Respiratory Rate 20 Blood Pressure Pulse Oximetry 95 Oxygen Delivery Room Air 10/13/22 04:00 10/13/22 04:00 10/13/22 04:53 Temperature 36.4 C L Pulse Rate 64 69 71 Respiratory Rate 20 20 Blood Pressure 139/84 Pulse Oximetry 95 98 Oxygen Delivery Room Air 10/13/22 06:00 10/13/22 08:00 Temperature 37.0 C Pulse Rate 60 66 Respiratory Rate 20 Blood Pressure 137/70 Pulse Oximetry 93 Oxygen Delivery Intake/Output Intake/Output: Intake & Output 10/10/22 10/11/22 10/12/22 10/13/22 23:59 23:59 23:59 23:59 Intake Total 50 5150 700 Output Total 200 3000 1100 Balance -150 2150 -400 Meds/Results Medications: Active Medications Generic Name Dose Route Start Last Admin Trade Name Freq PRN Reason Stop Dose Admin Dextrose 12.5 gm 10/12/22 11:20 Dextrose 50% 25 Gm/50 Ml Syringe IV PUSH PRN PRN Hypoglycemia Protocol Diclofenac Sodium 1 applic 10/12/22 09:00 10/13/22 0
[2022-10-13 11:55] LABS: Glucose Point of Care 99 mg/dl (65-105)
--- NOTE | 2022-10-13 13:02 | PM.CNGS ---
Assessment and Plan Assessment and plan (1) Sepsis: Code(s): A41.9 - Sepsis, unspecified organism Status: Acute Assessment and Plan: Unknown source although does have Gram-negative bacteremia, continue broad-spectrum antibiotics (2) Transaminitis: Code(s): R74.01 - Elevation of levels of liver transaminase levels Status: Acute Assessment and Plan: patient does have ultrasound suggestive of cirrhosis, cholecystitis with cholelithiasis, common bile duct is mildly dilated as well, may need MRCP to clear common bile duct of obstruction, poor surgical candidate and will likely need percutaneous cholecystostomy tube if intervention required History of Present Illness Consult details Consult date: 10/13/22 Reason for consult: gallstones Requesting physician: Urbano West MD Narrative: The patient is a 57-year-old female with multiple medical issues presenting from her long term with mental status changes. Upon arriving in the ER, the patient was noted to be in SVT and subsequently had to be cardioverted. Workup was significant for sepsis, elevated liver enzymes, bacteremia. Patient is still confused and all history is obtained from the chart. Imaging is significant for cholelithiasis and dilated common bile duct as well as cirrhotic changes to the liver. Review of Systems Review of Systems: ROS unobtainable: Yes unobtainable due to mental status PMFSH Past Medical History Medical History Acute encephalopathy Gram-negative bacteremia Morbid obesity Surgical History Surgical History History of tubal ligation Family History Family History Father Heart disease Social History Social History Social History: Surrogate decision maker: Toby (boyfriend) or Janene (son's fiance). Code status: Full code. Smoking packs per day: 1.5 Smoking cigarettes per day: 30.0 Years smoked: 10 Smoking pack-years: 15.00 Smoking status: Never smoker Tobacco type: cigarettes Alcohol intake: unknown Substance use: unknown Substance use type: marijuana Additional living arrangements comments: Currently living in [place] with a roommate. Additional occupation/education comments: Unemployed. Spiritual care concerns: No Meds Home Medications and Allergies Home Medications Medication Instructions Recorded Confirmed Type Lactobacillus acidophilus 0.5 mg 1 mg PO DAILY 10/12/22 10/12/22 History (100 million cell) tablet aluminum-mag hydroxide-simethicone 20 ml PO TID PRN Constipation 10/12/22 10/12/22 History 200 mg-200 mg-20 mg/5 mL oral susp cholecalciferol (vitamin D3) 50 50 mcg PO DAILY 10/12/22 10/12/22 History mcg (2,000 unit) tablet (Vitamin D3) diclofenac sodium 1 % topical gel 1 g topical Q12H 10/12/22 10/12/22 History (Voltaren Arthritis Pain) famotidine 20 mg tablet 20 mg PO DAILY 10/12/22 10/12/22 History gemfibrozil 600 mg tablet 600 mg PO Q12H 10/12/22 10/12/22 History lidocaine 4 % topical patch 1 patch topical QAM 10/12/22 10/12/22 History (Aspercreme (lidocaine)) multivitamin c-lfqotaam-pvirvkq 1 tablet PO DAILY 10/12/22 10/12/22 History fumarate 18 mg-vitamin K 25 mcg tablet vitamin B complex (B 2 tablet PO DAILY 10/12/22 10/12/22 History Complex-Vitamin B12 tablet) Allergies Allergy/AdvReac Type Severity Reaction Status Date / Time Penicillins Allergy Unknown Anaphylaxis Verified 10/12/22 02:34 Vital Signs Vital Signs - 24 hr 10/12/22 14:00 10/12/22 15:42 10/12/22 16:00 Temperature Pulse Rate 83 68 75 Respiratory Rate 16 Blood Pressure Pulse Oximetry 97 Oxygen Delivery Room Air 10/12/22 13:10 10/12/22 13:36 10/12/22 14:56 Temperature Pulse Rate 71 66 71
[2022-10-13 14:36] LABS: Vancomycin Trough 12.9 ug/mL (10.0-20.0)
--- NOTE | 2022-10-13 15:45 | PC.NURSE ---
Multiple attempts made to contact sonLam at [phone] and [phone] to assist with completion of MRI checklist. Was unable to reach Lam. information systems technician made aware.
--- NOTE | 2022-10-13 16:14 | PM.IMPN ---
Progress Note: A&P Assessment and Plan (1) Sepsis: Code(s): A41.9 - Sepsis, unspecified organism Status: Acute Assessment and Plan: Sources likely intra-abdominal with cholecystectomy versus ascending cholangitis versus choledocholithiasis, continue broad-spectrum antibiotics with vancomycin and aztreonam Elevated LFTs continue to worsen, hepatitis panel negative, right upper quadrant ultrasound showed cholelithiasis, cirrhosis and a dilated common bile duct up to 7.8 mm, appreciate general surgery consultation for possible cholecystitis, may need cholecystostomy tube MRCP ordered and pending Leukocytosis resolved on current antibiotics, Flagyl added yesterday, will continue vancomycin, aztreonam and Flagyl for now (2) Elevated LFTs: Code(s): R79.89 - Other specified abnormal findings of blood chemistry Status: Acute Assessment and Plan: Likely secondary to hypoperfusion from sepsis, monitor (3) Lactic acidosis: Code(s): E87.20 - Acidosis, unspecified Status: Acute Assessment and Plan: Patient with SVT in the 200s Status post cardioversion Continue IV fluids, lactic acidosis resolved (4) Lung infiltrate: Code(s): R91.8 - Other nonspecific abnormal finding of lung field Status: Acute Assessment and Plan: Patient started on broad-spectrum antibiotics Cultures in progress Leukocytosis improved after adding Flagyl yesterday, 10/12 (5) SVT (supraventricular tachycardia): Code(s): I47.1 - Supraventricular tachycardia Status: Acute Assessment and Plan: Status post synchronized cardioversion Echocardiogram showed an EF of 60-65% with grade 1 diastolic dysfunction no significant valvular abnormalities noted, no pulmonary hypertension Cardio consult appreciated, started on beta gabriela Plan DVT prophylaxis with Lovenox GI prophylaxis with PPI Code status full code Subjective Date/time seen: 10/13/22 16:14 Interval history: No overnight events noted. No chest pain or shortness of breath. No nausea, vomiting or diarrhea. No fevers or chills. She still feels weak, but much better than yesterday. Review of Systems Review of Systems: ROS unobtainable: Yes unobtainable due to mental status Exam Narrative: General: Acutely ill-appearing female, weak, more alert than yesterday HEENT: Atraumatic, normocephalic, mucous membranes dry CV: Regular rate and rhythm, S1, S2 Lungs: Clear throughout, no wheeze, a little diminished at bases Abdomen: Soft, nondistended, a little tender to palpation Extremities: Normal to inspection Skin: No rashes noted, no lesions or wounds seen Psych: Euthymic, a little confused Objective Data Vital Signs Vital Signs: Vital Signs - 24 hr 10/12/22 16:33 10/12/22 18:00 10/12/22 20:32 Temperature 98.7 F Pulse Rate 76 80 82 Respiratory Rate 13 20 Blood Pressure 126/74 Pulse Oximetry 93 94 Oxygen Delivery 10/12/22 20:00 10/12/22 20:00 10/12/22 22:00 Temperature Pulse Rate 75 82 71 Respiratory Rate 20 Blood Pressure Pulse Oximetry 94 Oxygen Delivery Room Air 10/13/22 00:08 10/13/22 00:00 10/13/22 00:00 Temperature 98.4 F Pulse Rate 75 67 75 Respiratory Rate 20 20 Blood Pressure 138/97 H Pulse Oximetry 95 95 Oxygen Delivery Room Air 10/13/22 02:00 10/13/22 04:00 10/13/22 04:00 Temperature Pulse Rate 69 64 69 Respiratory Rate 20 Blood Pressure Pulse Oximetry 95 Oxygen Delivery Room Air 10/13/22 04:53 10/13/22 06:00 10/13/22 08:00 Temperature 97.5 F L 98.6 F Pulse Rate 71 60 66 Respiratory Rate 20 20 Blood Pressure 139/84 137/70 Pulse Oximetry 98 93 Oxygen Delivery 10/13/22 12:00 10/13/22 08:00 10/13/22 12:00 Temperature 98.1 F Pulse Rate 60 59 L 60 Respiratory Rate 24 H Blood Pressure 109/60 Pulse Oximetry 92 Oxygen Delivery 10/13/22 10:00 10/13/22 08:00 10/13/22 12:00 [place]
--- NOTE | 2022-10-13 16:51 | ECG_ITS ---
Measurements Intervals [place] Rate: 56 P: 79 IA: 220 QRS: -32 QRSD: 113 T: -20 QT: 482 QTc: 467 Interpretive Statements SINUS BRADYCARDIA WITH FIRST DEGREE AV BLOCK LEFT AXIS DEVIATION LEFT VENTRICULAR HYPERTROPHY BORDERLINE T WAVE ABNORMALITY- ANT/INF LEADS ABNORMAL ECG COMPARED TO ECG 10/11/2022 21:14:26 SINUS BRADYCARDIA NOW PRESENT FIRST DEGREE AV BLOCK NOW PRESENT Electronically Signed On 10-13-2022 19:49:38 [employer]ENDING MACHINE [employer]IN COLLECTOR by Chirag Hickman D.O.
[2022-10-13 17:30] LABS: Glucose Point of Care 106 mg/dl (65-105)
--- NOTE | 2022-10-13 20:05 | WPDGIPROGNO ---
Progress Note: A&P Assessment and Plan (1) Cirrhosis: Code(s): K74.60 - Unspecified cirrhosis of liver Status: Acute Assessment and Plan: ultrasound found cirrhosis (she is poor historian and confused but told me that used to drink alcohol but years ago), no ascites MRCP tomorrow to assess biliary system (2) Gram-negative bacteremia: Code(s): R78.81 - Bacteremia Status: Acute Assessment and Plan: on antibiotics (3) Acute encephalopathy: Code(s): G93.40 - Encephalopathy, unspecified Status: Acute (4) SVT (supraventricular tachycardia): Code(s): I47.1 - Supraventricular tachycardia Status: Acute (5) Transaminitis: Code(s): R74.01 - Elevation of levels of liver transaminase levels Status: Acute Assessment and Plan: from sepsis, new diagnosis of cirrhosis mrcp pending to assess if also choledocholithiasis she is poor candidate for surgery (6) Elevated LFTs: Code(s): R79.89 - Other specified abnormal findings of blood chemistry Status: Acute Assessment and Plan: monitor hepatitis negative Subjective Date/time seen: 10/13/22 20:05 Interval history: she was moved to IMU, she is more oriented today and looks better Review of Systems Review of Systems: All systems reviewed & are unremarkable except as noted in HPI and below Exam Const: General: no acute distress, ill appearing and obese HENMT: Head: normal to inspection, normocephalic and atraumatic Eyes: General: appearance normal, both eyes and all related structures Neck: Neck: normal visual inspection, full ROM and no lymphadenopathy Resp: Auscultation: clear to auscultation bilaterally Cardio: Rate: regular rate Rhythm: regular rhythm GI: Inspection: normal to inspection and non-distended GI Palp: No abdominal tenderness, Yes Soft to palpation, No Tenderness to palpation present (GI), No Guarding due to palpation present (GI) and No Rigid due to palpation Skin: General skin exam: normal color and no rashes or lesions noted Neuro: General: oriented to person, oriented to place and No oriented to time Extrem: General: normal to inspection and full ROM Objective Data Vital Signs Vital Signs: Vital Signs - 24 hr 10/12/22 20:32 10/12/22 22:00 10/13/22 00:08 Temperature 98.7 F 98.4 F Pulse Rate 82 71 75 Respiratory Rate 20 20 Blood Pressure 126/74 138/97 H Pulse Oximetry 94 95 Oxygen Delivery 10/13/22 00:00 10/13/22 00:00 10/13/22 02:00 Temperature Pulse Rate 67 75 69 Respiratory Rate 20 Blood Pressure Pulse Oximetry 95 Oxygen Delivery Room Air 10/13/22 04:00 10/13/22 04:00 10/13/22 04:53 Temperature 97.5 F L Pulse Rate 64 69 71 Respiratory Rate 20 20 Blood Pressure 139/84 Pulse Oximetry 95 98 Oxygen Delivery Room Air 10/13/22 06:00 10/13/22 08:00 10/13/22 12:00 Temperature 98.6 F 98.1 F Pulse Rate 60 66 60 Respiratory Rate 20 24 H Blood Pressure 137/70 109/60 Pulse Oximetry 93 92 Oxygen Delivery 10/13/22 08:00 10/13/22 12:00 10/13/22 10:00 Temperature Pulse Rate 59 L 60 62 Respiratory Rate Blood Pressure Pulse Oximetry Oxygen Delivery 10/13/22 08:00 10/13/22 12:00 10/13/22 14:00 Temperature Pulse Rate 50 L Respiratory Rate Blood Pressure Pulse Oximetry Oxygen Delivery Room Air Room Air 10/13/22 16:00 10/13/22 16:00 10/13/22 16:00 Temperature 98.0 F Pulse Rate 58 L 51 L Respiratory Rate 24 H Blood Pressure 116/70 Pulse Oximetry 93 Oxygen Delivery Room Air 10/13/22 17:51 Temperature Pulse Rate 66 Respiratory Rate Blood Pressure Pulse Oximetry Oxygen Delivery Intake/Output Intake/Output: Intake & Output 10/10/22 10/11/22 10/12/22 10/13/22 23:59 23:59 23:59 23:59 Intake Total 50 5150 1020 Output Total 200 3000 2000 Balance -150 2150 -980 Meds/Results Medications: Active Medications
[2022-10-13 20:11] LABS: Glucose Point of Care 116 mg/dl (65-105)
[2022-10-14] VITALS (13 sets, daily range): BP systolic 123–157; BP diastolic 60–83; PULSE 41–66; RESP 18–20; TEMP 36.1–36.6; O2SAT 92–98
[2022-10-14] MEDS: AZTREONAM 2 GM in SODIUM CHLORIDE 0.9% IV 100 ML 200 ML IVPB (01:34)
[2022-10-14 05:13] LABS: Basophils Absolute Auto 0.1 K/mm3 (0.0-0.1); Basophils Percent Auto 0.8 % (0.2-1.2); Eosinophils Absolute Auto 0.3 K/mm3 (0-0.3); Eosinophils Percent Auto 4.5 % (0-4.4); Hematocrit 39.8 % (37.0-47.0); Hemoglobin 12.3 g/dL (12.0-15.0); Immature Granulocyte Absolute 0.09 K/mm3 (0.00-0.031); Immature Granulocyte Percent A 1.5 % (0-0.5); Lymphocytes Absolute Auto 1.27 K/mm3 (0.9-3.2); Lymphocytes Percent Auto 21.1 % (18.3-44.2); Mean Corpuscular HGB Conc 30.9 g/dl (32-36); Mean Corpuscular Hemoglobin 28.8 pg (26-34); Mean Corpuscular Volume 93.2 fl (80-100); Mean Platelet Volume 10.4 fl (7.4-10.4); Monocytes Absolute Auto 0.3 K/mm3 (0.1-0.6); Monocytes Percent Auto 4.7 % (2.6-8.5); Neutrophils Absolute Auto 4.1 K/mm3 (1.3-6.7); Neutrophils Percent Auto 67.4 % (45.5-73.1); Platelet Count Result 223 k/mm3 (150-375); Red Blood Count 4.27 M/mm3 (4.2-5.4); Red Cell Distribution Width 14.6 % (11.5-14.5)
[2022-10-14 05:24] LABS: Alanine Aminotransferase 352 U/L (6-35); Albumin Level 3.8 g/dL (3.5-5.1); Alkaline Phosphatase 230 U/L (38-126); Anion Gap 2 mmol/L (8-16); Aspartate Amino Transferase 337 U/L (14-36); Bilirubin,Total 1.2 mg/dL (0.2-1.3); Blood Urea Nitrogen 9 mg/dL (7-17); Calcium 8.7 mg/dL (8.4-10.2); Carbon Dioxide 31 mmol/L (22-30); Chloride 106 mmol/L (98-107); Estimated CRCL calculation 104 ml/min; Estimated Glomerular Filt Rate > 60; Glucose 104 mg/dL (65-110); Potassium 3.4 mmol/L (3.4-5.0); Sodium 139 mmol/L (137-145)
[2022-10-14] MEDS: metroNIDAZOLE 500 MG/ISO 100ML 500 MG/100 ML BAG 100 MG IVPB ×2 (05:37→21:56)
[2022-10-14] MEDS: gemfibroziL 600 MG TABLET PO ×2 (08:42→16:22)
[2022-10-14] MEDS: CHOLECALCIFEROL 1,000 UNITS TABLET 2000 UNITS PO (08:42)
[2022-10-14] MEDS: TOLNAFTATE 1% POWDER 45 GM BTL 1 APPLIC TOPICAL ×2 (08:42→21:56)
[2022-10-14] MEDS: PANTOPRAZOLE SODIUM IV 40 MG VIAL IV PUSH (08:42)
[2022-10-14] MEDS: ACIDOPHILUS/BULGARICUS CHEWABLE TABLET 2 TABLET BY MOUTH (08:42)
[2022-10-14] MEDS: VITAMIN B COMPLEX CAPSULE 1 CAP PO (08:43)
[2022-10-14] MEDS: FAMOTIDINE 20 MG TABLET PO (08:43)
[2022-10-14] MEDS: THERAPEUTIC MULTIVITAMINS/MINERALS TAB (*BKC) 1 TABLET PO (08:43)
[2022-10-14] MEDS: METOPROLOL SUCCINATE EXT REL 25 MG TABCR PO (08:43)
[2022-10-14] MEDS: DICLOFENAC SODIUM 1% 100 GM GEL (*BKC) 1 APPLIC TOPICAL ×3 (08:44→21:57)
[2022-10-14 09:04] LABS: Glucose Point of Care 96 mg/dl (65-105)
--- NOTE | 2022-10-14 09:31 | PM.IMPN ---
Progress Note: A&P Assessment and Plan (1) Sepsis: Code(s): A41.9 - Sepsis, unspecified organism Status: Acute Assessment and Plan: 10/11: Sepsis source likely intra-abdominal with cholecystectomy versus ascending cholangitis versus choledocholithiasis, continue broad-spectrum antibiotics with vancomycin and aztreonam 10/12: Elevated LFTs continue to worsen, hepatitis panel negative, right upper quadrant ultrasound showed cholelithiasis, cirrhosis and a dilated common bile duct up to 7.8 mm, appreciate general surgery consultation for possible cholecystitis, may need cholecystostomy tube 10/13: Leukocytosis resolved on current antibiotics, flagyl added yesterday, will continue vancomycin, aztreonam and flagyl for now 10/14: Blood cx came back positive for klebsiella, sens to levaquin, will d/c vanc/aztreonam and start levaquin, cont flagyl, recheck blood cultures in 24h MRCP ordered and pending (2) Elevated LFTs: Code(s): R79.89 - Other specified abnormal findings of blood chemistry Status: Acute Assessment and Plan: Likely secondary to hypoperfusion from sepsis, monitor (3) Lactic acidosis: Code(s): E87.20 - Acidosis, unspecified Status: Acute Assessment and Plan: Patient with SVT in the 200s Status post cardioversion Continue IV fluids, lactic acidosis resolved (4) Lung infiltrate: Code(s): R91.8 - Other nonspecific abnormal finding of lung field Status: Acute Assessment and Plan: Patient started on broad-spectrum antibiotics Cultures in progress Leukocytosis improved after adding Flagyl yesterday, 10/12 (5) SVT (supraventricular tachycardia): Code(s): I47.1 - Supraventricular tachycardia Status: Acute Assessment and Plan: Status post synchronized cardioversion Echocardiogram showed an EF of 60-65% with grade 1 diastolic dysfunction no significant valvular abnormalities noted, no pulmonary hypertension Cardio consult appreciated, started on beta gabriela Plan DVT prophylaxis with Lovenox GI prophylaxis with PPI Code status full code Subjective Date/time seen: 10/14/22 09:31 Interval history: No overnight events noted. No chest pain or shortness of breath. No nausea, vomiting or diarrhea. No fevers or chills. She still feels weak, but much better than yesterday. Review of Systems Review of Systems: 12 point review of systems was assessed and was negative except as noted in the HPI Exam Narrative: General: Slightly weak female, much more alert and oriented HEENT: Atraumatic, normocephalic, mucous membranes dry CV: Regular rate and rhythm, S1, S2 Lungs: Clear throughout, no wheeze, a little diminished at bases Abdomen: Soft, nondistended, a little tender to palpation Extremities: Normal to inspection Skin: No rashes noted, no lesions or wounds seen Psych: Euthymic, not confused Objective Data Vital Signs Vital Signs: Vital Signs - 24 hr 10/13/22 12:00 10/13/22 12:00 10/13/22 10:00 Temperature 98.1 F Pulse Rate 60 60 62 Respiratory Rate 24 H Blood Pressure 109/60 Pulse Oximetry 92 Oxygen Delivery 10/13/22 12:00 10/13/22 14:00 10/13/22 16:00 Temperature Pulse Rate 50 L 58 L Respiratory Rate Blood Pressure Pulse Oximetry Oxygen Delivery Room Air 10/13/22 16:00 10/13/22 16:00 10/13/22 17:51 Temperature 98.0 F Pulse Rate 51 L 66 Respiratory Rate 24 H Blood Pressure 116/70 Pulse Oximetry 93 Oxygen Delivery Room Air 10/13/22 20:00 10/13/22 20:00 10/13/22 23:32 Temperature 97.8 F 97.9 F Pulse Rate 53 L 62 66 Respiratory Rate 20 20 20 Blood Pressure 110/61 148/69 H Pulse Oximetry 93 93 98 Oxygen Delivery Room Air 10/13/22 20:00 10/13/22 22:00 10/14/22 00:00 Temperature Pulse Rate 62 58 L 53 L Respiratory Rate Blood Pressure Pulse Oximetry Oxygen Delivery 10/14/22 00:00 10/14/22 02:00
--- NOTE | 2022-10-14 10:53 | PM.PNGS ---
Progress Note: A&P Assessment and Plan (1) Elevated LFTs: Code(s): R79.89 - Other specified abnormal findings of blood chemistry Status: Acute Assessment and Plan: ? etiology, will get MRCP to r/o biliary obstruction, exam cont to be benign (2) Cirrhosis: Code(s): K74.60 - Unspecified cirrhosis of liver Status: Acute Assessment and Plan: suggestion on U/S c nodular changes in the liver, pt c h/o drinking in the past Subjective Subjective Date/Time Seen: 10/14/22 10:53 feels ok, no abd pain, hungry Review of Systems Review of Systems: ROS unobtainable: Yes unobtainable due to mental status Exam Const: General: cooperative, comfortable, no acute distress, confusion and ill appearing Resp: Auscultation: diminished lung sounds Cardio: Rate: regular rate Rhythm: regular rhythm GI: Inspection: normal to inspection and non-distended GI Palp: No abdominal tenderness, Yes Soft to palpation, No Tenderness to palpation present (GI) and No Guarding due to palpation present (GI) Objective Data Vital Signs Vital Signs: Vital Signs - 24 hr 10/13/22 12:00 10/13/22 12:00 10/13/22 12:00 Temperature 36.7 C Pulse Rate 60 60 Respiratory Rate 24 H Blood Pressure 109/60 Pulse Oximetry 92 Oxygen Delivery Room Air 10/13/22 14:00 10/13/22 16:00 10/13/22 16:00 Temperature Pulse Rate 50 L 58 L Respiratory Rate Blood Pressure Pulse Oximetry Oxygen Delivery Room Air 10/13/22 16:00 10/13/22 17:51 10/13/22 20:00 Temperature 36.7 C 36.6 C Pulse Rate 51 L 66 53 L Respiratory Rate 24 H 20 Blood Pressure 116/70 110/61 Pulse Oximetry 93 93 Oxygen Delivery 10/13/22 20:00 10/13/22 23:32 10/13/22 20:00 Temperature 36.6 C Pulse Rate 62 66 62 Respiratory Rate 20 20 Blood Pressure 148/69 H Pulse Oximetry 93 98 Oxygen Delivery Room Air 10/13/22 22:00 10/14/22 00:00 10/14/22 00:00 Temperature Pulse Rate 58 L 53 L 66 Respiratory Rate 20 Blood Pressure Pulse Oximetry 98 Oxygen Delivery Room Air 10/14/22 02:00 10/14/22 04:00 10/14/22 04:00 Temperature Pulse Rate 54 L 54 L 54 L Respiratory Rate 20 Blood Pressure Pulse Oximetry 98 Oxygen Delivery Room Air 10/14/22 04:00 10/14/22 06:00 10/14/22 08:00 Temperature 36.6 C 36.3 C L Pulse Rate 62 52 L 58 L Respiratory Rate 20 18 Blood Pressure 157/75 H 143/83 H Pulse Oximetry 97 92 Oxygen Delivery 10/14/22 08:00 10/14/22 10:00 Temperature Pulse Rate 47 L 59 L Respiratory Rate Blood Pressure Pulse Oximetry Oxygen Delivery Intake/Output Intake/Output: Intake & Output 10/11/22 10/12/22 10/13/22 10/14/22 23:59 23:59 23:59 23:59 Intake Total 50 5150 1720 100 Output Total 200 3000 2000 800 Balance -150 2150 -280 -700 Meds/Results Medications: Active Medications Generic Name Dose Route Start Last Admin Trade Name Freq PRN Reason Stop Dose Admin Dextrose 12.5 gm 10/12/22 11:20 Dextrose 50% 25 Gm/50 Ml Syringe IV PUSH PRN PRN Hypoglycemia Protocol Diclofenac Sodium 1 applic 10/12/22 09:00 10/14/22 08:44 Diclofenac Sodium 1% 100 Gm Gel (*Bkc) TOPICAL 1 applic Q12HR GABBY Administration Enoxaparin Sodium 40 mg 10/12/22 09:00 10/14/22 08:53 Enoxaparin 40 Mg/0.4 Ml Syringe SUB-Q Not Given DAILY GABBY Famotidine 20 mg 10/12/22 09:00 10/14/22 08:43 Famotidine 20 Mg Tablet PO 20 mg DAILY GABBY Administration Gemfibrozil 600 mg 10/12/22 07:30 10/14/22 08:42 Gemfibrozil 600 Mg Tablet PO 600 mg 0730,1630 GABBY Administration Glucagon 1 mg 10/12/22 11:20 Glucagon For Inj 1 Mg Vial IM PRN PRN Hypoglycemia Protocol Glucose 15 gm 10/12/22 11:20 Glucose Oral Gel 15 Gm Of Glucse In 37.5 Gm Tube PO PRN PRN Hypoglycemia Protocol Dextrose 1,000 mls @ 100 mls/hr 10/12/22 11:20 Dextrose 5% 1,000 Ml IVPB PRN PRN Hyp
[2022-10-14 13:55] LABS: Glucose Point of Care 125 mg/dl (65-105)
--- NOTE | 2022-10-14 13:56 | WPDGIPROGNO ---
Progress Note: A&P Assessment and Plan (1) Cirrhosis: Code(s): K74.60 - Unspecified cirrhosis of liver Status: Acute Assessment and Plan: ultrasound found cirrhosis (she is poor historian and confused but told me that used to drink alcohol but years ago), no ascites MRCP still pending, need to assess biliary system she can eat after mri (2) Gram-negative bacteremia: Code(s): R78.81 - Bacteremia Status: Acute Assessment and Plan: klebsiella, on antibiotics ? source (3) Acute encephalopathy: Code(s): G93.40 - Encephalopathy, unspecified Status: Acute Assessment and Plan: improved (4) SVT (supraventricular tachycardia): Code(s): I47.1 - Supraventricular tachycardia Status: Acute (5) Transaminitis: Code(s): R74.01 - Elevation of levels of liver transaminase levels Status: Acute Assessment and Plan: from sepsis, new diagnosis of cirrhosis but normalization of bilirubin, ? already passed stone pending mrcp Subjective Date/time seen: 10/14/22 13:56 Interval history: comfortable, looks better, hungry Review of Systems Review of Systems: All systems reviewed & are unremarkable except as noted in HPI and below Exam Const: General: no acute distress, ill appearing and obese HENMT: Head: normal to inspection, normocephalic and atraumatic Eyes: General: appearance normal, both eyes and all related structures Neck: Neck: normal visual inspection, full ROM and no lymphadenopathy Resp: Auscultation: clear to auscultation bilaterally Cardio: Rate: regular rate Rhythm: regular rhythm GI: Inspection: normal to inspection and non-distended GI Palp: No abdominal tenderness, Yes Soft to palpation, No Tenderness to palpation present (GI), No Guarding due to palpation present (GI) and No Rigid due to palpation Skin: General skin exam: normal color and no rashes or lesions noted Neuro: General: oriented to person and oriented to place Other: more alert Extrem: General: normal to inspection and full ROM Objective Data Vital Signs Vital Signs: Vital Signs - 24 hr 10/13/22 14:00 10/13/22 16:00 10/13/22 16:00 Temperature Pulse Rate 50 L 58 L Respiratory Rate Blood Pressure Pulse Oximetry Oxygen Delivery Room Air 10/13/22 16:00 10/13/22 17:51 10/13/22 20:00 Temperature 98.0 F 97.8 F Pulse Rate 51 L 66 53 L Respiratory Rate 24 H 20 Blood Pressure 116/70 110/61 Pulse Oximetry 93 93 Oxygen Delivery 10/13/22 20:00 10/13/22 23:32 10/13/22 20:00 Temperature 97.9 F Pulse Rate 62 66 62 Respiratory Rate 20 20 Blood Pressure 148/69 H Pulse Oximetry 93 98 Oxygen Delivery Room Air 10/13/22 22:00 10/14/22 00:00 10/14/22 00:00 Temperature Pulse Rate 58 L 53 L 66 Respiratory Rate 20 Blood Pressure Pulse Oximetry 98 Oxygen Delivery Room Air 10/14/22 02:00 10/14/22 04:00 10/14/22 04:00 Temperature Pulse Rate 54 L 54 L 54 L Respiratory Rate 20 Blood Pressure Pulse Oximetry 98 Oxygen Delivery Room Air 10/14/22 04:00 10/14/22 06:00 10/14/22 08:00 Temperature 97.8 F 97.3 F L Pulse Rate 62 52 L 58 L Respiratory Rate 20 18 Blood Pressure 157/75 H 143/83 H Pulse Oximetry 97 92 Oxygen Delivery 10/14/22 08:00 10/14/22 10:00 10/14/22 08:00 Temperature Pulse Rate 47 L 59 L Respiratory Rate Blood Pressure Pulse Oximetry Oxygen Delivery Room Air 10/14/22 12:00 10/14/22 12:00 10/14/22 12:00 Temperature 97.5 F L Pulse Rate 57 L 57 L Respiratory Rate 18 Blood Pressure 123/70 Pulse Oximetry 93 Oxygen Delivery Room Air Intake/Output Intake/Output: Intake & Output 10/11/22 10/12/22 10/13/22 10/14/22 23:59 23:59 23:59 23:59 Intake Total 50 5150 1720 100 Output Total 200 3000 1999 800 Balance -150 2150 -280 -575 Meds/Results Medications: Active Medications Generic Name Dose Route Start Last
[2022-10-14] MEDS: metroNIDAZOLE 250 MG TABLET 500 MG PO (16:22)
[2022-10-14 16:58] LABS: Glucose Point of Care 91 mg/dl (65-105)
[2022-10-14 20:24] LABS: Glucose Point of Care 117 mg/dl (65-105)
[2022-10-14] MEDS: MORPHINE SULFATE (*CRX) 4 MG/ML INJ IV PUSH (21:57)
[2022-10-15] VITALS (15 sets, daily range): BP systolic 103–136; BP diastolic 65–86; PULSE 41–60; RESP 14–20; TEMP 36.4–36.7; O2SAT 95–98
[2022-10-15 02:57] LABS: Alanine Aminotransferase 274 U/L (6-35); Albumin Level 3.7 g/dL (3.5-5.1); Alkaline Phosphatase 209 U/L (38-126); Anion Gap 5 mmol/L (8-16); Aspartate Amino Transferase 181 U/L (14-36); Bilirubin,Total 0.9 mg/dL (0.2-1.3); Blood Urea Nitrogen 10 mg/dL (7-17); Calcium 8.8 mg/dL (8.4-10.2); Carbon Dioxide 28 mmol/L (22-30); Chloride 108 mmol/L (98-107); Estimated CRCL calculation 104 ml/min; Estimated Glomerular Filt Rate > 60; Glucose 107 mg/dL (65-110); Potassium 3.4 mmol/L (3.4-5.0); Sodium 141 mmol/L (137-145)
[2022-10-15 03:18] LABS: Vancomycin Trough 6.7 ug/mL (10.0-20.0)
[2022-10-15 03:33] LABS: Basophils Absolute Auto 0.1 K/mm3 (0.0-0.1); Basophils Percent Auto 0.9 % (0.2-1.2); Eosinophils Absolute Auto 0.3 K/mm3 (0-0.3); Eosinophils Percent Auto 5.3 % (0-4.4); Hematocrit 38.4 % (37.0-47.0); Immature Granulocyte Absolute 0.09 K/mm3 (0.00-0.031); Immature Granulocyte Percent A 1.6 % (0-0.5); Lymphocytes Absolute Auto 1.45 K/mm3 (0.9-3.2); Lymphocytes Percent Auto 25.7 % (18.3-44.2); Mean Corpuscular HGB Conc 31.3 g/dl (32-36); Mean Corpuscular Hemoglobin 28.8 pg (26-34); Mean Corpuscular Volume 92.3 fl (80-100); Mean Platelet Volume 10.5 fl (7.4-10.4); Monocytes Absolute Auto 0.4 K/mm3 (0.1-0.6); Monocytes Percent Auto 6.9 % (2.6-8.5); Neutrophils Absolute Auto 3.4 K/mm3 (1.3-6.7); Neutrophils Percent Auto 59.6 % (45.5-73.1); Platelet Count Result 234 k/mm3 (150-375); Red Blood Count 4.16 M/mm3 (4.2-5.4); Red Cell Distribution Width 14.7 % (11.5-14.5); White Blood Count 5.7 K/mm3 (4.5-10.0)
[2022-10-15] MEDS: metroNIDAZOLE 500 MG/ISO 100ML 500 MG/100 ML BAG 100 MG IVPB ×3 (05:49→21:05)
--- NOTE | 2022-10-15 08:05 | PM.IMPN ---
Progress Note: A&P Assessment and Plan (1) Sepsis: Code(s): A41.9 - Sepsis, unspecified organism Status: Acute Assessment and Plan: 10/11: Sepsis with source likely intra-abdominal with cholecystitis versus ascending cholangitis versus choledocholithiasis, continue broad-spectrum antibiotics with vancomycin and aztreonam 10/12: Elevated LFTs continue to worsen, hepatitis panel negative, right upper quadrant ultrasound showed cholelithiasis, cirrhosis and a dilated common bile duct up to 7.8 mm, appreciate general surgery consultation for possible cholecystitis, may need cholecystostomy tube, Flagyl added due to worsening leukocytosis 10/13: Leukocytosis resolved on current antibiotics, continue vancomycin, aztreonam and Flagyl 10/14: Blood cx came back positive for klebsiella, sens to levaquin, will d/c vanc/aztreonam and start levaquin, cont flagyl, recheck blood cultures in 24h 10/15: MRCP showed 2 mm stone in the CBD, cholelithiasis, defer to GI for further care, ERCP scheduled for tomorrow, (ID pharm found that patient had previously tolerated cephalosporin, levaquin d/c in favor of rocephin) cont flagyl (2) Elevated LFTs: Code(s): R79.89 - Other specified abnormal findings of blood chemistry Status: Acute Assessment and Plan: Suspect secondary to choledocholithiasis, resolving, monitor (3) Lactic acidosis: Code(s): E87.20 - Acidosis, unspecified Status: Acute Assessment and Plan: Patient with SVT in the 200s Status post cardioversion in the ER, likely triggered by sepsis and metabolic acidosis, now resolved Continue IV fluids, lactic acidosis resolved (4) Lung infiltrate: Code(s): R91.8 - Other nonspecific abnormal finding of lung field Status: Acute Assessment and Plan: Continue antibiotics as above (5) SVT (supraventricular tachycardia): Code(s): I47.1 - Supraventricular tachycardia Status: Acute Assessment and Plan: Status post synchronized cardioversion in the ER Echocardiogram showed an EF of 60-65% with grade 1 diastolic dysfunction no significant valvular abnormalities noted, no pulmonary hypertension Cardio consult appreciated, started on beta gabriela, have had to hold it intermittently due to bradycardia into the 30-40s Plan PT/OT eval ordered DVT prophylaxis with Lovenox GI prophylaxis with PPI Code status full code Subjective Date/time seen: 10/15/22 08:05 Interval history: No overnight events noted. No chest pain or shortness of breath. No nausea, vomiting or diarrhea. No fevers or chills. Patient states she feels almost back to normal, just a little weak. Review of Systems Review of Systems: 12 point review of systems was assessed and was negative except as noted in the HPI Exam Narrative: General: No acute distress, alert and oriented per baseline HEENT: Atraumatic, normocephalic, mucous membranes dry CV: Regular rate and rhythm, S1, S2 Lungs: Clear throughout, no wheeze, a little diminished at bases Abdomen: Soft, nondistended, a little tender to palpation Extremities: Normal to inspection Skin: No rashes noted, no lesions or wounds seen Psych: Euthymic, not confused Objective Data Vital Signs Vital Signs: Vital Signs - 24 hr 10/14/22 10:00 10/14/22 12:00 10/14/22 12:00 Temperature Pulse Rate 59 L 57 L Respiratory Rate Blood Pressure Pulse Oximetry Oxygen Delivery Room Air 10/14/22 12:00 10/14/22 14:00 10/14/22 16:00 Temperature 97.5 F L 96.9 F L Pulse Rate 57 L 52 L 45 L Respiratory Rate 18 18 Blood Pressure 123/70 131/77 Pulse Oximetry 93 98 Oxygen Delivery 10/14/22 16:00 10/14/22 16:00 10/14/22 18:00 Temperature Pulse Rate 49 L 50 L Respiratory Rate Blood Pressure Pulse Oximetry Oxygen Delivery Room Air 10/14/22 20:00 10/14/22 20:00 10/14/22 20:00 Temperature 97.8 F Pulse Rate 55 L 5
[2022-10-15 08:12] LABS: Glucose Point of Care 92 mg/dl (65-105)
[2022-10-15] MEDS: VITAMIN B COMPLEX CAPSULE 1 CAP PO (09:25)
[2022-10-15] MEDS: ACIDOPHILUS/BULGARICUS CHEWABLE TABLET 2 TABLET BY MOUTH (09:25)
[2022-10-15] MEDS: cefTRIAXone 2 GM in SODIUM CHLORIDE 0.9% IV 100 ML 200 ML IVPB (09:25)
[2022-10-15] MEDS: ENOXAPARIN 40 MG/0.4 ML SYRINGE SUB-Q (09:26)
[2022-10-15] MEDS: DICLOFENAC SODIUM 1% 100 GM GEL (*BKC) 1 APPLIC TOPICAL ×2 (09:26→21:06)
[2022-10-15] MEDS: PANTOPRAZOLE SODIUM IV 40 MG VIAL IV PUSH (09:26)
[2022-10-15] MEDS: CHOLECALCIFEROL 1,000 UNITS TABLET 2000 UNITS PO (09:26)
[2022-10-15] MEDS: gemfibroziL 600 MG TABLET PO ×2 (09:26→17:34)
[2022-10-15] MEDS: THERAPEUTIC MULTIVITAMINS/MINERALS TAB (*BKC) 1 TABLET PO (09:26)
[2022-10-15] MEDS: TOLNAFTATE 1% POWDER 45 GM BTL 1 APPLIC TOPICAL ×2 (09:26→21:06)
[2022-10-15] MEDS: FAMOTIDINE 20 MG TABLET PO (09:26)
--- NOTE | 2022-10-15 11:35 | PM.PNGS ---
Progress Note: A&P Assessment and Plan (1) Choledocholithiasis: Code(s): K80.50 - Calculus of bile duct without cholangitis or cholecystitis without obstruction Status: Acute Assessment and Plan: MRCP reviewed, exam cont to be benign, LFTs mildly elevated, will d/w GI need for ERCP given pt c multiple comorbidities and relative assymptomatology Subjective Subjective Date/Time Seen: 10/15/22 11:35 no abd pain, no N/V Review of Systems Review of Systems: All systems reviewed & are unremarkable except as noted in HPI and below Exam Const: General: cooperative, comfortable, no acute distress and lethargic Resp: Auscultation: clear to auscultation bilaterally Cardio: Rate: regular rate Rhythm: regular rhythm GI: Inspection: normal to inspection and non-distended GI Palp: No abdominal tenderness, Yes Soft to palpation, No Tenderness to palpation present (GI), No Guarding due to palpation present (GI) and No Rigid due to palpation Objective Data Vital Signs Vital Signs: Vital Signs - 24 hr 10/14/22 12:00 10/14/22 12:00 10/14/22 12:00 Temperature 36.4 C L Pulse Rate 57 L 57 L Respiratory Rate 18 Blood Pressure 123/70 Pulse Oximetry 93 Oxygen Delivery Room Air 10/14/22 14:00 10/14/22 16:00 10/14/22 16:00 Temperature 36.1 C L Pulse Rate 52 L 45 L Respiratory Rate 18 Blood Pressure 131/77 Pulse Oximetry 98 Oxygen Delivery Room Air 10/14/22 16:00 10/14/22 18:00 10/14/22 20:00 Temperature 36.6 C Pulse Rate 49 L 50 L 55 L Respiratory Rate 20 Blood Pressure 142/67 H Pulse Oximetry 96 Oxygen Delivery 10/14/22 20:00 10/14/22 20:00 10/14/22 22:00 Temperature Pulse Rate 57 L 57 L 41 L Respiratory Rate 20 Blood Pressure Pulse Oximetry 96 Oxygen Delivery Room Air 10/14/22 23:11 10/15/22 00:00 10/15/22 00:00 Temperature 36.6 C Pulse Rate 41 L 41 L 45 L Respiratory Rate 20 20 Blood Pressure 131/60 Pulse Oximetry 98 98 Oxygen Delivery Room Air 10/15/22 02:00 10/15/22 04:00 10/15/22 04:00 Temperature Pulse Rate 51 L 43 L 43 L Respiratory Rate 20 Blood Pressure Pulse Oximetry 98 Oxygen Delivery Room Air 10/15/22 04:00 10/15/22 06:00 10/15/22 08:00 Temperature 36.7 C 36.7 C Pulse Rate 50 L 43 L 51 L Respiratory Rate 20 16 Blood Pressure 103/65 130/78 Pulse Oximetry 97 95 Oxygen Delivery 10/15/22 08:00 10/15/22 08:00 10/15/22 10:00 Temperature Pulse Rate 52 L 44 L Respiratory Rate Blood Pressure Pulse Oximetry 95 Oxygen Delivery Room Air Intake/Output Intake/Output: Intake & Output 10/12/22 10/13/22 10/14/22 10/15/22 23:59 23:59 23:59 23:59 Intake Total 5150 1720 820 250 Output Total 3000 2000 1350 1000 Balance 2150 -280 -530 -750 Meds/Results Medications: Active Medications Generic Name Dose Route Start Last Admin Trade Name Freq PRN Reason Stop Dose Admin Dextrose 12.5 gm 10/12/22 11:20 Dextrose 50% 25 Gm/50 Ml Syringe IV PUSH PRN PRN Hypoglycemia Protocol Diclofenac Sodium 1 applic 10/12/22 09:00 10/15/22 09:26 Diclofenac Sodium 1% 100 Gm Gel (*Bkc) TOPICAL 1 applic Q12HR GABBY Administration Enoxaparin Sodium 40 mg 10/12/22 09:00 10/15/22 09:26 Enoxaparin 40 Mg/0.4 Ml Syringe SUB-Q 40 mg DAILY GABBY Administration Famotidine 20 mg 10/12/22 09:00 10/15/22 09:26 Famotidine 20 Mg Tablet PO 20 mg DAILY GABBY Administration Gemfibrozil 600 mg 10/12/22 07:30 10/15/22 09:26 Gemfibrozil 600 Mg Tablet PO 600 mg 0730,1630 GABBY Administration Glucagon 1 mg 10/12/22 11:20 Glucagon For Inj 1 Mg Vial IM PRN PRN Hypoglycemia Protocol Glucose 15 gm 10/12/22 11:20 Glucose Oral Gel 15 Gm Of Glucse In 37.5 Gm Tube PO PRN PRN Hypoglycemia Protocol Dextrose 1,000 mls @ 100 mls/hr 10/12/22 11:20 Dextrose 5% 1,000 Ml IVPB PRN PRN Hypoglycemia
[2022-10-15 11:39] LABS: Glucose Point of Care 97 mg/dl (65-105)
--- NOTE | 2022-10-15 14:48 | WPDGIPROGNO ---
Progress Note: A&P Assessment and Plan (1) Choledocholithiasis: Code(s): K80.50 - Calculus of bile duct without cholangitis or cholecystitis without obstruction Status: Acute Assessment and Plan: mrcp reviewed, possible 2 mm stone in cbd ercp tomorrow lft's trending down, wonder if about to pass stone surgery on board, high risk for surgery (2) Cirrhosis: Code(s): K74.60 - Unspecified cirrhosis of liver Status: Acute Assessment and Plan: ultrasound found cirrhosis (she is poor historian and confused but told me that used to drink alcohol but years ago), no ascites (3) Gram-negative bacteremia: Code(s): R78.81 - Bacteremia Status: Acute Assessment and Plan: klebsiella, on antibiotics ? source, wonder if biliary but lft's trending down (4) Acute encephalopathy: Code(s): G93.40 - Encephalopathy, unspecified Status: Acute Assessment and Plan: improved (5) SVT (supraventricular tachycardia): Code(s): I47.1 - Supraventricular tachycardia Status: Acute (6) Transaminitis: Code(s): R74.01 - Elevation of levels of liver transaminase levels Status: Acute Assessment and Plan: from sepsis, new diagnosis of cirrhosis trending now with normal bilirubin now Subjective Date/time seen: 10/15/22 14:48 Interval history: no changes Review of Systems Review of Systems: All systems reviewed & are unremarkable except as noted in HPI and below Exam Const: General: no acute distress, ill appearing and obese Other: slightly lethargic HENMT: Head: normal to inspection, normocephalic and atraumatic Eyes: General: appearance normal, both eyes and all related structures Neck: Neck: normal visual inspection, full ROM and no lymphadenopathy Resp: Auscultation: clear to auscultation bilaterally Cardio: Rate: regular rate Rhythm: regular rhythm GI: Inspection: normal to inspection and non-distended GI Palp: No abdominal tenderness, Yes Soft to palpation, No Tenderness to palpation present (GI), No Guarding due to palpation present (GI) and No Rigid due to palpation Skin: General skin exam: normal color and no rashes or lesions noted Neuro: General: oriented to person and oriented to place Other: more alert Extrem: General: normal to inspection and full ROM Objective Data Vital Signs Vital Signs: Vital Signs - 24 hr 10/14/22 16:00 10/14/22 16:00 10/14/22 16:00 Temperature 96.9 F L Pulse Rate 45 L 49 L Respiratory Rate 18 Blood Pressure 131/77 Pulse Oximetry 98 Oxygen Delivery Room Air 10/14/22 18:00 10/14/22 20:00 10/14/22 20:00 Temperature 97.8 F Pulse Rate 50 L 55 L 57 L Respiratory Rate 20 20 Blood Pressure 142/67 H Pulse Oximetry 96 96 Oxygen Delivery Room Air 10/14/22 20:00 10/14/22 22:00 10/14/22 23:11 Temperature 97.8 F Pulse Rate 57 L 41 L 41 L Respiratory Rate 20 Blood Pressure 131/60 Pulse Oximetry 98 Oxygen Delivery 10/15/22 00:00 10/15/22 00:00 10/15/22 02:00 Temperature Pulse Rate 41 L 45 L 51 L Respiratory Rate 20 Blood Pressure Pulse Oximetry 98 Oxygen Delivery Room Air 10/15/22 04:00 10/15/22 04:00 10/15/22 04:00 Temperature 98.0 F Pulse Rate 43 L 43 L 50 L Respiratory Rate 20 20 Blood Pressure 103/65 Pulse Oximetry 98 97 Oxygen Delivery Room Air 10/15/22 06:00 10/15/22 08:00 10/15/22 08:00 Temperature 98.1 F Pulse Rate 43 L 51 L Respiratory Rate 16 Blood Pressure 130/78 Pulse Oximetry 95 95 Oxygen Delivery Room Air 10/15/22 08:00 10/15/22 10:00 10/15/22 11:50 Temperature 97.5 F L Pulse Rate 52 L 44 L 50 L Respiratory Rate 16 Blood Pressure 136/71 Pulse Oximetry 96 Oxygen Delivery 10/15/22 12:00 10/15/22 12:00 10/15/22 14:01 Temperature Pulse Rate 59 L 49 L Respiratory Rate Blood Pressure Pulse Oximetry 95 Oxygen Delivery Room Air [facility]
[2022-10-15 16:41] LABS: Glucose Point of Care 119 mg/dl (65-105)
[2022-10-15 20:31] LABS: Glucose Point of Care 116 mg/dl (65-105)
[2022-10-16] VITALS (22 sets, daily range): BP systolic 106–153; BP diastolic 55–98; PULSE 32–70; RESP 14–22; TEMP 36.2–36.7; O2SAT 92–100
[2022-10-16 04:25] LABS: Basophils Absolute Auto 0.1 K/mm3 (0.0-0.1); Eosinophils Absolute Auto 0.3 K/mm3 (0-0.3); Eosinophils Percent Auto 4.5 % (0-4.4); Hematocrit 40.5 % (37.0-47.0); Hemoglobin 12.4 g/dL (12.0-15.0); Immature Granulocyte Absolute 0.11 K/mm3 (0.00-0.031); Immature Granulocyte Percent A 1.7 % (0-0.5); Lymphocytes Percent Auto 31.8 % (18.3-44.2); Mean Corpuscular HGB Conc 30.6 g/dl (32-36); Mean Corpuscular Volume 94.8 fl (80-100); Mean Platelet Volume 10.3 fl (7.4-10.4); Monocytes Absolute Auto 0.5 K/mm3 (0.1-0.6); Monocytes Percent Auto 7.5 % (2.6-8.5); Neutrophils Absolute Auto 3.4 K/mm3 (1.3-6.7); Neutrophils Percent Auto 53.5 % (45.5-73.1); Platelet Count Result 264 k/mm3 (150-375); Red Blood Count 4.27 M/mm3 (4.2-5.4); Red Cell Distribution Width 14.9 % (11.5-14.5); White Blood Count 6.3 K/mm3 (4.5-10.0)
[2022-10-16 04:36] LABS: Alanine Aminotransferase 214 U/L (6-35); Albumin Level 3.3 g/dL (3.5-5.1); Alkaline Phosphatase 191 U/L (38-126); Anion Gap 4 mmol/L (8-16); Aspartate Amino Transferase 121 U/L (14-36); Bilirubin,Total 0.6 mg/dL (0.2-1.3); Blood Urea Nitrogen 9 mg/dL (7-17); Calcium 8.4 mg/dL (8.4-10.2); Carbon Dioxide 29 mmol/L (22-30); Chloride 112 mmol/L (98-107); Estimated CRCL calculation 104 ml/min; Estimated Glomerular Filt Rate > 60; Glucose 108 mg/dL (65-110); Potassium 3.3 mmol/L (3.4-5.0); Sodium 145 mmol/L (137-145)
[2022-10-16] MEDS: metroNIDAZOLE 500 MG/ISO 100ML 500 MG/100 ML BAG 100 MG IVPB ×3 (05:22→22:06)
[2022-10-16 08:51] LABS: Glucose Point of Care 96 mg/dl (65-105)
[2022-10-16 10:29] LABS: Glucose Point of Care 89 mg/dl (65-105)
[2022-10-16] MEDS: LACTATED RINGERS 1,000 ML 150 ML IV CONT (10:48)
--- NOTE | 2022-10-16 10:50 | WPDANESEPPF ---
Anes - Initial Pre Proc Eval Procedure: Operation Date: 10/16/22 11:30 Proposed Procedures p Endoscopic Retro Cholangiopancreatogram - [place] MD Date/Time: 10/16/22 10:50 Surgeon: Maureen Andrew MD Pre Op Diagnosis: sepsis, transaminitis,svt,AMS Patient Data Age: 57 Gender: F Height: 1.6 m Weight: 110.9 kg Last Vital Signs Temp 97.2 F L 10/16/22 08:00 Pulse 70 10/16/22 10:00 Resp 16 10/16/22 08:00 BP 113/72 10/16/22 08:00 Pulse Ox 97 10/16/22 08:00 O2 Del Method Room Air 10/16/22 04:00 O2 Flow Rate 1 10/12/22 04:00 Allergies Allergy/AdvReac Type Severity Reaction Status Date / Time Penicillins Allergy Unknown Anaphylaxis Verified 10/15/22 08:32 Home Medications Medication Instructions Recorded Confirmed Type Lactobacillus acidophilus 0.5 mg 1 mg PO DAILY 10/12/22 10/12/22 History (100 million cell) tablet aluminum-mag hydroxide-simethicone 20 ml PO TID PRN Constipation 10/12/22 10/12/22 History 200 mg-200 mg-20 mg/5 mL oral susp cholecalciferol (vitamin D3) 50 50 mcg PO DAILY 10/12/22 10/12/22 History mcg (2,000 unit) tablet (Vitamin D3) diclofenac sodium 1 % topical gel 1 g topical Q12H 10/12/22 10/12/22 History (Voltaren Arthritis Pain) famotidine 20 mg tablet 20 mg PO DAILY 10/12/22 10/12/22 History gemfibrozil 600 mg tablet 600 mg PO Q12H 10/12/22 10/12/22 History lidocaine 4 % topical patch 1 patch topical QAM 10/12/22 10/12/22 History (Aspercreme (lidocaine)) multivitamin v-ismuvibq-buzsopq 1 tablet PO DAILY 10/12/22 10/12/22 History fumarate 18 mg-vitamin K 25 mcg tablet vitamin B complex (B 2 tablet PO DAILY 10/12/22 10/12/22 History Complex-Vitamin B12 tablet) Laboratory Tests 10/15/22 10/15/22 10/15/22 11:31 16:25 20:27 WBC RBC Hgb Hct MCV MCH MCHC RDW Plt Count MPV Immature Gran % (Auto) Neut % (Auto) Lymph % (Auto) Bee % (Auto) Eos % (Auto) Baso % (Auto) Lymph # (Auto) Bee # (Auto) Eos # (Auto) Baso # (Auto) Abs Immat Gran (auto) Absolute Neuts (auto) Absolute Nucleated RBC Nucleated RBC % Sodium Potassium Chloride Carbon Dioxide Anion Gap BUN Creatinine Estim Creat Clear Calc Estimated GFR Glucose POC Capillary Glucose 97 mg/dl mg/dl 119 mg/dl H mg/dl 116 mg/dl H mg/dl (65-105) (65-105) (65-105) Calcium Total Bilirubin AST ALT Alkaline Phosphatase Total Protein Albumin 10/16/22 10/16/22 10/16/22 03:26 03:26 07:59 WBC 6.3 K/mm3 K/mm3 (4.5-10.0) RBC 4.27 M/mm3 M/mm3 (4.2-5.4) Hgb 12.4 g/dL g/dL (12.0-15.0) Hct 40.5 % % (37.0-47.0) MCV 94.8 fl fl (80-100) MCH 29.0 pg pg (26-34) MCHC 30.6 g/dl L g/dl (32-36) RDW 14.9 % H % (11.5-14.5) Plt Count 264 k/mm3 k/mm3 (150-375) MPV 10.3 fl fl (7.4-10.4) Immature Gran % (Auto) 1.7 % H % (0-0.5) Neut % (Auto) 53.5 % % (45.5-73.1) Lymph % (Auto) 31.8 % % (18.3-44.2) Bee % (Auto) 7.5 % % (2.6-8.5) Eos % (Auto) 4.5 % H % (0-4.4) Baso % (Auto) 1.0 % % (0.2-1.2) Lymph # (Auto) 2.00 K/mm3 K/mm3 (0.9-3.2) Bee # (Auto) 0.5 K/mm3 K/mm3 (0.1-0.6) Eos # (Auto) 0.3 K/mm3 K/mm3 (0-0.3) Baso # (Auto) 0.1 K/mm3 K/mm3 (0.0-0.1) Abs Immat Gran (auto) 0.11 K/mm3 H K/mm3 (0.00-0.031) Absolute Neuts (auto)
--- NOTE | 2022-10-16 11:08 | PM.PNGS ---
Progress Note: A&P Assessment and Plan (1) Choledocholithiasis: Code(s): K80.50 - Calculus of bile duct without cholangitis or cholecystitis without obstruction Status: Acute Assessment and Plan: MRCP reviewed. GI planning ERCP today. Will await results. Patient is a poor surgical candidate. Will continue to follow along regarding optimal timing if she ends up needing an interval cholecystectomy. (2) Cirrhosis: Code(s): K74.60 - Unspecified cirrhosis of liver Status: Acute Assessment and Plan: Increases surgical risks. (3) Transaminitis: Code(s): R74.01 - Elevation of levels of liver transaminase levels Status: Acute Assessment and Plan: Overall downward trend since admission. MRCP reviewed with evidence of probable CBD stone. ERCP planned for today. Plan I have discussed the patient's case and plan of care with Dr. Leonard. Subjective Subjective Date/Time Seen: 10/16/22 09:08 Patient reports: no new complaints, flatus, bowel movement and afebrile Interval history: This is a 57-year-old woman who presented to the ER 5 days ago with an altered mental status from the group home. She was admitted for sepsis, Gram-negative bacteremia, acute encephalopathy, elevated LFTs, and supraventricular tachycardia. Imaging also suggested a dilated common bile duct. MRCP yesterday showed a probable common bile duct stone and cholelithiasis. GI is planning an ERCP today. Chart reviewed. Patient seen in the IMU today. She is NPO for the ERCP. She reports tolerating her diet yesterday without any complaints. Denies any abdominal pain or nausea this morning. No specific complaints. Exam Const: General: no acute distress and alert Orientation/consciousness: patient oriented x3 GI: Inspection: non-distended and obesity GI Palp: Yes Soft to palpation, Yes Tenderness to palpation present (GI) (mild TTP RUQ), No Guarding due to palpation present (GI) and No Rebound tenderness present Auscultation: normal bowel sounds Psych: Insight: Fair insight present (Psych) Objective Data Vital Signs Vital Signs: Vital Signs - 24 hr 10/15/22 11:50 10/15/22 12:00 10/15/22 12:00 Temperature 97.5 F L Pulse Rate 50 L 59 L Respiratory Rate 16 Blood Pressure 136/71 Pulse Oximetry 96 95 Oxygen Delivery Room Air 10/15/22 14:01 10/15/22 14:00 10/15/22 16:00 Temperature Pulse Rate 49 L 51 L 55 L Respiratory Rate Blood Pressure Pulse Oximetry Oxygen Delivery 10/15/22 16:00 10/15/22 16:00 10/15/22 18:00 Temperature 97.5 F L Pulse Rate 56 L 51 L Respiratory Rate 14 Blood Pressure 134/84 Pulse Oximetry 95 95 Oxygen Delivery Room Air 10/15/22 20:00 10/15/22 20:00 10/15/22 20:00 Temperature 97.9 F Pulse Rate 60 60 49 L Respiratory Rate 20 20 Blood Pressure 126/86 Pulse Oximetry 98 98 Oxygen Delivery Room Air 10/15/22 22:00 10/15/22 23:15 10/16/22 00:00 Temperature 97.7 F Pulse Rate 58 L 53 L 52 L Respiratory Rate 20 Blood Pressure 105/78 Pulse Oximetry 97 Oxygen Delivery 10/16/22 00:00 10/16/22 04:00 10/16/22 02:00 Temperature 98.0 F Pulse Rate 53 L 60 46 L Respiratory Rate 20 18 Blood Pressure 122/79 Pulse Oximetry 97 97 Oxygen Delivery Room Air 10/16/22 04:00 10/16/22 04:00 10/16/22 06:00 Temperature Pulse Rate 59 L 59 L 38 L Respiratory Rate 18 Blood Pressure Pulse Oximetry 97 Oxygen Delivery Room Air 10/16/22 06:21 10/16/22 08:00 10/16/22 08:00 Temperature 97.2 F L Pulse Rate 32 L 62 40 L Respiratory Rate 16 Blood Pressure 113/72 Pulse Oximetry 97 Oxygen Delivery 10/16/22 10:00 Temperature Pulse Rate 70 Respiratory Rate Blood Pressure Pulse Oximetry Oxygen Delivery Intake/Output Intake/Output: Intake & Output 10/13/22 10/14/22 10/15/22 10/16/22 23:59 23:59 23:59 23:59 Intake Total 1720 1520 1080 300 Output Total 1999 7007 7051
--- NOTE | 2022-10-16 11:14 | PCOTNOTE ---
Attempted OT evaluation, patient currently off the unit for a procedure. Will follow.
[2022-10-16 12:14] LABS: Glucose Point of Care 88 mg/dl (65-105)
[2022-10-16 14:01] LABS: Glucose Point of Care 98 mg/dl (65-105)
[2022-10-16] MEDS: cefTRIAXone 2 GM in SODIUM CHLORIDE 0.9% IV 100 ML 200 ML IVPB (14:04)
[2022-10-16] MEDS: ENOXAPARIN 40 MG/0.4 ML SYRINGE SUB-Q (14:06)
[2022-10-16] MEDS: CHOLECALCIFEROL 1,000 UNITS TABLET 2000 UNITS PO (14:06)
[2022-10-16] MEDS: PANTOPRAZOLE SODIUM IV 40 MG VIAL IV PUSH (14:06)
[2022-10-16] MEDS: FAMOTIDINE 20 MG TABLET PO (14:07)
[2022-10-16] MEDS: VITAMIN B COMPLEX CAPSULE 1 CAP PO (14:07)
[2022-10-16] MEDS: THERAPEUTIC MULTIVITAMINS/MINERALS TAB (*BKC) 1 TABLET PO (14:07)
[2022-10-16] MEDS: DICLOFENAC SODIUM 1% 100 GM GEL (*BKC) 1 APPLIC TOPICAL ×2 (14:07→20:17)
[2022-10-16] MEDS: gemfibroziL 600 MG TABLET PO (14:08)
[2022-10-16] MEDS: ACIDOPHILUS/BULGARICUS CHEWABLE TABLET 2 TABLET BY MOUTH (14:08)
[2022-10-16] MEDS: TOLNAFTATE 1% POWDER 45 GM BTL 1 APPLIC TOPICAL ×2 (14:21→20:18)
--- NOTE | 2022-10-16 14:50 | PM.IMPN ---
Progress Note: A&P Assessment and Plan (1) Sepsis: Code(s): A41.9 - Sepsis, unspecified organism Status: Acute Assessment and Plan: 10/11: Sepsis with source likely intra-abdominal with cholecystitis versus ascending cholangitis versus choledocholithiasis, continue broad-spectrum antibiotics with vancomycin and aztreonam 10/12: Elevated LFTs continue to worsen, hepatitis panel negative, right upper quadrant ultrasound showed cholelithiasis, cirrhosis and a dilated common bile duct up to 7.8 mm, appreciate general surgery consultation for possible cholecystitis, may need cholecystostomy tube, Flagyl added due to worsening leukocytosis 10/13: Leukocytosis resolved on current antibiotics, continue vancomycin, aztreonam and Flagyl 10/14: Blood cx came back positive for klebsiella, sens to levaquin, will d/c vanc/aztreonam and start levaquin, cont flagyl, recheck blood cultures in 24h 10/15: MRCP showed 2 mm stone in the CBD, cholelithiasis, defer to GI for further care, ERCP scheduled for tomorrow, ([place] pharm found that patient had previously tolerated cephalosporin, levaquin d/c in favor of rocephin) cont flagyl 10/16: ERCP performed with removal of 4mm dark stone and sludge. BCx postive for Klebsiella with repeat BCx NGTD. Continue Rocephin and Flagyl. Also showing porcelin GB. General surgery consulted. (2) Elevated LFTs: Code(s): R79.89 - Other specified abnormal findings of blood chemistry Status: Acute Assessment and Plan: Suspect secondary to choledocholithiasis, resolving, monitor (3) Lung infiltrate: Code(s): R91.8 - Other nonspecific abnormal finding of lung field Status: Acute Assessment and Plan: CT chest showing LLL airspace opacities. Continue antibiotics as above. (4) SVT (supraventricular tachycardia): Code(s): I47.1 - Supraventricular tachycardia Status: Acute Assessment and Plan: Status post synchronized cardioversion in the ER. Echocardiogram showed an EF of 60-65% with grade 1 diastolic dysfunction no significant valvular abnormalities noted, no pulmonary hypertension Tele showing occasional bradycardia. Currently on metoprolol but held frequently due to bradycardia. Cardio consult appreciated. Will decrease metoprolol dose. check apnealink (5) Lactic acidosis: Code(s): E87.20 - Acidosis, unspecified Status: Acute Assessment and Plan: Patient with SVT in the 200s Status post cardioversion in the ER, likely triggered by sepsis and metabolic acidosis, now resolved Lactic acidosis resolved Plan PT/OT DVT prophylaxis with Lovenox GI prophylaxis with PPI Code status full code Subjective Date/time seen: 10/16/22 14:50 Interval history: 57yo healthy female here for altered mental status. Assuming care. Chart reviewed. She is sleepy and just back from ERCP. No CP or abd pain. No SOB. Feels better Exam Narrative: AF 153/80 58 16 94% ra Gen - NARD Chest - CTA bilaterally, nml RR CV - RRR S1/S2. Tele showing occasional bradycardia. Abd - Soft, NT/ND, Positive BS Ext - No pedal edema Psych - Nml mood and affect. sleepy. Skin - Warm and dry; dry UE skin Objective Data Vital Signs Vital Signs: Vital Signs - 24 hr 10/15/22 16:00 10/15/22 16:00 10/15/22 16:00 Temperature 97.5 F L Pulse Rate 55 L 56 L Respiratory Rate 14 Blood Pressure 134/84 Pulse Oximetry 95 95 Oxygen Delivery Room Air Oxygen Flow Rate 10/15/22 18:00 10/15/22 20:00 10/15/22 20:00 Temperature 97.9 F Pulse Rate 51 L 60 60 Respiratory Rate 20 20 Blood Pressure 126/86 Pulse Oximetry 98 98 Oxygen Delivery Room Air Oxygen Flow Rate 10/15/22 20:00 10/15/22 22:00 10/15/22 23:15 Temperature 97.7 F Pulse Rate 49 L 58 L 53 L Respiratory Rate 20 Blood Pressure 105/78 Pulse Oximetry 97 Oxygen Delivery Oxygen Flow Rate 10/16/22 00:00 10/16/22 00:00 10/16/22 04:00
[2022-10-16 16:21] LABS: Glucose Point of Care 115 mg/dl (65-105)
[2022-10-16] MEDS: HYDROcodone/acetaminophen (*CRX) 5-325 MG TABLET 1 TAB PO (19:17)
--- NOTE | 2022-10-16 21:04 | ECG_ITS ---
Measurements Intervals [place] Rate: 58 P: 64 AL: 210 QRS: -35 QRSD: 109 T: -9 QT: 444 QTc: 437 Interpretive Statements SINUS BRADYCARDIA WITH FIRST DEGREE AV BLOCK MARKED LEFT AXIS DEVIATION [QRS AXIS < -30] VOLTAGE CRITERIA FOR LVH [MEETS CRITERIA IN ONE OF: R(aVL), S(V1), R(V5), R(V5/V6)+S(V1)] POSSIBLE ANTERIOR MYOCARDIAL INFARCTION [30 ms Q WAVE IN V3/V4, OR R < 0.2 mV IN V4], OF INDETERMINATE AGE NONSPECIFIC T-WAVE ABNORMALITY. ABNORMAL ECG Electronically Signed On 10-17-2022 10:06:33 [employer] by Jorge Luis Ramires M.D.
[2022-10-16] MEDS: ONDANSETRON INJ 4 MG/2 ML VIAL IV PUSH (21:14)
[2022-10-16 22:48] LABS: Troponin I < 0.012 ng/mL (0.000-0.034)
[2022-10-16 23:04] LABS: Glucose Point of Care 146 mg/dl (65-105)
[2022-10-16] MEDS: MORPHINE SULFATE (*CRX) 2 MG/ML INJ IV PUSH (23:05)
[2022-10-16 23:13] LABS: Lipase 14109 U/L (23-300)
[2022-10-17] VITALS (15 sets, daily range): BP systolic 117–167; BP diastolic 57–89; PULSE 53–73; RESP 16–20; TEMP 36.1–36.8; O2SAT 92–99
--- NOTE | 2022-10-17 01:06 | PCRCNOTE ---
Respiratory was not able to do JOLYNN study due to patient vomiting and not able to sleep. Will attempt to do monitor on 10/17/2022
[2022-10-17] MEDS: ONDANSETRON INJ 4 MG/2 ML VIAL IV PUSH ×2 (01:15→05:35)
[2022-10-17] MEDS: HYDROcodone/acetaminophen (*CRX) 5-325 MG TABLET 1 TAB PO ×2 (01:17→09:19)
[2022-10-17 01:58] LABS: Troponin I < 0.012 ng/mL (0.000-0.034)
[2022-10-17 04:48] LABS: Basophils Absolute Auto 0.1 K/mm3 (0.0-0.1); Basophils Percent Auto 0.3 % (0.2-1.2); Hematocrit 45.5 % (37.0-47.0); Hemoglobin 13.8 g/dL (12.0-15.0); Immature Granulocyte Absolute 0.18 K/mm3 (0.00-0.031); Immature Granulocyte Percent A 1.1 % (0-0.5); Lymphocytes Percent Auto 5.4 % (18.3-44.2); Mean Corpuscular HGB Conc 30.3 g/dl (32-36); Mean Corpuscular Hemoglobin 28.6 pg (26-34); Mean Corpuscular Volume 94.2 fl (80-100); Mean Platelet Volume 9.9 fl (7.4-10.4); Monocytes Absolute Auto 0.5 K/mm3 (0.1-0.6); Monocytes Percent Auto 3.2 % (2.6-8.5); Neutrophils Absolute Auto 14.9 K/mm3 (1.3-6.7); Platelet Count Result 316 k/mm3 (150-375); Red Blood Count 4.83 M/mm3 (4.2-5.4); Red Cell Distribution Width 14.6 % (11.5-14.5); White Blood Count 16.6 K/mm3 (4.5-10.0)
[2022-10-17 04:59] LABS: Alanine Aminotransferase 182 U/L (6-35); Albumin Level 3.9 g/dL (3.5-5.1); Alkaline Phosphatase 197 U/L (38-126); Anion Gap 10 mmol/L (8-16); Aspartate Amino Transferase 107 U/L (14-36); Bilirubin,Total 0.7 mg/dL (0.2-1.3); Blood Urea Nitrogen 7 mg/dL (7-17); Calcium 8.9 mg/dL (8.4-10.2); Carbon Dioxide 28 mmol/L (22-30); Chloride 110 mmol/L (98-107); Estimated CRCL calculation 122 ml/min; Estimated Glomerular Filt Rate > 60; Glucose 190 mg/dL (65-110); Potassium 3.3 mmol/L (3.4-5.0); Sodium 148 mmol/L (137-145)
[2022-10-17 05:10] LABS: Troponin I < 0.012 ng/mL (0.000-0.034)
[2022-10-17] MEDS: metroNIDAZOLE 500 MG/ISO 100ML 500 MG/100 ML BAG 100 MG IVPB ×3 (05:35→21:52)
[2022-10-17 05:43] LABS: Iron 35 ug/dL (37-170)
[2022-10-17 05:52] LABS: Percent Iron Saturation 8 % (20-50)
[2022-10-17 07:55] LABS: Glucose Point of Care 173 mg/dl (65-105)
[2022-10-17] MEDS: THERAPEUTIC MULTIVITAMINS/MINERALS TAB (*BKC) 1 TABLET PO (09:09)
[2022-10-17] MEDS: ENOXAPARIN 40 MG/0.4 ML SYRINGE SUB-Q (09:09)
[2022-10-17] MEDS: PANTOPRAZOLE SODIUM IV 40 MG VIAL IV PUSH (09:09)
[2022-10-17] MEDS: METOPROLOL SUCCINATE EXT REL 12.5 MG TABCR PO (09:09)
[2022-10-17] MEDS: FAMOTIDINE 20 MG TABLET PO (09:10)
[2022-10-17] MEDS: DICLOFENAC SODIUM 1% 100 GM GEL (*BKC) 1 APPLIC TOPICAL ×2 (09:10→20:27)
[2022-10-17] MEDS: TOLNAFTATE 1% POWDER 45 GM BTL 1 APPLIC TOPICAL ×2 (09:10→20:27)
[2022-10-17] MEDS: ACIDOPHILUS/BULGARICUS CHEWABLE TABLET 2 TABLET BY MOUTH (09:11)
--- NOTE | 2022-10-17 10:06 | WPDANESPN ---
Anes - Prog Note Post-Op Date/Time: 10/17/22 10:06 Cardiovascular status: normal Respiratory status: normal Airway patency: baseline Mental status: baseline Post-Op hydration status: normal Vital Signs: Last Vital Signs Temp 36.3 C L 10/17/22 08:00 Pulse 63 10/17/22 09:09 Resp 16 10/17/22 08:00 BP 153/89 H 10/17/22 08:00 Pulse Ox 94 10/17/22 08:00 O2 Del Method Room Air 10/17/22 08:48 O2 Flow Rate 2 10/17/22 08:00 Pain Score (VAS): Pt c/o stomach pain I/O: Intake & Output 10/16/22 10/17/22 10/17/22 23:59 07:59 15:59 Intake Total 790 200 Output Total 350 Balance 440 200 Laboratory Tests 10/17/22 04:27 10/17/22 04:27 10/16/22 10/16/22 10/16/22 07:59 10:19 12:12 WBC RBC Hgb Hct MCV MCH MCHC RDW Plt Count MPV Immature Gran % (Auto) Neut % (Auto) Lymph % (Auto) [place] % (Auto) Eos % (Auto) Baso % (Auto) Lymph # (Auto) [place] # (Auto) Eos # (Auto) Baso # (Auto) Abs Immat Gran (auto) Absolute Neuts (auto) Absolute Nucleated RBC Nucleated RBC % Sodium Potassium Chloride Carbon Dioxide Anion Gap BUN Creatinine Estim Creat Clear Calc Estimated GFR Glucose POC Capillary Glucose 96 89 88 Calcium Iron TIBC % Saturation Ferritin Total Bilirubin AST ALT Alkaline Phosphatase Troponin I Total Protein Albumin Alpha-1-AT Phenotype Ceruloplasmin Lipase RONEL Screen Mitochondria M2 IgG Ab 10/16/22 10/16/22 10/16/22 13:57 16:17 20:33 WBC RBC Hgb Hct MCV MCH MCHC RDW Plt Count MPV Immature Gran % (Auto) Neut % (Auto) Lymph % (Auto) [place] % (Auto) Eos % (Auto) Baso % (Auto) Lymph # (Auto) [place] # (Auto) Eos # (Auto) Baso # (Auto) Abs Immat Gran (auto) Absolute Neuts (auto) Absolute Nucleated RBC Nucleated RBC % Sodium Potassium Chloride Carbon Dioxide Anion Gap BUN Creatinine Estim Creat Clear Calc Estimated GFR Glucose POC Capillary Glucose 98 115 H 146 H Calcium Iron TIBC % Saturation Ferritin Total Bilirubin AST ALT Alkaline Phosphatase Troponin I Total Protein Albumin Alpha-1-AT Phenotype Ceruloplasmin Lipase RONEL Screen Mitochondria M2 IgG Ab 10/16/22 10/16/22 10/17/22 22:16 22:16 01:11 WBC RBC Hgb Hct MCV MCH MCHC RDW Plt Count MPV Immature Gran % (Auto) Neut % (Auto) Lymph % (Auto) [place] % (Auto) Eos % (Auto) Baso % (Auto) Lymph # (Auto) [place] # (Auto) Eos # (Auto) Baso # (Auto) Abs Immat Gran (auto) Absolute Neuts (auto) Absolute Nucleated RBC Nucleated RBC % Sodium Potassium Chloride Carbon Dioxide Anion Gap BUN Creatinine Estim Creat Clear Calc Estimated GFR Glucose POC Capillary Glucose Calcium Iron TIBC % Saturation Ferritin Total Bilirubin AST ALT Alkaline Phosphatase Troponin I < 0.012 < 0.012 Total Protein Albumin Alpha-1-AT Phenotype Ceruloplasmin Lipase Cancelled 92374 H RONEL Screen Mitochondria M2 IgG Ab 10/17/22 10/17/22 10/17/22 04:27 04:27 04:27 WBC 16.6 H RBC 4.83 Hgb 13.8 Hct 45.5 MCV 94.2 MCH 28.6 MCHC 30.3 L RDW 14.6 H Plt Count 316 MPV 9.9 Immature Gran % (Auto) 1.1 H Neut % (Auto) 90.0 H Lymph % (Auto) 5.4 L [place] % (Auto) 3.2 Eos % (Auto) 0.0 Baso % (Auto) 0.3 Lymph # (Auto) 0.90 [place] # (Auto) 0.5 Eos # (Auto) 0.0 Baso # (Auto) 0.1 Abs Immat Gran (auto) 0.18 H Absolute Neuts (auto) 14.9 H Absolute Nucleated RBC 0.0 Nucleated RBC % 0.0 Sodium 148 H Potassium 3.3 L Chloride 110 H Carbon Dioxide 28 Anio
[2022-10-17] MEDS: cefTRIAXone 2 GM in SODIUM CHLORIDE 0.9% IV 100 ML 200 ML IVPB (10:53)
[2022-10-17] MEDS: VITAMIN B COMPLEX CAPSULE 1 CAP PO (11:00)
[2022-10-17] MEDS: CHOLECALCIFEROL 1,000 UNITS TABLET 2000 UNITS PO (11:01)
[2022-10-17] MEDS: POTASSIUM CHLORIDE 20 MEQ TABLET 40 MEQ PO (11:01)
--- NOTE | 2022-10-17 11:52 | P.PNGS_ITS ---
Progress Note: A&P Assessment and Plan (1) Choledocholithiasis: Code(s): K80.50 - Calculus of bile duct without cholangitis or cholecystitis without obstruction <Dixie Hammbradford HAND LASTER - Last Filed: 10/17/22 12:18> Status: Acute <Dixie Hanna HAND LASTER - Last Filed: 10/17/22 12:18> Assessment and Plan: * S/p successful ERCP with sphincterotomy yesterday with a stone removed from the common duct. Now with post-ERCP pancreatitis. Will eventually need an interval cholecystectomy, but will defer for now with the pancreatitis. Most likely she will be brought back as an outpatient for the cholecystectomy. Will continue to follow along. <Dixie Hammbradford HAND LASTER - Last Filed: 10/17/22 12:18> (2) Pancreatitis: Code(s): K85.90 - Acute pancreatitis without necrosis or infection, unspecified <Dixie Hammbradford HAND LASTER - Last Filed: 10/17/22 12:18> Status: Acute <Dixie Hammbradford HAND LASTER - Last Filed: 10/17/22 12:18> Assessment and Plan: * Lipase last night 14,000 with new complaints of upper abdominal pain. Likely post-ERCP pancreatitis. Will back off to full liquid diet. May need to add IV fluids if not tolerating oral intake. Repeat labs tomorrow. <Dixie Hammbradford HAND LASTER - Last Filed: 10/17/22 12:18> (3) Transaminitis: Code(s): R74.01 - Elevation of levels of liver transaminase levels <Dixie Hammbradford HAND LASTER - Last Filed: 10/17/22 12:18> Status: Acute <Dixie Castillo Hammbradford HAND LASTER - Last Filed: 10/17/22 12:18> Assessment and Plan: * Overall downward trend since admission. Successful ERCP yesterday with common duct stone removed. <Dixie Hammbradford HAND LASTER - Last Filed: 10/17/22 12:18> (4) Cirrhosis: Code(s): K74.60 - Unspecified cirrhosis of liver <Dixie ZakiyaBrad Orlandowandy HAND LASTER - Last Filed: 10/17/22 12:18> Status: Acute <Dixie PerryOSCAR saba - Last Filed: 10/17/22 12:18> Assessment and Plan: I have discussed the patient's case and plan of care with Dr. Leonard. <Dixie Castillo PerryOSCAR saba - Last Filed: 10/17/22 12:18> Subjective Subjective Date/Time Seen: 10/17/22 09:52 <Dixie Chong OrlandoOSCAR saba - Last Filed: 10/17/22 12:18> Interval history: Patient s/p ERCP yesterday. Lipase checked last night and was 14,000. She is complaining of some upper abdominal pain today that has improved some with [place] this morning. Denies any nausea or vomiting. She reports poor appetite and has not eaten any of the breakfast that was given to her this morning. No other complaints at this time. <Dixie SigalaBrad PerryOSCAR saba - Last Filed: 10/17/22 12:18> Review of Systems Review of Systems: All systems reviewed & are unremarkable except as noted in HPI and below <Dixie ZakiyaBrad OrlandoOSCAR saba - Last Filed: 10/17/22 12:18> Exam Const: General: comfortable, no acute distress and alert <OSCAR Larios - Last Filed: 10/17/22 12:18> Orientation/consciousness: patient oriented x3 <Dixie Chong OrlandoOSCAR saba - Last Filed: 10/17/22 12:18> GI: Inspection: non-distended and obesity <OSCAR Larios - Last Filed: 10/17/22 12:18> GI Palp: Yes Soft to palpation, Yes Tenderness to palpation present (GI) (LUQ, epigastric, RUQ), No Guarding due to palpation present (GI) and No Rebound tenderness present <OSCAR Larios - Last Filed: 10/17/22 12:18> Auscultation: normal bowel sounds <OSCAR Larios - Last Filed: 10/17/22 12:18> Objective Data Vital Signs Vital Signs: Vital Signs - 24 hr 10/16/22 12:02 10/16/22 12:12 10/16/22 12:22
--- NOTE | 2022-10-17 11:52 | PM.PNGS ---
Progress Note: A&P Assessment and Plan (1) Choledocholithiasis: Code(s): K80.50 - Calculus of bile duct without cholangitis or cholecystitis without obstruction <Dixie Hammbradford WRAP CHECKER - Last Filed: 10/17/22 12:18> Status: Acute <Dixie Hanna WRAP CHECKER - Last Filed: 10/17/22 12:18> Assessment and Plan: S/p successful ERCP with sphincterotomy yesterday with a stone removed from the common duct. Now with post-ERCP pancreatitis. Will eventually need an interval cholecystectomy, but will defer for now with the pancreatitis. Most likely she will be brought back as an outpatient for the cholecystectomy. Will continue to follow along. <Dixie Hammbradford WRAP CHECKER - Last Filed: 10/17/22 12:18> (2) Pancreatitis: Code(s): K85.90 - Acute pancreatitis without necrosis or infection, unspecified <Dixie Hammbradford WRAP CHECKER - Last Filed: 10/17/22 12:18> Status: Acute <Dixie Hanna WRAP CHECKER - Last Filed: 10/17/22 12:18> Assessment and Plan: Lipase last night 14,000 with new complaints of upper abdominal pain. Likely post-ERCP pancreatitis. Will back off to full liquid diet. May need to add IV fluids if not tolerating oral intake. Repeat labs tomorrow. <Dixie Hammbradford WRAP CHECKER - Last Filed: 10/17/22 12:18> (3) Transaminitis: Code(s): R74.01 - Elevation of levels of liver transaminase levels <Dixie Hammbrafdord WRAP CHECKER - Last Filed: 10/17/22 12:18> Status: Acute <Dixie Hammbradford WRAP CHECKER - Last Filed: 10/17/22 12:18> Assessment and Plan: Overall downward trend since admission. Successful ERCP yesterday with common duct stone removed. <Dixie Hammbradford WRAP CHECKER - Last Filed: 10/17/22 12:18> (4) Cirrhosis: Code(s): K74.60 - Unspecified cirrhosis of liver <Dixie Perrywandy WRAP CHECKER - Last Filed: 10/17/22 12:18> Status: Acute <Dixie PerryOSCAR saba - Last Filed: 10/17/22 12:18> Assessment and Plan: I have discussed the patient's case and plan of care with Dr. Leonard. <Dixie PerryOSCAR saba - Last Filed: 10/17/22 12:18> Subjective Subjective Date/Time Seen: 10/17/22 09:52 <Dixie SigalaBrad PerryOSCAR saba - Last Filed: 10/17/22 12:18> Interval history: Patient s/p ERCP yesterday. Lipase checked last night and was 14,000. She is complaining of some upper abdominal pain today that has improved some with [place] this morning. Denies any nausea or vomiting. She reports poor appetite and has not eaten any of the breakfast that was given to her this morning. No other complaints at this time. <Dixie Castillo PerryOSCAR saba - Last Filed: 10/17/22 12:18> Review of Systems Review of Systems: All systems reviewed & are unremarkable except as noted in HPI and below <Dixie PerryOSCAR saba - Last Filed: 10/17/22 12:18> Exam Const: General: comfortable, no acute distress and alert <Dixie Chong OrlandoOSCAR saba - Last Filed: 10/17/22 12:18> Orientation/consciousness: patient oriented x3 <Dixie ZakiyaBrad OrlandoOSCAR saba - Last Filed: 10/17/22 12:18> GI: Inspection: non-distended and obesity <Dixie Chong OrlandoOSCAR saba - Last Filed: 10/17/22 12:18> GI Palp: Yes Soft to palpation, Yes Tenderness to palpation present (GI) (LUQ, epigastric, RUQ), No Guarding due to palpation present (GI) and No Rebound tenderness present <OSCAR Larios - Last Filed: 10/17/22 12:18> Auscultation: normal bowel sounds <OSCAR Larios - Last Filed: 10/17/22 12:18> Objective Data Vital Signs Vital Signs: Vital Signs - 24 hr 10/16/22 12:02 10/16/22 12:12 10/16/22 12:22 Temperature Pulse Rate 65 63 51 L Respiratory Rate 18 22 H 19 Blood Pressure 106/67 111/72 122/66 Pulse Oximetry 94 95 95 Oxygen Delivery Nasal Cannula Nasal Cannula Nasal Cannula Oxygen Flow Rate 2 2 2 10/16/22 12:32 10/16/22 12:42 10/16/22 13:10 Temperature Pulse Rate 48 L 49 L Respiratory Rate 16 18 Blood Pressure 131/83 128/66 Pulse Oximetry 97 100 Oxygen Delivery Nasal Cannula Nasal Cannula Room
[2022-10-17 11:55] LABS: Glucose Point of Care 161 mg/dl (65-105)
--- NOTE | 2022-10-17 12:55 | WPDGIPROGNO ---
Progress Note: A&P Assessment and Plan (1) Choledocholithiasis: Code(s): K80.50 - Calculus of bile duct without cholangitis or cholecystitis without obstruction Status: Acute Assessment and Plan: she came with sepsis/GNR and elevated liver enzymes probably biliary related finally yesterday had ERCP, removed stone after sphincterotomy and balloon sweep noted post ercp pancreatitis, agree only with liquid diet, medical management (2) Gram-negative bacteremia: Code(s): R78.81 - Bacteremia Status: Acute Assessment and Plan: on abx s/p ercp with removal of stone, probably had cholangitis surgery on board, interval 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 (3) Sepsis: Code(s): A41.9 - Sepsis, unspecified organism Status: Acute Assessment and Plan: resolved (4) Cirrhosis: Code(s): K74.60 - Unspecified cirrhosis of liver Status: Acute Assessment and Plan: unclear etiology, work up in progress (5) Pancreatitis: Code(s): K85.90 - Acute pancreatitis without necrosis or infection, unspecified Status: Acute Assessment and Plan: after ercp, monitor (6) Transaminitis: Code(s): R74.01 - Elevation of levels of liver transaminase levels Status: Acute (7) Altered mental status: Code(s): R41.82 - Altered mental status, unspecified Status: Acute Subjective Date/time seen: 10/17/22 12:55 Interval history: ercp yesterday with sphincterotomy and removal of stone from bile duct, also noted porcelain gallbladder using fluoroscopy. She developed upper abdominal pain, lipase high c/w post ercp pancreatitis Review of Systems Review of Systems: All systems reviewed & are unremarkable except as noted in HPI and below Exam Const: General: comfortable, no acute distress and alert HENMT: Face/Nose/Sinus: Normal nares present Other: dry mouth Eyes: Sclera: sclerae normal Neck: Neck: supple Resp: Auscultation: clear to auscultation bilaterally Cardio: Rate: regular rate GI: Inspection: non-distended and obesity GI Palp: Yes Soft to palpation, Yes Tenderness to palpation present (GI) (LUQ, epigastric, RUQ), No Guarding due to palpation present (GI) and No Rebound tenderness present Auscultation: normal bowel sounds Skin: General skin exam: normal color Neuro: Speech: normal speech Extrem: General: normal to inspection Psych: Affect: No Hostile affect present Objective Data Vital Signs Vital Signs: Vital Signs - 24 hr 10/16/22 13:10 10/16/22 13:58 10/16/22 14:07 Temperature 97.6 F Pulse Rate 48 L 58 L Respiratory Rate 16 Blood Pressure 153/80 H Pulse Oximetry 94 Oxygen Delivery Room Air Oxygen Flow Rate 10/16/22 16:00 10/16/22 16:00 10/16/22 16:00 Temperature Pulse Rate 58 L 58 L Respiratory Rate Blood Pressure Pulse Oximetry Oxygen Delivery Room Air Oxygen Flow Rate 10/16/22 16:30 10/16/22 16:00 10/16/22 17:54 Temperature 97.6 F Pulse Rate 49 L 62 Respiratory Rate 14 Blood Pressure 129/55 L Pulse Oximetry 95 Oxygen Delivery Room Air Oxygen Flow Rate 10/16/22 19:55 10/16/22 20:00 10/16/22 20:00 Temperature 97.4 F L Pulse Rate 57 L 65 65 Respiratory Rate 15 15 Blood Pressure 133/77 Pulse Oximetry 98 98 Oxygen Delivery Room Air Oxygen Flow Rate 10/16/22 21:56 10/16/22 22:00 10/17/22 00:00 Temperature 97.8 F Pulse Rate 56 L 60 53 L Respiratory Rate 16 Blood Pressure 117/98 H 127/64 Pulse Oximetry 92 98 Oxygen Delivery Room Air Oxygen Flow Rate 10/17/22 00:00 10/17/22 00:00 10/17/22 02:00 Temperature Pulse Rate 59 L 59 L 62 Respiratory Rate 16 Blood Pressure Pulse Oximetry 98 Oxygen Delivery Room Air Oxygen Flow Rate 10/17/22 04:00 10/17/22 04:00 10/17/22 04:00 Temperature 97 F L Pulse Rate 64 64 67 Respiratory Rate 16 16 Blood Pressure 1
--- NOTE | 2022-10-17 14:03 | PM.IMPN ---
Progress Note: A&P Assessment and Plan (1) Sepsis: Code(s): A41.9 - Sepsis, unspecified organism Status: Acute Assessment and Plan: 10/11: Sepsis present on admission with source likely intra-abdominal with cholecystitis versus ascending cholangitis versus choledocholithiasis, continue broad-spectrum antibiotics with vancomycin and aztreonam 10/12: Elevated LFTs continue to worsen, hepatitis panel negative, right upper quadrant ultrasound showed cholelithiasis, cirrhosis and a dilated common bile duct up to 7.8 mm, appreciate general surgery consultation for possible cholecystitis, may need cholecystostomy tube, Flagyl added due to worsening leukocytosis 10/13: Leukocytosis resolved on current antibiotics, continue vancomycin, aztreonam and Flagyl 10/14: Blood cx came back positive for klebsiella, sens to levaquin, will d/c vanc/aztreonam and start levaquin, cont flagyl, recheck blood cultures in 24h 10/15: MRCP showed 2 mm stone in the CBD, cholelithiasis, defer to GI for further care, ERCP scheduled for tomorrow, (ID pharm found that patient had previously tolerated cephalosporin, levaquin d/c in favor of rocephin) cont flagyl 10/16: ERCP performed with removal of 4mm dark stone and sludge. BCx positive for Klebsiella with repeat BCx NGTD. Continue Rocephin and Flagyl. Also showing porcelin GB. General surgery consulted. 10/17: Patient developed nausea overnight with Lipase at 14K consistent post-ERCP pancreatitis. WBC up for this reason. Continuecurrent IV abx. (2) Pancreatitis: Code(s): K85.90 - Acute pancreatitis without necrosis or infection, unspecified Status: Acute Assessment and Plan: Lipase 14K consistent post-ERCP pancreatitis. Diet adjusted. Follow lipase. (3) Choledocholithiasis: Code(s): K80.50 - Calculus of bile duct without cholangitis or cholecystitis without obstruction Status: Acute Assessment and Plan: ERCP performed 10/16 with removal of 4mm dark stone and sludge. Gen surgery following for possible cholecystectomy. (4) Elevated LFTs: Code(s): R79.89 - Other specified abnormal findings of blood chemistry Status: Acute Assessment and Plan: Suspect secondary to choledocholithiasis. Resolving. Continue to monitor (5) Lung infiltrate: Code(s): R91.8 - Other nonspecific abnormal finding of lung field Status: Acute Assessment and Plan: CT chest showing LLL airspace opacities. Consider PNA. Continue antibiotics as above. (6) SVT (supraventricular tachycardia): Code(s): I47.1 - Supraventricular tachycardia Status: Acute Assessment and Plan: Patient presents with tachycardia felt to be SVT in the 200s Likely triggered by sepsis and metabolic acidosis She underwent synchronized cardioversion in the ER. Echo showed an EF of 60-65% with grade 1 diastolic dysfunction no significant valvular abnormalities noted, no pulmonary hypertension Tele showing occasional bradycardia. Currently on metoprolol but dose decreased due to bradycardia. Cardiology consulted and appreciate theri input. Apnealink pending (7) Lactic acidosis: Code(s): E87.20 - Acidosis, unspecified Status: Acute Assessment and Plan: Lactic acid level elevated. Possibly related to SVT triggered by sepsis and metabolic acidosis. Lactic acidosis resolved (8) Cirrhosis: Code(s): K74.60 - Unspecified cirrhosis of liver Status: Acute Assessment and Plan: Cirrhosis noted by US but not seen by CT. No ascites. Probably fatty liver. PT/PTT normal. Hepatitis panel negative. LFTs elevated as above. Workup in progress. Apprecaite GI input. Plan PT/OT DVT prophylaxis with Lovenox GI prophylaxis with PPI Code status full code Subjective Date/time seen: 10/17/22 14:03 Interval history: 57yo healthy female here for altered mental status. Patient had nausea overnight but denies
[2022-10-17 16:28] LABS: Glucose Point of Care 117 mg/dl (65-105)
[2022-10-17 20:07] LABS: Glucose Point of Care 137 mg/dl (65-105)
--- NOTE | 2022-10-17 22:59 | PCRCNOTE ---
RT attempted to put flow cannula in pt's nose for sleep study. Pt started thrashing head around. RT told the pt to please hold still to which the pt replied I will punch you in the mouth. RT will retry sleep study on a different night when pt is calmed down.
[2022-10-18] VITALS (15 sets, daily range): BP systolic 132–154; BP diastolic 64–96; PULSE 72–89; RESP 16–20; TEMP 36.1–36.6; O2SAT 92–94
[2022-10-18 04:15] LABS: Basophils Absolute Auto 0.1 K/mm3 (0.0-0.1); Basophils Percent Auto 0.3 % (0.2-1.2); Eosinophils Percent Auto 0.1 % (0-4.4); Hematocrit 46.8 % (37.0-47.0); Hemoglobin 14.7 g/dL (12.0-15.0); Immature Granulocyte Absolute 0.23 K/mm3 (0.00-0.031); Immature Granulocyte Percent A 1.4 % (0-0.5); Lymphocytes Percent Auto 5.5 % (18.3-44.2); Mean Corpuscular HGB Conc 31.4 g/dl (32-36); Mean Corpuscular Hemoglobin 29.5 pg (26-34); Mean Corpuscular Volume 93.8 fl (80-100); Mean Platelet Volume 9.9 fl (7.4-10.4); Monocytes Absolute Auto 0.4 K/mm3 (0.1-0.6); Monocytes Percent Auto 2.6 % (2.6-8.5); Neutrophils Absolute Auto 14.7 K/mm3 (1.3-6.7); Neutrophils Percent Auto 90.1 % (45.5-73.1); Platelet Count Result 268 k/mm3 (150-375); Red Blood Count 4.99 M/mm3 (4.2-5.4); White Blood Count 16.3 K/mm3 (4.5-10.0)
[2022-10-18 04:25] LABS: Alanine Aminotransferase 132 U/L (6-35); Albumin Level 3.8 g/dL (3.5-5.1); Alkaline Phosphatase 161 U/L (38-126); Anion Gap 3 mmol/L (8-16); Aspartate Amino Transferase 52 U/L (14-36); Bilirubin,Total 0.8 mg/dL (0.2-1.3); Blood Urea Nitrogen 3 mg/dL (7-17); Calcium 8.5 mg/dL (8.4-10.2); Carbon Dioxide 31 mmol/L (22-30); Chloride 106 mmol/L (98-107); Estimated CRCL calculation 121 ml/min; Estimated Glomerular Filt Rate > 60; Glucose 123 mg/dL (65-110); Lipase 1394 U/L (23-300); Magnesium 2.1 mg/dL (1.6-2.3); Phosphorus 2.2 mg/dL (2.5-4.5); Sodium 140 mmol/L (137-145)
[2022-10-18] MEDS: metroNIDAZOLE 500 MG/ISO 100ML 500 MG/100 ML BAG 100 MG IVPB ×2 (06:09→13:46)
[2022-10-18 08:34] LABS: Glucose Point of Care 130 mg/dl (65-105)
--- NOTE | 2022-10-18 08:48 | PCPTNOTE ---
Attempted therapy session at 08:42, Pt was sleeping. After waking Pt, she would only respond with huh? and nu-uh (no). After attempting several times to have Pt either agree to therapy, roll off her side, or sit up, it was clear Pt just wanted to be left alone to sleep. Explained to Pt therapy will attempt to come back later to work with. Will attempt again if time allows.
--- NOTE | 2022-10-18 09:23 | PM.IMPN ---
Progress Note: A&P Assessment and Plan (1) Sepsis: Code(s): A41.9 - Sepsis, unspecified organism Status: Acute Assessment and Plan: Sepsis present on admission (10/11) with source likely intra-abdominal with probably ascending cholangitis from choledocholithiasis. She was started on broad-spectrum antibiotics with Flagyl, vancomycin and aztreonam. Leukocytosis resolved (higher now related tot he pancreatitis). BCx positive for klebsiella sensitive to Levaquin. Vanc/aztreonam stopped and started Levaquin (10/14). Flagyl continued. Repeat BCx NGTD. PharmID found that patient had previously tolerated cephalosporin so Levaquin changed to Rocephin (10/15). Sepsis symptoms waning. Monitor WBC. (2) Pancreatitis: Code(s): K85.90 - Acute pancreatitis without necrosis or infection, unspecified Status: Acute Assessment and Plan: Lipase 14K consistent post-ERCP pancreatitis. Abd pain better. Lipase down to 1400. Diet adjusted. Follow lipase. (3) Choledocholithiasis: Code(s): K80.50 - Calculus of bile duct without cholangitis or cholecystitis without obstruction Status: Acute Assessment and Plan: Patient with abdominal pain, increase in LFTs and sepsis. Hepatitis panel negative RUQ US: cholelithiasis, cirrhosis and a dilated common bile duct up to 7.8 mm Suspect sepsis related to retained CBD stone Appreciate general surgery and GI consultation MRCP showed 2 mm stone in the CBD, cholelithiasis ERCP 10/16 with removal of 4mm dark stone and sludge. Also showing porceline GB Gen surgery following for possible cholecystectomy. (4) Elevated LFTs: Code(s): R79.89 - Other specified abnormal findings of blood chemistry Status: Acute Assessment and Plan: Suspect secondary to choledocholithiasis and sepsis. Resolving. Continue to monitor (5) Lung infiltrate: Code(s): R91.8 - Other nonspecific abnormal finding of lung field Status: Acute Assessment and Plan: CT chest showing LLL airspace opacities. Consider PNA. Continue antibiotics as above. (6) SVT (supraventricular tachycardia): Code(s): I47.1 - Supraventricular tachycardia Status: Acute Assessment and Plan: Patient presents with tachycardia felt to be SVT in the 200s Likely triggered by sepsis and metabolic acidosis She underwent synchronized cardioversion in the ER. Echo showed an EF of 60-65% with grade 1 diastolic dysfunction no significant valvular disease, no pHTN Tele was showing occasional bradycardia but better now. Currently on metoprolol but dose decreased due to bradycardia. Cardiology consulted and appreciate their input. Unable to get Apnealink due to patient agitation (7) Lactic acidosis: Code(s): E87.20 - Acidosis, unspecified Status: Acute Assessment and Plan: Lactic acid level elevated. Related to sepsis and metabolic acidosis. Lactic acidosis resolved (8) Cirrhosis: Code(s): K74.60 - Unspecified cirrhosis of liver Status: Acute Assessment and Plan: Cirrhosis noted by US but not seen by CT. No ascites. Probably related to fatty liver. PT/PTT normal. Hepatitis panel negative. LFTs elevated as above. Workup in progress. Appreciate GI input. Plan Debility: PT/OT DVT prophylaxis with Lovenox Code status full code Subjective Date/time seen: 10/18/22 09:23 Interval history: 57yo healthy female here for altered mental status. Patient was combative when trying to obtain the apnea test. She feels 'fine'. Denies abdominal pain. Patient answers questions infrequently making history difficult to obtain. Review of Systems Review of Systems: ROS unobtainable: Yes unobtainable due to mental status Exam Narrative: AF 145/64 81 18 93% ra Gen - NARD lying almost flat in bed Chest - lungs clear to quiet respirations. Nml RR CV - RRR S1/S2. Tele showing no significant dysrhythmi
[2022-10-18] MEDS: POTASSIUM CHLORIDE 20 MEQ TABLET 40 MEQ PO (09:50)
[2022-10-18] MEDS: ACIDOPHILUS/BULGARICUS CHEWABLE TABLET 2 TABLET BY MOUTH (09:52)
[2022-10-18] MEDS: cefTRIAXone 2 GM in SODIUM CHLORIDE 0.9% IV 100 ML 200 ML IVPB (09:57)
[2022-10-18] MEDS: PANTOPRAZOLE SODIUM IV 40 MG VIAL IV PUSH (09:58)
[2022-10-18] MEDS: ENOXAPARIN 40 MG/0.4 ML SYRINGE SUB-Q (10:13)
[2022-10-18] MEDS: DICLOFENAC SODIUM 1% 100 GM GEL (*BKC) 1 APPLIC TOPICAL ×2 (10:14→20:34)
[2022-10-18] MEDS: FAMOTIDINE 20 MG TABLET PO (10:17)
[2022-10-18] MEDS: CHOLECALCIFEROL 1,000 UNITS TABLET 2000 UNITS PO (10:17)
[2022-10-18] MEDS: TOLNAFTATE 1% POWDER 45 GM BTL 1 APPLIC TOPICAL (10:18)
[2022-10-18] MEDS: POTASSIUM/PHOSPHORUS/SODIUM 1.5 GM PACKET 1 PACKET PO (11:10)
[2022-10-18] MEDS: POTASSIUM CHLORIDE 20 MEQ PACKET (FOR LIQUID) 40 MEQ PO (11:10)
[2022-10-18] MEDS: METOPROLOL TARTRATE 6.25 MG TABLET PO ×2 (11:10→20:34)
--- NOTE | 2022-10-18 11:15 | PM.PNGS ---
Progress Note: A&P Assessment and Plan (1) Choledocholithiasis: Code(s): K80.50 - Calculus of bile duct without cholangitis or cholecystitis without obstruction Status: Acute Assessment and Plan: worsening mental status, will d/w primary team, abd exam benign and labs improving, cont abx, may need perc cholecystostomy Subjective Subjective Date/Time Seen: 10/18/22 11:15 seems more lethargic today, no c/o Review of Systems Review of Systems: ROS unobtainable: Yes unobtainable due to mental status Exam Const: General: confusion, ill appearing, lethargic and obese Resp: Auscultation: diminished lung sounds Cardio: Rate: regular rate Rhythm: regular rhythm GI: GI Palp: No abdominal tenderness, Yes Soft to palpation, No Tenderness to palpation present (GI), No Guarding due to palpation present (GI) and No Rigid due to palpation Objective Data Vital Signs Vital Signs: Vital Signs - 24 hr 10/17/22 11:55 10/17/22 12:00 10/17/22 12:00 Temperature 36.3 C L Pulse Rate 69 63 Respiratory Rate 16 Blood Pressure 117/79 Pulse Oximetry 94 94 Oxygen Delivery Nasal Cannula Oxygen Flow Rate 2 10/17/22 14:00 10/17/22 16:00 10/17/22 16:00 Temperature 36.5 C Pulse Rate 67 64 62 Respiratory Rate 16 Blood Pressure 151/62 H Pulse Oximetry 92 Oxygen Delivery Oxygen Flow Rate 10/17/22 16:00 10/17/22 18:00 10/17/22 20:00 Temperature 36.3 C L Pulse Rate 67 67 Respiratory Rate 16 Blood Pressure 151/57 H Pulse Oximetry 94 95 Oxygen Delivery Nasal Cannula Oxygen Flow Rate 2 10/17/22 20:00 10/17/22 20:00 10/17/22 22:00 Temperature Pulse Rate 67 68 73 Respiratory Rate 16 Blood Pressure Pulse Oximetry 95 Oxygen Delivery Room Air Oxygen Flow Rate 10/17/22 23:43 10/18/22 00:00 10/18/22 00:00 Temperature 36.8 C Pulse Rate 72 73 Respiratory Rate 20 20 Blood Pressure 167/74 H Pulse Oximetry 99 Oxygen Delivery Room Air Oxygen Flow Rate 10/18/22 02:00 10/18/22 04:00 10/18/22 04:00 Temperature Pulse Rate 72 73 Respiratory Rate Blood Pressure Pulse Oximetry Oxygen Delivery Room Air Oxygen Flow Rate 10/18/22 04:00 10/18/22 06:00 10/18/22 07:41 Temperature 36.1 C L 36.6 C Pulse Rate 75 75 81 Respiratory Rate 16 18 Blood Pressure 154/72 H 145/64 H Pulse Oximetry 94 93 Oxygen Delivery Oxygen Flow Rate 10/18/22 07:44 10/18/22 08:00 10/18/22 10:00 Temperature Pulse Rate 74 84 Respiratory Rate Blood Pressure Pulse Oximetry Oxygen Delivery Room Air Oxygen Flow Rate Intake/Output Intake/Output: Intake & Output 10/15/22 10/16/22 10/17/22 10/18/22 23:59 23:59 23:59 23:59 Intake Total 1180 1290 500 200 Output Total 1275 800 Balance -95 490 500 200 Meds/Results Medications: Active Medications Generic Name Dose Route Start Last Admin Trade Name Freq PRN Reason Stop Dose Admin Acetaminophen 650 mg 10/16/22 18:57 Acetaminophen 325 Mg Tablet PO Q6H PRN Pain Rated 5 or Less Hydrocodone Bitart/Acetaminophen 1 tab 10/16/22 18:57 10/17/22 09:19 Hydrocodone/Acetaminophen (*Crx) 5-325 Mg Tablet PO 1 tab Q6H PRN Administration Pain Rated 6 or Greater Dextrose 12.5 gm 10/12/22 11:20 Dextrose 50% 25 Gm/50 Ml Syringe IV PUSH PRN PRN Hypoglycemia Protocol Diclofenac Sodium 1 applic 10/12/22 09:00 10/18/22 10:14 Diclofenac Sodium 1% 100 Gm Gel (*Bkc) TOPICAL 1 applic Q12HR GABBY Administration Enoxaparin Sodium 40 mg 10/12/22 09:00 10/18/22 10:13 Enoxaparin 40 Mg/0.4 Ml Syringe SUB-Q 40 mg DAILY GABBY Administration Famotidine 20 mg 10/12/22 09:00 10/18/22 10:17 Famotidine 20 Mg Tablet PO 20 mg DAILY GABBY Administration Gemfibrozil 600 mg 10/12/22 07:30 10/16/22 14:08 Gemfibrozil 600 Mg Tablet PO 600 mg 0730,1630 GABBY Administration Glucagon 1 mg 10/12/22 11:20
[2022-10-18 12:10] LABS: Glucose Point of Care 127 mg/dl (65-105)
--- NOTE | 2022-10-18 13:38 | PCPTNOTE ---
Attempted to see patient for PT, however patient was unable to stay awake long enough to give yes or no response or to participate in therapy.
--- NOTE | 2022-10-18 14:50 | WPDGIPROGNO ---
Progress Note: A&P Assessment and Plan (1) Choledocholithiasis: Code(s): K80.50 - Calculus of bile duct without cholangitis or cholecystitis without obstruction Status: Acute Assessment and Plan: she came with sepsis/GNR and elevated liver enzymes probably biliary related ERCP, removed stone after sphincterotomy and balloon sweep but then post ercp pancreatitis lipase is down, also normal bilirubin CL diet for now she has been lethargic sepsis and leukocytosis resolved after medical treatment, new leukocytosis probably from pancreatitis (2) Gram-negative bacteremia: Code(s): R78.81 - Bacteremia Status: Acute Assessment and Plan: on abx s/p ercp with removal of stone, probably had cholangitis surgery on board, interval cholecystectomy noted porcelain gb (3) Sepsis: Code(s): A41.9 - Sepsis, unspecified organism Status: Acute Assessment and Plan: treated (4) Cirrhosis: Code(s): K74.60 - Unspecified cirrhosis of liver Status: Acute Assessment and Plan: unclear etiology, work up in progress (5) Pancreatitis: Code(s): K85.90 - Acute pancreatitis without necrosis or infection, unspecified Status: Acute Assessment and Plan: after ercp, monitor (6) Transaminitis: Code(s): R74.01 - Elevation of levels of liver transaminase levels Status: Acute (7) Altered mental status: Code(s): R41.82 - Altered mental status, unspecified Status: Acute Subjective Date/time seen: 10/18/22 14:50 Interval history: sleeping but easily arousable, lying bed Review of Systems Review of Systems: All systems reviewed & are unremarkable except as noted in HPI and below Exam Const: General: comfortable and alert Other: sleeping but was easily arousable, flat affect HENMT: Face/Nose/Sinus: Normal nares present Other: dry mouth Eyes: Sclera: sclerae normal Neck: Neck: supple Resp: Auscultation: clear to auscultation bilaterally Cardio: Rate: regular rate GI: Inspection: non-distended and obesity GI Palp: Yes Soft to palpation, No Guarding due to palpation present (GI) and No Rebound tenderness present Auscultation: normal bowel sounds Skin: General skin exam: normal color Neuro: Speech: normal speech Other: sleepy Extrem: General: normal to inspection Psych: Affect: No Hostile affect present Objective Data Vital Signs Vital Signs: Vital Signs - 24 hr 10/17/22 16:00 10/17/22 16:00 10/17/22 16:00 Temperature 97.7 F Pulse Rate 64 62 Respiratory Rate 16 Blood Pressure 151/62 H Pulse Oximetry 92 94 Oxygen Delivery Nasal Cannula Oxygen Flow Rate 2 10/17/22 18:00 10/17/22 20:00 10/17/22 20:00 Temperature 97.4 F L Pulse Rate 67 67 67 Respiratory Rate 16 16 Blood Pressure 151/57 H Pulse Oximetry 95 95 Oxygen Delivery Room Air Oxygen Flow Rate 10/17/22 20:00 10/17/22 22:00 10/17/22 23:43 Temperature 98.3 F Pulse Rate 68 73 72 Respiratory Rate 20 Blood Pressure 167/74 H Pulse Oximetry 99 Oxygen Delivery Oxygen Flow Rate 10/18/22 00:00 10/18/22 00:00 10/18/22 02:00 Temperature Pulse Rate 73 72 Respiratory Rate 20 Blood Pressure Pulse Oximetry Oxygen Delivery Room Air Oxygen Flow Rate 10/18/22 04:00 10/18/22 04:00 10/18/22 04:00 Temperature 97 F L Pulse Rate 73 75 Respiratory Rate 16 Blood Pressure 154/72 H Pulse Oximetry 94 Oxygen Delivery Room Air Oxygen Flow Rate 10/18/22 06:00 10/18/22 07:41 10/18/22 07:44 Temperature 98 F Pulse Rate 75 81 Respiratory Rate 18 Blood Pressure 145/64 H Pulse Oximetry 93 Oxygen Delivery Room Air Oxygen Flow Rate 10/18/22 08:00 10/18/22 10:00 10/18/22 11:10 Temperature Pulse Rate 74 84 82 Respiratory Rate Blood Pressure Pulse Oximetry Oxygen Delivery Oxygen Flow Rate 10/18/22 12:10 10/18/22 12:00 Ronny
[2022-10-18 17:35] LABS: Glucose Point of Care 110 mg/dl (65-105)
[2022-10-18 21:20] LABS: Glucose Point of Care 108 mg/dl (65-105)
[2022-10-19] VITALS (12 sets, daily range): BP systolic 106–142; BP diastolic 43–83; PULSE 73–90; RESP 16–18; TEMP 36.8–37.2; O2SAT 92–93
[2022-10-19] MEDS: metroNIDAZOLE 500 MG/ISO 100ML 500 MG/100 ML BAG 100 MG IVPB ×3 (05:30→22:15)
[2022-10-19 06:21] LABS: Basophils Absolute Auto 0.1 K/mm3 (0.0-0.1); Basophils Percent Auto 0.5 % (0.2-1.2); Eosinophils Percent Auto 0.1 % (0-4.4); Hematocrit 44.3 % (37.0-47.0); Hemoglobin 13.9 g/dL (12.0-15.0); Immature Granulocyte Absolute 0.63 K/mm3 (0.00-0.031); Immature Granulocyte Percent A 3.3 % (0-0.5); Lymphocytes Absolute Auto 1.59 K/mm3 (0.9-3.2); Lymphocytes Percent Auto 8.4 % (18.3-44.2); Mean Corpuscular HGB Conc 31.4 g/dl (32-36); Mean Corpuscular Hemoglobin 28.6 pg (26-34); Mean Corpuscular Volume 91.2 fl (80-100); Mean Platelet Volume 9.9 fl (7.4-10.4); Monocytes Absolute Auto 0.7 K/mm3 (0.1-0.6); Monocytes Percent Auto 3.8 % (2.6-8.5); Neutrophils Absolute Auto 15.9 K/mm3 (1.3-6.7); Neutrophils Percent Auto 83.9 % (45.5-73.1); Nucleated Red Blood Cells Perc 0.1 % (0.0-0.2); Platelet Count Result 328 k/mm3 (150-375); Red Blood Count 4.86 M/mm3 (4.2-5.4); Red Cell Distribution Width 15.1 % (11.5-14.5)
[2022-10-19 06:29] LABS: Alanine Aminotransferase 78 U/L (6-35); Albumin Level 3.4 g/dL (3.5-5.1); Alkaline Phosphatase 142 U/L (38-126); Anion Gap 6 mmol/L (8-16); Aspartate Amino Transferase 30 U/L (14-36); Bilirubin,Total 0.8 mg/dL (0.2-1.3); Blood Urea Nitrogen 6 mg/dL (7-17); Calcium 8.2 mg/dL (8.4-10.2); Carbon Dioxide 31 mmol/L (22-30); Chloride 111 mmol/L (98-107); Estimated CRCL calculation 120 ml/min; Estimated Glomerular Filt Rate > 60; Glucose 125 mg/dL (65-110); Magnesium 2.2 mg/dL (1.6-2.3); Potassium 3.1 mmol/L (3.4-5.0); Sodium 148 mmol/L (137-145)
[2022-10-19 08:03] LABS: Glucose Point of Care 121 mg/dl (65-105)
[2022-10-19] MEDS: POTASSIUM CHLORIDE 20 MEQ TABLET 40 MEQ PO (08:04)
[2022-10-19] MEDS: cefTRIAXone 2 GM in SODIUM CHLORIDE 0.9% IV 100 ML 200 ML IVPB (08:06)
[2022-10-19] MEDS: ENOXAPARIN 40 MG/0.4 ML SYRINGE SUB-Q (08:07)
[2022-10-19] MEDS: CHOLECALCIFEROL 1,000 UNITS TABLET 2000 UNITS PO (08:08)
[2022-10-19] MEDS: METOPROLOL TARTRATE 6.25 MG TABLET PO ×2 (08:08→22:15)
[2022-10-19] MEDS: POTASSIUM PHOS/SODIUM PHOS 250 MG TABLET PO ×2 (08:10→16:37)
[2022-10-19] MEDS: ACIDOPHILUS/BULGARICUS CHEWABLE TABLET 2 TABLET BY MOUTH (08:10)
[2022-10-19] MEDS: FAMOTIDINE 20 MG TABLET PO (08:10)
[2022-10-19] MEDS: THERAPEUTIC MULTIVITAMINS/MINERALS TAB (*BKC) 1 TABLET PO (08:10)
[2022-10-19] MEDS: VITAMIN B COMPLEX CAPSULE 1 CAP PO (08:10)
[2022-10-19] MEDS: PANTOPRAZOLE SODIUM IV 40 MG VIAL IV PUSH (08:11)
[2022-10-19] MEDS: TOLNAFTATE 1% POWDER 45 GM BTL 1 APPLIC TOPICAL ×2 (08:13→22:15)
[2022-10-19] MEDS: DICLOFENAC SODIUM 1% 100 GM GEL (*BKC) 1 APPLIC TOPICAL ×2 (08:26→22:14)
[2022-10-19 13:07] LABS: Glucose Point of Care 136 mg/dl (65-105)
[2022-10-19] MEDS: LIDOCAINE 5% PATCH 1 PATCH TRANSDERM (13:07)
--- NOTE | 2022-10-19 15:29 | PM.PNGS ---
Progress Note: A&P Assessment and Plan (1) Pancreatitis: Code(s): K85.90 - Acute pancreatitis without necrosis or infection, unspecified Status: Acute Assessment and Plan: Her blood cell count is 19,000 today. Clinically her abdomen is fairly benign. Continue non operative management of her gallbladder at this time. If she does develop acute cholecystitis I would agree that decompression with a cholecystostomy tube would be the best course of action. (2) Choledocholithiasis: Code(s): K80.50 - Calculus of bile duct without cholangitis or cholecystitis without obstruction Status: Acute Assessment and Plan: Status post ERCP and removal of common bile duct stone. Unfortunately she develop post ERCP pancreatitis. Continue supportive management. Subjective Subjective Date/Time Seen: 10/19/22 15:29 Interval history: Patient seems to be a bit more awake today. She does follow commands but more less as a blank stare and is not interested in talking at all. She does not examine her abdomen which was nontender. Exam Narrative: Abdomen is soft and obese. No tenderness to palpation right upper quadrant. No epigastric tenderness. Objective Data Vital Signs Vital Signs: Vital Signs - 24 hr 10/18/22 16:00 10/18/22 20:26 10/18/22 20:34 Temperature 36.6 C Pulse Rate 80 89 82 Respiratory Rate 20 Blood Pressure 139/96 H Pulse Oximetry 92 Oxygen Delivery 10/18/22 20:00 10/18/22 20:00 10/19/22 04:53 Temperature 36.8 C Pulse Rate 82 82 86 Respiratory Rate 20 18 Blood Pressure 142/64 H Pulse Oximetry 92 92 Oxygen Delivery Room Air 10/19/22 00:00 10/19/22 04:00 10/19/22 08:08 Temperature Pulse Rate 80 77 90 Respiratory Rate Blood Pressure Pulse Oximetry Oxygen Delivery 10/19/22 08:00 10/19/22 08:11 10/19/22 11:41 Temperature Pulse Rate 87 86 Respiratory Rate Blood Pressure Pulse Oximetry Oxygen Delivery Room Air 10/19/22 14:46 Temperature Pulse Rate 84 Respiratory Rate Blood Pressure Pulse Oximetry Oxygen Delivery Intake/Output Intake/Output: Intake & Output 10/16/22 10/17/22 10/18/22 10/19/22 23:59 23:59 23:59 23:59 Intake Total 1290 500 300 340 Output Total 800 Balance 490 500 300 340 Meds/Results Medications: Active Medications Generic Name Dose Route Start Last Admin Trade Name Freq PRN Reason Stop Dose Admin Acetaminophen 650 mg 10/16/22 18:57 Acetaminophen 325 Mg Tablet PO Q6H PRN Pain Rated 5 or Less Dextrose 12.5 gm 10/12/22 11:20 Dextrose 50% 25 Gm/50 Ml Syringe IV PUSH PRN PRN Hypoglycemia Protocol Diclofenac Sodium 1 applic 10/12/22 09:00 10/19/22 08:26 Diclofenac Sodium 1% 100 Gm Gel (*Bk) TOPICAL 1 applic Q12HR GABBY Administration Enoxaparin Sodium 40 mg 10/12/22 09:00 10/19/22 08:07 Enoxaparin 40 Mg/0.4 Ml Syringe SUB-Q 40 mg DAILY GABBY Administration Famotidine 20 mg 10/12/22 09:00 10/19/22 08:10 Famotidine 20 Mg Tablet PO 20 mg DAILY GABBY Administration Gemfibrozil 600 mg 10/12/22 07:30 10/16/22 14:08 Gemfibrozil 600 Mg Tablet PO 600 mg 0730,1630 GABBY Administration Glucagon 1 mg 10/12/22 11:20 Glucagon For Inj 1 Mg Vial IM PRN PRN Hypoglycemia Protocol Glucose 15 gm 10/12/22 11:20 Glucose Oral Gel 15 Gm Of Glucse In 37.5 Gm Tube PO PRN PRN Hypoglycemia Protocol Dextrose 1,000 mls @ 100 mls/hr 10/12/22 11:20 Dextrose 5% 1,000 Ml IVPB PRN PRN Hypoglycemia Protocol Ceftriaxone Sodium 2 gm/ 100 mls @ 200 mls/hr 10/15/22 09:00 10/19/22 08:06 Sodium Chloride IVPB 200 mls/hr DAILY GABBY Administration Metronidazole 500 mg in 100 mls @ 100 mls/hr 10/14/22 22:00 10/19/22 14:05 Flagyl 500 Mg/Iso Soln 100 Ml IVPB 100 mls/hr Q8HR GABBY Administration Insulin Aspart 2 - 5 units 10/12/22 12:00 02
--- NOTE | 2022-10-19 17:08 | P.PNIM_ITS ---
Progress Note: A&P Assessment and Plan (1) Sepsis: Code(s): A41.9 - Sepsis, unspecified organism Status: Acute Assessment and Plan: Sepsis present on admission (10/11) * source likely intra-abdominal with probably ascending cholangitis from choledocholithiasis. * started on broad-spectrum antibiotics with Flagyl, vancomycin and aztreonam. * BCx positive for klebsiella sensitive to Levaquin. Vanc/aztreonam stopped and started Levaquin (10/14). * Repeat BCx NGTD. Patient previously tolerated cephalosporin so Levaquin changed to Rocephin (10/15). * Sepsis symptoms waning. * Leukocytosis resolved initially but higher now related to the pancreatitis? * Continue Flagyl and Rocephin for now. (2) Pancreatitis: Code(s): K85.90 - Acute pancreatitis without necrosis or infection, unspecified Status: Acute Assessment and Plan: Lipase 14K consistent post-ERCP pancreatitis. Abd pain better. Lipase down to 1400. WBC higher but no fevers. Diet adjusted. Follow lipase. (3) Choledocholithiasis: Code(s): K80.50 - Calculus of bile duct without cholangitis or cholecystitis without obstruction Status: Acute Assessment and Plan: Patient with abdominal pain, increase in LFTs and sepsis. * Hepatitis panel negative * RUQ US: cholelithiasis, cirrhosis and a dilated common bile duct up to 7.8 mm * Suspect sepsis related to retained CBD stone * Appreciate general surgery and GI consultation * MRCP showed 2 mm stone in the CBD, cholelithiasis * ERCP 10/16 with removal of 4mm dark stone and sludge. Also showing porceline GB * Gen surgery following for possible cholecystectomy. (4) Elevated LFTs: Code(s): R79.89 - Other specified abnormal findings of blood chemistry Status: Acute Assessment and Plan: Suspect secondary to choledocholithiasis and sepsis. AST normal and ALT trending down. Resolving. Continue to monitor (5) Lung infiltrate: Code(s): R91.8 - Other nonspecific abnormal finding of lung field Status: Acute Assessment and Plan: CT chest showing LLL airspace opacities. Consider PNA. Continue antibiotics as above. (6) SVT (supraventricular tachycardia): Code(s): I47.1 - Supraventricular tachycardia Status: Acute Assessment and Plan: Patient presents with tachycardia felt to be SVT in the 200s * Likely triggered by sepsis and metabolic acidosis * She underwent synchronized cardioversion in the ER. * Echo showed an EF of 60-65% with grade 1 diastolic dysfunction no significant valvular disease, no pHTN * Tele was showing occasional bradycardia but better now. * Currently on metoprolol but dose decreased due to bradycardia. * Cardiology consulted and appreciate their input. * Unable to get Apnealink due to patient agitation (7) Lactic acidosis: Code(s): E87.20 - Acidosis, unspecified Status: Acute Assessment and Plan: Lactic acid level was elevated. Related to sepsis and metabolic acidosis. Lactic acidosis resolved (8) Cirrhosis: Code(s): K74.60 - Unspecified cirrhosis of liver Status: Acute Assessment and Plan: Cirrhosis noted by US but not seen by CT. No ascites. Probably related to fatty liver. PT/PTT normal. Hepatitis panel negative. LFTs elevated as above. Workup in progress. Appreciate GI input. Plan Debility: PT/OT DVT prophylaxis with Lovenox Code status full code Subjective Date/time seen: 10/19/22 17:08 Interval histo
--- NOTE | 2022-10-19 17:08 | PM.IMPN ---
Progress Note: A&P Assessment and Plan (1) Sepsis: Code(s): A41.9 - Sepsis, unspecified organism Status: Acute Assessment and Plan: Sepsis present on admission (10/11) source likely intra-abdominal with probably ascending cholangitis from choledocholithiasis. started on broad-spectrum antibiotics with Flagyl, vancomycin and aztreonam. BCx positive for klebsiella sensitive to Levaquin. Vanc/aztreonam stopped and started Levaquin (10/14). Repeat BCx NGTD. Patient previously tolerated cephalosporin so Levaquin changed to Rocephin (10/15). Sepsis symptoms waning. Leukocytosis resolved initially but higher now related to the pancreatitis? Continue Flagyl and Rocephin for now. (2) Pancreatitis: Code(s): K85.90 - Acute pancreatitis without necrosis or infection, unspecified Status: Acute Assessment and Plan: Lipase 14K consistent post-ERCP pancreatitis. Abd pain better. Lipase down to 1400. WBC higher but no fevers. Diet adjusted. Follow lipase. (3) Choledocholithiasis: Code(s): K80.50 - Calculus of bile duct without cholangitis or cholecystitis without obstruction Status: Acute Assessment and Plan: Patient with abdominal pain, increase in LFTs and sepsis. Hepatitis panel negative RUQ US: cholelithiasis, cirrhosis and a dilated common bile duct up to 7.8 mm Suspect sepsis related to retained CBD stone Appreciate general surgery and GI consultation MRCP showed 2 mm stone in the CBD, cholelithiasis ERCP 10/16 with removal of 4mm dark stone and sludge. Also showing porceline GB Gen surgery following for possible cholecystectomy. (4) Elevated LFTs: Code(s): R79.89 - Other specified abnormal findings of blood chemistry Status: Acute Assessment and Plan: Suspect secondary to choledocholithiasis and sepsis. AST normal and ALT trending down. Resolving. Continue to monitor (5) Lung infiltrate: Code(s): R91.8 - Other nonspecific abnormal finding of lung field Status: Acute Assessment and Plan: CT chest showing LLL airspace opacities. Consider PNA. Continue antibiotics as above. (6) SVT (supraventricular tachycardia): Code(s): I47.1 - Supraventricular tachycardia Status: Acute Assessment and Plan: Patient presents with tachycardia felt to be SVT in the 200s Likely triggered by sepsis and metabolic acidosis She underwent synchronized cardioversion in the ER. Echo showed an EF of 60-65% with grade 1 diastolic dysfunction no significant valvular disease, no pHTN Tele was showing occasional bradycardia but better now. Currently on metoprolol but dose decreased due to bradycardia. Cardiology consulted and appreciate their input. Unable to get Apnealink due to patient agitation (7) Lactic acidosis: Code(s): E87.20 - Acidosis, unspecified Status: Acute Assessment and Plan: Lactic acid level was elevated. Related to sepsis and metabolic acidosis. Lactic acidosis resolved (8) Cirrhosis: Code(s): K74.60 - Unspecified cirrhosis of liver Status: Acute Assessment and Plan: Cirrhosis noted by US but not seen by CT. No ascites. Probably related to fatty liver. PT/PTT normal. Hepatitis panel negative. LFTs elevated as above. Workup in progress. Appreciate GI input. Plan Debility: PT/OT DVT prophylaxis with Lovenox Code status full code Subjective Date/time seen: 10/19/22 17:08 Interval history: 57yo healthy female here for altered mental status. Patient is awake and alert but refusing to answer questions. Review of Systems Review of Systems: ROS unobtainable: Yes unobtainable due to mental status Exam Narrative: AF 142/64 84 18 92% ra Gen - NARD lying almost flat in bed Chest - lungs clear to quiet respirations. Nml RR CV - RRR S1/S2 Abd - soft. NT/ND, +BS Ext - No pedal edema Psych - eyes open, turns to voice. smiles a
[2022-10-19 18:40] LABS: Glucose Point of Care 105 mg/dl (65-105)
[2022-10-19] MEDS: ONDANSETRON INJ 4 MG/2 ML VIAL IV PUSH (22:14)
[2022-10-20] VITALS (9 sets, daily range): BP systolic 106–120; BP diastolic 43–68; PULSE 75–93; RESP 12–20; TEMP 36.6–37.1; O2SAT 90–94
[2022-10-20 03:28] LABS: Glucose Point of Care 112 mg/dl (65-105)
[2022-10-20] MEDS: metroNIDAZOLE 500 MG/ISO 100ML 500 MG/100 ML BAG 100 MG IVPB ×3 (05:58→21:21)
[2022-10-20 06:13] LABS: Basophils Absolute Auto 0.1 K/mm3 (0.0-0.1); Basophils Percent Auto 0.6 % (0.2-1.2); Eosinophils Percent Auto 0.2 % (0-4.4); Hematocrit 43.9 % (37.0-47.0); Hemoglobin 13.5 g/dL (12.0-15.0); Immature Granulocyte Percent A 1.2 % (0-0.5); Lymphocytes Absolute Auto 1.62 K/mm3 (0.9-3.2); Mean Corpuscular HGB Conc 30.8 g/dl (32-36); Mean Corpuscular Hemoglobin 28.4 pg (26-34); Mean Corpuscular Volume 92.4 fl (80-100); Mean Platelet Volume 10.1 fl (7.4-10.4); Monocytes Absolute Auto 0.7 K/mm3 (0.1-0.6); Monocytes Percent Auto 4.4 % (2.6-8.5); Neutrophils Absolute Auto 13.6 K/mm3 (1.3-6.7); Neutrophils Percent Auto 83.6 % (45.5-73.1); Nucleated Red Blood Cells Perc 0.1 % (0.0-0.2); Platelet Count Result 341 k/mm3 (150-375); Red Blood Count 4.75 M/mm3 (4.2-5.4); Red Cell Distribution Width 15.2 % (11.5-14.5); White Blood Count 16.3 K/mm3 (4.5-10.0)
--- NOTE | 2022-10-20 06:20 | PC.NURSE ---
Pt initially nonverbal with this nurse. Rolls over to side and leads come off frequently. Leg over side rail- bed alarm goes off . Turned on [employer] videos, pt turned to watch, became more engaged- increased use or words, short sentences. Incontinent of brown stool several times, pt got to edge of bed , ambulated with walker to bathroom x2 during this shift. [place] of liquid stool to the bathroom. Voided. Tolerated po liquid. Pt likes cold water with ice and diet sprite. Bed alarm on for safety.
[2022-10-20 06:37] LABS: Alanine Aminotransferase 53 U/L (6-35); Albumin Level 3.4 g/dL (3.5-5.1); Alkaline Phosphatase 137 U/L (38-126); Anion Gap 5 mmol/L (8-16); Aspartate Amino Transferase 28 U/L (14-36); Bilirubin,Total 0.8 mg/dL (0.2-1.3); Blood Urea Nitrogen 7 mg/dL (7-17); Carbon Dioxide 30 mmol/L (22-30); Chloride 108 mmol/L (98-107); Estimated CRCL calculation 102 ml/min; Estimated Glomerular Filt Rate > 60; Glucose 124 mg/dL (65-110); Potassium 2.8 mmol/L (3.4-5.0); Sodium 143 mmol/L (137-145)
--- NOTE | 2022-10-20 06:59 | PC.NURSE ---
Critical result K 2.[address] Montelongo received order for K 40 rider and check mg level Entered order --called lab to check if can add on mg
[2022-10-20 07:04] LABS: Magnesium 2.3 mg/dL (1.6-2.3)
[2022-10-20 07:57] LABS: Glucose Point of Care 104 mg/dl (65-105)
[2022-10-20] MEDS: POTASSIUM CHLORIDE INJ 40 MEQ in SODIUM CHLORIDE 0.9% IV 500 ML 130 MEQ IVPB ×2 (08:04→19:00)
[2022-10-20] MEDS: ACIDOPHILUS/BULGARICUS CHEWABLE TABLET 2 TABLET BY MOUTH (08:07)
[2022-10-20] MEDS: THERAPEUTIC MULTIVITAMINS/MINERALS TAB (*BKC) 1 TABLET PO (08:08)
[2022-10-20] MEDS: PANTOPRAZOLE SODIUM IV 40 MG VIAL IV PUSH (08:08)
[2022-10-20] MEDS: METOPROLOL TARTRATE 6.25 MG TABLET PO ×2 (08:08→21:21)
[2022-10-20] MEDS: LIDOCAINE 5% PATCH 1 PATCH TRANSDERM (08:08)
[2022-10-20] MEDS: CHOLECALCIFEROL 1,000 UNITS TABLET 2000 UNITS PO (08:08)
[2022-10-20] MEDS: ENOXAPARIN 40 MG/0.4 ML SYRINGE SUB-Q (08:09)
[2022-10-20] MEDS: DICLOFENAC SODIUM 1% 100 GM GEL (*BKC) 1 APPLIC TOPICAL ×2 (08:09→21:16)
[2022-10-20] MEDS: TOLNAFTATE 1% POWDER 45 GM BTL 1 APPLIC TOPICAL ×2 (08:10→21:16)
[2022-10-20] MEDS: FAMOTIDINE 20 MG TABLET PO (08:10)
[2022-10-20] MEDS: VITAMIN B COMPLEX CAPSULE 1 CAP PO (08:11)
[2022-10-20] MEDS: cefTRIAXone 2 GM in SODIUM CHLORIDE 0.9% IV 100 ML 200 ML IVPB (08:41)
--- NOTE | 2022-10-20 08:45 | PM.PNGS ---
Progress Note: A&P Assessment and Plan (1) Pancreatitis: Code(s): K85.90 - Acute pancreatitis without necrosis or infection, unspecified Status: Acute Assessment and Plan: Acute pancreatitis after ERCP seems to be resolving. Her lipase is trending down. Clinically her abdominal exam is improving and she has minimal tenderness now. (2) Choledocholithiasis: Code(s): K80.50 - Calculus of bile duct without cholangitis or cholecystitis without obstruction Status: Acute Assessment and Plan: Common bile duct stone extracted with the ERCP. Did not have acute cholecystitis but did have ascending cholangitis. At this point will continue non operative management. After she has medically optimize there may be a role for an interval laparoscopic cholecystectomy. Will continue to follow. Subjective Subjective Date/Time Seen: 10/20/22 08:45 Interval history: Patient is stable without acute changes. Her mental status is actually better today and she is more interactive. He answers my questions today and even smiled. She was tolerating her clear liquid diet without difficulty and denied having any abdominal pain. Exam Narrative: The abdomen is soft and nondistended. Palpation of the right upper quadrant epigastric region elicits very minimal tenderness. The exam is relatively benign. Objective Data Vital Signs Vital Signs: Vital Signs - 24 hr 10/19/22 11:41 10/19/22 14:46 10/19/22 16:00 Temperature Pulse Rate 86 84 83 Respiratory Rate Blood Pressure Pulse Oximetry 10/19/22 18:59 10/19/22 22:15 10/19/22 22:00 Temperature 37.2 C 37.0 C Pulse Rate 85 86 73 Respiratory Rate 18 16 Blood Pressure 106/43 L 132/83 Pulse Oximetry 93 93 10/19/22 20:55 10/20/22 00:00 10/20/22 06:00 Temperature 36.6 C Pulse Rate 82 83 93 Respiratory Rate 12 Blood Pressure 120/68 Pulse Oximetry 90 10/20/22 04:00 10/20/22 08:08 Temperature Pulse Rate 92 85 Respiratory Rate Blood Pressure Pulse Oximetry Intake/Output Intake/Output: Intake & Output 10/17/22 10/18/22 10/19/22 10/20/22 23:59 23:59 23:59 23:59 Intake Total 500 300 640 100 Balance 500 300 640 100 Meds/Results Medications: Active Medications Generic Name Dose Route Start Last Admin Trade Name Freq PRN Reason Stop Dose Admin Acetaminophen 650 mg 10/16/22 18:57 Acetaminophen 325 Mg Tablet PO Q6H PRN Pain Rated 5 or Less Dextrose 12.5 gm 10/12/22 11:20 Dextrose 50% 25 Gm/50 Ml Syringe IV PUSH PRN PRN Hypoglycemia Protocol Diclofenac Sodium 1 applic 10/12/22 09:00 10/20/22 08:09 Diclofenac Sodium 1% 100 Gm Gel (*Bkc) TOPICAL 1 applic Q12HR GABBY Administration Enoxaparin Sodium 40 mg 10/12/22 09:00 10/20/22 08:09 Enoxaparin 40 Mg/0.4 Ml Syringe SUB-Q 40 mg DAILY GABBY Administration Famotidine 20 mg 10/12/22 09:00 10/20/22 08:10 Famotidine 20 Mg Tablet PO 20 mg DAILY GABBY Administration Gemfibrozil 600 mg 10/12/22 07:30 10/16/22 14:08 Gemfibrozil 600 Mg Tablet PO 600 mg 0730,1630 GABBY Administration Glucagon 1 mg 10/12/22 11:20 Glucagon For Inj 1 Mg Vial IM PRN PRN Hypoglycemia Protocol Glucose 15 gm 10/12/22 11:20 Glucose Oral Gel 15 Gm Of Glucse In 37.5 Gm Tube PO PRN PRN Hypoglycemia Protocol Dextrose 1,000 mls @ 100 mls/hr 10/12/22 11:20 Dextrose 5% 1,000 Ml IVPB PRN PRN Hypoglycemia Protocol Ceftriaxone Sodium 2 gm/ 100 mls @ 200 mls/hr 10/15/22 09:00 10/20/22 08:41 Sodium Chloride IVPB 200 mls/hr DAILY GABBY Administration Metronidazole 500 mg in 100 mls @ 100 mls/hr 10/14/22 22:00 10/20/22 05:58 Flagyl 500 Mg/Iso Soln 100 Ml IVPB 100 mls/hr Q8HR GABBY Administration Potassium Chloride 40 meq/ 520 mls @ 130 mls/hr 10/20/22 06:49 10/20/22 08:04 Sodium Chloride IVPB 10/20/22 10:48 130 mls/hr ONCE
--- NOTE | 2022-10-20 11:25 | P.PNIM_ITS ---
Progress Note: A&P Assessment and Plan (1) Sepsis: Code(s): A41.9 - Sepsis, unspecified organism Status: Acute Assessment and Plan: Sepsis present on admission (10/11) * source likely intra-abdominal with probably ascending cholangitis from choledocholithiasis. * started on broad-spectrum antibiotics with Flagyl, vancomycin and aztreonam. * BCx positive for klebsiella sensitive to Levaquin. Vanc/aztreonam stopped and started Levaquin (10/14). * Repeat BCx NGTD. Patient previously tolerated cephalosporin so Levaquin changed to Rocephin (10/15). * Sepsis symptoms resolved * Leukocytosis resolved initially but higher due to pancreatitis; WBC trending down now * Continue Flagyl and Rocephin (Abx Day 9) (2) Pancreatitis: Code(s): K85.90 - Acute pancreatitis without necrosis or infection, unspecified Status: Acute Assessment and Plan: Lipase 14K consistent post-ERCP pancreatitis. Abd pain better. Lipase down to 1400; today's value pending. WBC better today. Diet to be advanced. Follow lipase (3) Choledocholithiasis: Code(s): K80.50 - Calculus of bile duct without cholangitis or cholecystitis without obstruction Status: Acute Assessment and Plan: Patient with abdominal pain, increase in LFTs and sepsis. * Hepatitis panel negative * RUQ US: cholelithiasis, cirrhosis and a dilated common bile duct up to 7.8 mm * Suspect sepsis related to retained CBD stone * Appreciate general surgery and GI consultation * MRCP showed 2 mm stone in the CBD, cholelithiasis * ERCP 10/16 with removal of 4mm dark stone and sludge. Also showing porceline GB * Gen surgery following for possible cholecystectomy vs watchful waiting. (4) Elevated LFTs: Code(s): R79.89 - Other specified abnormal findings of blood chemistry Status: Acute Assessment and Plan: Suspect secondary to choledocholithiasis and sepsis. AST normal and ALT trending down. Resolving. (5) Lung infiltrate: Code(s): R91.8 - Other nonspecific abnormal finding of lung field Status: Acute Assessment and Plan: CT chest showing LLL airspace opacities. Consider PNA. Continue antibiotics as above. (6) SVT (supraventricular tachycardia): Code(s): I47.1 - Supraventricular tachycardia Status: Acute Assessment and Plan: Patient presents with tachycardia felt to be SVT in the 200s * Likely triggered by sepsis and metabolic acidosis * She underwent synchronized cardioversion in the ER. * Echo showed an EF of 60-65% with grade 1 diastolic dysfunction no significant valvular disease, no pHTN * Tele was showing occasional bradycardia but better now. * Currently on metoprolol but dose decreased due to bradycardia. * Cardiology consulted and appreciate their input. * Unable to get Apnealink due to patient agitation * okay to stop tele (7) Lactic acidosis: Code(s): E87.20 - Acidosis, unspecified Status: Acute Assessment and Plan: Lactic acid level was elevated. Related to sepsis and metabolic acidosis. Lactic acidosis resolved (8) Cirrhosis: Code(s): K74.60 - Unspecified cirrhosis of liver Status: Acute Assessment and Plan: Cirrhosis noted by US but not seen by CT. No ascites. Probably related to fatty liver. PT/PTT normal. Hepatitis panel negative. LFTs elevated as above. Workup in progress. Appreciate GI input. (9) Hypokalemia: Code(s): E87.6 - Hypokalemia Status: Acute Assessment and Plan:
--- NOTE | 2022-10-20 11:25 | PM.IMPN ---
Progress Note: A&P Assessment and Plan (1) Sepsis: Code(s): A41.9 - Sepsis, unspecified organism Status: Acute Assessment and Plan: Sepsis present on admission (10/11) source likely intra-abdominal with probably ascending cholangitis from choledocholithiasis. started on broad-spectrum antibiotics with Flagyl, vancomycin and aztreonam. BCx positive for klebsiella sensitive to Levaquin. Vanc/aztreonam stopped and started Levaquin (10/14). Repeat BCx NGTD. Patient previously tolerated cephalosporin so Levaquin changed to Rocephin (10/15). Sepsis symptoms resolved Leukocytosis resolved initially but higher due to pancreatitis; WBC trending down now Continue Flagyl and Rocephin (Abx Day 9) (2) Pancreatitis: Code(s): K85.90 - Acute pancreatitis without necrosis or infection, unspecified Status: Acute Assessment and Plan: Lipase 14K consistent post-ERCP pancreatitis. Abd pain better. Lipase down to 1400; today's value pending. WBC better today. Diet to be advanced. Follow lipase (3) Choledocholithiasis: Code(s): K80.50 - Calculus of bile duct without cholangitis or cholecystitis without obstruction Status: Acute Assessment and Plan: Patient with abdominal pain, increase in LFTs and sepsis. Hepatitis panel negative RUQ US: cholelithiasis, cirrhosis and a dilated common bile duct up to 7.8 mm Suspect sepsis related to retained CBD stone Appreciate general surgery and GI consultation MRCP showed 2 mm stone in the CBD, cholelithiasis ERCP 10/16 with removal of 4mm dark stone and sludge. Also showing porceline GB Gen surgery following for possible cholecystectomy vs watchful waiting. (4) Elevated LFTs: Code(s): R79.89 - Other specified abnormal findings of blood chemistry Status: Acute Assessment and Plan: Suspect secondary to choledocholithiasis and sepsis. AST normal and ALT trending down. Resolving. (5) Lung infiltrate: Code(s): R91.8 - Other nonspecific abnormal finding of lung field Status: Acute Assessment and Plan: CT chest showing LLL airspace opacities. Consider PNA. Continue antibiotics as above. (6) SVT (supraventricular tachycardia): Code(s): I47.1 - Supraventricular tachycardia Status: Acute Assessment and Plan: Patient presents with tachycardia felt to be SVT in the 200s Likely triggered by sepsis and metabolic acidosis She underwent synchronized cardioversion in the ER. Echo showed an EF of 60-65% with grade 1 diastolic dysfunction no significant valvular disease, no pHTN Tele was showing occasional bradycardia but better now. Currently on metoprolol but dose decreased due to bradycardia. Cardiology consulted and appreciate their input. Unable to get Apnealink due to patient agitation okay to stop tele (7) Lactic acidosis: Code(s): E87.20 - Acidosis, unspecified Status: Acute Assessment and Plan: Lactic acid level was elevated. Related to sepsis and metabolic acidosis. Lactic acidosis resolved (8) Cirrhosis: Code(s): K74.60 - Unspecified cirrhosis of liver Status: Acute Assessment and Plan: Cirrhosis noted by US but not seen by CT. No ascites. Probably related to fatty liver. PT/PTT normal. Hepatitis panel negative. LFTs elevated as above. Workup in progress. Appreciate GI input. (9) Hypokalemia: Code(s): E87.6 - Hypokalemia Status: Acute Assessment and Plan: Potassium 2.8. Mag level okay. Unclear why this has dropped. IV potassium ordered. Repeat potassium level later today. Plan Debility: PT/OT DVT prophylaxis with Lovenox Code status full code Subjective Date/time seen: 10/20/22 11:25 Interval history: 57yo healthy female here for altered mental status. More interactive today. No abd pain. No n/v. No CP or SOB. Not been out of bed. Exam Narrative: AF 120/68 85 1
[2022-10-20 11:40] LABS: Glucose Point of Care 177 mg/dl (65-105)
[2022-10-20 11:44] LABS: Lipase 65 U/L (23-300)
[2022-10-20 17:44] LABS: Glucose Point of Care 122 mg/dl (65-105)
[2022-10-20 22:08] LABS: Glucose Point of Care 104 mg/dl (65-105)
[2022-10-21 04:22] VITALS: BP 110/63; PULSE 72; RESP 20; TEMP 36.7; O2SAT 93
[2022-10-21] MEDS: metroNIDAZOLE 500 MG/ISO 100ML 500 MG/100 ML BAG 100 MG IVPB ×2 (05:12→13:39)
[2022-10-21 05:36] LABS: Basophils Absolute Auto 0.1 K/mm3 (0.0-0.1); Basophils Percent Auto 0.6 % (0.2-1.2); Eosinophils Absolute Auto 0.2 K/mm3 (0-0.3); Eosinophils Percent Auto 0.9 % (0-4.4); Hematocrit 40.3 % (37.0-47.0); Hemoglobin 12.6 g/dL (12.0-15.0); Immature Granulocyte Percent A 1.1 % (0-0.5); Lymphocytes Absolute Auto 1.82 K/mm3 (0.9-3.2); Lymphocytes Percent Auto 10.1 % (18.3-44.2); Mean Corpuscular HGB Conc 31.3 g/dl (32-36); Mean Corpuscular Hemoglobin 29.4 pg (26-34); Mean Corpuscular Volume 93.9 fl (80-100); Mean Platelet Volume 9.9 fl (7.4-10.4); Monocytes Absolute Auto 0.7 K/mm3 (0.1-0.6); Monocytes Percent Auto 3.6 % (2.6-8.5); Neutrophils Percent Auto 83.7 % (45.5-73.1); Nucleated Red Blood Cells Perc 0.1 % (0.0-0.2); Platelet Count Result 304 k/mm3 (150-375); Red Blood Count 4.29 M/mm3 (4.2-5.4); Red Cell Distribution Width 15.2 % (11.5-14.5)
[2022-10-21 05:47] LABS: Alanine Aminotransferase 38 U/L (6-35); Albumin Level 2.7 g/dL (3.5-5.1); Alkaline Phosphatase 116 U/L (38-126); Anion Gap 5 mmol/L (8-16); Aspartate Amino Transferase 29 U/L (14-36); Bilirubin,Total 0.6 mg/dL (0.2-1.3); Blood Urea Nitrogen 4 mg/dL (7-17); Calcium 7.2 mg/dL (8.4-10.2); Carbon Dioxide 30 mmol/L (22-30); Chloride 106 mmol/L (98-107); Estimated CRCL calculation 152 ml/min; Estimated Glomerular Filt Rate > 60; Glucose 95 mg/dL (65-110); Lipase 47 U/L (23-300); Potassium 3.1 mmol/L (3.4-5.0); Sodium 141 mmol/L (137-145)
[2022-10-21 07:45] VITALS: BP 158/80; PULSE 73; O2SAT 93
[2022-10-21] MEDS: PANTOPRAZOLE SODIUM IV 40 MG VIAL IV PUSH (08:01)
[2022-10-21] MEDS: cefTRIAXone 2 GM in SODIUM CHLORIDE 0.9% IV 100 ML 200 ML IVPB (08:01)
[2022-10-21] MEDS: ACIDOPHILUS/BULGARICUS CHEWABLE TABLET 2 TABLET BY MOUTH (08:01)
[2022-10-21] MEDS: LIDOCAINE 5% PATCH 1 PATCH TRANSDERM (08:01)
[2022-10-21] MEDS: ENOXAPARIN 40 MG/0.4 ML SYRINGE SUB-Q (08:01)
[2022-10-21 08:02] VITALS: PULSE 73
[2022-10-21] MEDS: TOLNAFTATE 1% POWDER 45 GM BTL 1 APPLIC TOPICAL (08:02)
[2022-10-21] MEDS: POTASSIUM CHLORIDE 20 MEQ TABLET 40 MEQ PO (08:02)
[2022-10-21] MEDS: FAMOTIDINE 20 MG TABLET PO (08:02)
[2022-10-21] MEDS: METOPROLOL TARTRATE 6.25 MG TABLET PO (08:02)
[2022-10-21] MEDS: CHOLECALCIFEROL 1,000 UNITS TABLET 2000 UNITS PO (08:02)
[2022-10-21] MEDS: DICLOFENAC SODIUM 1% 100 GM GEL (*BKC) 1 APPLIC TOPICAL (08:02)
[2022-10-21] MEDS: VITAMIN B COMPLEX CAPSULE 1 CAP PO (08:02)
[2022-10-21] MEDS: THERAPEUTIC MULTIVITAMINS/MINERALS TAB (*BKC) 1 TABLET PO (08:02)
[2022-10-21 08:52] LABS: Glucose Point of Care 96 mg/dl (65-105)
[2022-10-21] MEDS: ONDANSETRON INJ 4 MG/2 ML VIAL IV PUSH (09:46)
[2022-10-21 12:05] LABS: Glucose Point of Care 99 mg/dl (65-105)
[2022-10-21 12:13] LABS: Mitochondrial (M2) Ab (IgG) <=20.0 U (<=20.0)
--- NOTE | 2022-10-21 13:25 | PM.PNGS ---
Progress Note: A&P Assessment and Plan (1) Choledocholithiasis: Code(s): K80.50 - Calculus of bile duct without cholangitis or cholecystitis without obstruction Status: Acute Assessment and Plan: more pain today, LFTs, lipase normalized, WBC still elevated, will get RUQ U/S to further eval GB Subjective Subjective Date/Time Seen: 10/21/22 13:25 somewhat lethargic (? baseline), states she is having diffuse abdominal pain but is eating ok and having normal bowel fxn Review of Systems Review of Systems: All systems reviewed & are unremarkable except as noted in HPI and below Exam Const: General: no acute distress, ill appearing, lethargic and obese Resp: Auscultation: clear to auscultation bilaterally Cardio: Rate: regular rate Rhythm: regular rhythm Objective Data Vital Signs Vital Signs: Vital Signs - 24 hr 10/20/22 18:59 10/20/22 21:21 10/20/22 21:26 Temperature 37.1 C Pulse Rate 78 78 75 Respiratory Rate 14 20 Blood Pressure 106/43 L 106/48 L Pulse Oximetry 94 92 Oxygen Delivery 10/21/22 04:22 10/21/22 08:02 10/21/22 07:45 Temperature 36.7 C Pulse Rate 72 73 73 Respiratory Rate 20 Blood Pressure 110/63 Pulse Oximetry 93 93 Oxygen Delivery Room Air 10/21/22 07:45 Temperature Pulse Rate Respiratory Rate Blood Pressure 158/80 H Pulse Oximetry Oxygen Delivery Intake/Output Intake/Output: Intake & Output 10/18/22 10/19/22 10/20/22 10/21/22 23:59 23:59 23:59 23:59 Intake Total 219 299 0959 590 Output Total 650 Balance 135 737 3180 -60 Meds/Results Medications: Active Medications Generic Name Dose Route Start Last Admin Trade Name Freq PRN Reason Stop Dose Admin Acetaminophen 650 mg 10/16/22 18:57 Acetaminophen 325 Mg Tablet PO Q6H PRN Pain Rated 5 or Less Dextrose 12.5 gm 10/12/22 11:20 Dextrose 50% 25 Gm/50 Ml Syringe IV PUSH PRN PRN Hypoglycemia Protocol Diclofenac Sodium 1 applic 10/12/22 09:00 10/21/22 08:02 Diclofenac Sodium 1% 100 Gm Gel (*Bkc) TOPICAL 1 applic Q12HR GABBY Administration Enoxaparin Sodium 40 mg 10/12/22 09:00 10/21/22 08:01 Enoxaparin 40 Mg/0.4 Ml Syringe SUB-Q 40 mg DAILY GABBY Administration Famotidine 20 mg 10/12/22 09:00 10/21/22 08:02 Famotidine 20 Mg Tablet PO 20 mg DAILY GABBY Administration Gemfibrozil 600 mg 10/12/22 07:30 10/16/22 14:08 Gemfibrozil 600 Mg Tablet PO 600 mg 0730,1630 GABBY Administration Glucagon 1 mg 10/12/22 11:20 Glucagon For Inj 1 Mg Vial IM PRN PRN Hypoglycemia Protocol Glucose 15 gm 10/12/22 11:20 Glucose Oral Gel 15 Gm Of Glucse In 37.5 Gm Tube PO PRN PRN Hypoglycemia Protocol Dextrose 1,000 mls @ 100 mls/hr 10/12/22 11:20 Dextrose 5% 1,000 Ml IVPB PRN PRN Hypoglycemia Protocol Ceftriaxone Sodium 2 gm/ 100 mls @ 200 mls/hr 10/15/22 09:00 10/21/22 08:30 Sodium Chloride IVPB Infused DAILY GABBY Infusion Metronidazole 500 mg in 100 mls @ 100 mls/hr 10/14/22 22:00 10/21/22 07:00 Flagyl 500 Mg/Iso Soln 100 Ml IVPB Infused Q8HR GABBY Infusion Insulin Aspart 2 - 5 units 10/12/22 12:00 10/21/22 12:14 Insulin Aspart (*Bkc) 100 Units/Ml SUB-Q Not Given [facility] Protocol Lactobacillus Acidophilus 2 tablet 10/12/22 09:00 10/21/22 08:01 Acidophilus/Bulgaricus Chewable Tablet BY MOUTH 2 tablet DAILY GABBY Administration Lidocaine 1 patch 10/12/22 09:00 10/21/22 08:01 Lidocaine 5% Patch TRANSDERM 1 patch DAILY GABBY Administration Metoprolol Tartrate 6.25 mg 10/18/22 10:00 10/21/22 08:02 Metoprolol Tartrate 6.25 Mg Tablet PO 6.25 mg Q12HR GABBY Administration Multivitamins/Calcium 1 tablet 10/12/22 09:00 10/21/22 08:02 Therapeutic Multivitamins/Minerals Tab (*Bkc) PO 1 tablet DAILY GABBY Administration Ondansetron HCl 4 mg 10/11/22 23:36 10/21/22 09:46 Ondansetron I
[2022-10-21 13:44] VITALS: BMI 45.1
[2022-10-21 14:00] VITALS: BP 135/58; PULSE 75; RESP 16; TEMP 37; O2SAT 92
--- NOTE | 2022-10-21 14:46 | WPDGIPROGNO ---
Progress Note: A&P Assessment and Plan (1) Gram-negative bacteremia: Code(s): R78.81 - Bacteremia Status: Acute Assessment and Plan: this has been treated with abx still with leukocytosis surgery will repeat new ultrasound (2) Ascending cholangitis: Code(s): K83.09 - Other cholangitis Status: Acute Assessment and Plan: ercp last week with successful removal of stone, patient developed post ercp pancreatitis but lipase and lft's normalized (3) Choledocholithiasis: Code(s): K80.50 - Calculus of bile duct without cholangitis or cholecystitis without obstruction Status: Acute Assessment and Plan: treated with ercp (4) Transaminitis: Code(s): R74.01 - Elevation of levels of liver transaminase levels Status: Acute Assessment and Plan: improved (5) Post-ERCP acute pancreatitis: Code(s): K91.89 - Other postprocedural complications and disorders of digestive system; K85.90 - Acute pancreatitis without necrosis or infection, unspecified Status: Acute (6) Acute encephalopathy: Code(s): G93.40 - Encephalopathy, unspecified Status: Acute (7) Cirrhosis: Code(s): K74.60 - Unspecified cirrhosis of liver Status: Acute Subjective Date/time seen: 10/21/22 14:46 Interval history: no major changes, she is resting Review of Systems Review of Systems: All systems reviewed & are unremarkable except as noted in HPI and below Exam Const: General: no acute distress, ill appearing, lethargic and obese HENMT: Face/Nose/Sinus: Normal nares present Eyes: General: appearance normal, both eyes and all related structures Neck: Neck: supple Resp: Auscultation: clear to auscultation bilaterally Cardio: Rate: regular rate Rhythm: regular rhythm GI: GI Palp: Yes Soft to palpation and No Guarding due to palpation present (GI) Auscultation: normal bowel sounds Skin: General skin exam: normal color Neuro: Speech: normal speech Other: sleepy but arousable, she is talking Extrem: General: normal to inspection Objective Data Vital Signs Vital Signs: Vital Signs - 24 hr 10/20/22 18:59 10/20/22 21:21 10/20/22 21:26 Temperature 98.8 F Pulse Rate 78 78 75 Respiratory Rate 14 20 Blood Pressure 106/43 L 106/48 L Pulse Oximetry 94 92 Oxygen Delivery 10/21/22 04:22 10/21/22 08:02 10/21/22 07:45 Temperature 98.1 F Pulse Rate 72 73 73 Respiratory Rate 20 Blood Pressure 110/63 Pulse Oximetry 93 93 Oxygen Delivery Room Air 10/21/22 07:45 10/21/22 14:00 Temperature 98.6 F Pulse Rate 75 Respiratory Rate 16 Blood Pressure 158/80 H 135/58 L Pulse Oximetry 92 Oxygen Delivery Intake/Output Intake/Output: Intake & Output 10/18/22 10/19/22 10/20/22 10/21/22 23:59 23:59 23:59 23:59 Intake Total 096 947 6514 830 Output Total 650 Balance 107 386 7277 180 Meds/Results Medications: Active Medications Generic Name Dose Route Start Last Admin Trade Name Freq PRN Reason Stop Dose Admin Acetaminophen 650 mg 10/16/22 18:57 Acetaminophen 325 Mg Tablet PO Q6H PRN Pain Rated 5 or Less Dextrose 12.5 gm 10/12/22 11:20 Dextrose 50% 25 Gm/50 Ml Syringe IV PUSH PRN PRN Hypoglycemia Protocol Diclofenac Sodium 1 applic 10/12/22 09:00 10/21/22 08:02 Diclofenac Sodium 1% 100 Gm Gel (*Bkc) TOPICAL 1 applic Q12HR GABBY Administration Enoxaparin Sodium 40 mg 10/12/22 09:00 10/21/22 08:01 Enoxaparin 40 Mg/0.4 Ml Syringe SUB-Q 40 mg DAILY GABBY Administration Famotidine 20 mg 10/12/22 09:00 10/21/22 08:02 Famotidine 20 Mg Tablet PO 20 mg DAILY GABBY Administration Gemfibrozil 600 mg 10/12/22 07:30 10/16/22 14:08 Gemfibrozil 600 Mg Tablet PO 600 mg 0730,1630 GABBY Administration Glucagon 1 mg 10/12/22 11:20 Glucagon For Inj 1 Mg Vial IM PRN PRN Hypoglycemia Protocol Glucose 15 gm
[2022-10-21 15:13] LABS: EDCOVIDSCREEN Negative (Negative)
--- NOTE | 2022-10-21 15:41 | PM.DS ---
DS: Admitting Diagnosis Discharge Date 10/21/22 Admitting Diagnosis Altered mental status DS: Discharge Diagnosis Discharge Diagnosis (1) Sepsis: Code(s): A41.9 - Sepsis, unspecified organism Status: Acute (2) Pancreatitis: Code(s): K85.90 - Acute pancreatitis without necrosis or infection, unspecified Status: Acute (3) Urinary tract infection: Code(s): N39.0 - Urinary tract infection, site not specified Status: Acute (4) Choledocholithiasis: Code(s): K80.50 - Calculus of bile duct without cholangitis or cholecystitis without obstruction Status: Acute (5) Elevated LFTs: Code(s): R79.89 - Other specified abnormal findings of blood chemistry Status: Acute (6) Lung infiltrate: Code(s): R91.8 - Other nonspecific abnormal finding of lung field Status: Acute (7) SVT (supraventricular tachycardia): Code(s): I47.1 - Supraventricular tachycardia Status: Acute (8) Lactic acidosis: Code(s): E87.20 - Acidosis, unspecified Status: Acute (9) Cirrhosis: Code(s): K74.60 - Unspecified cirrhosis of liver Status: Acute (10) Hypokalemia: Code(s): E87.6 - Hypokalemia Status: Acute (11) Acute encephalopathy: Code(s): G93.40 - Encephalopathy, unspecified Status: Acute DS: Summary Hospital Course Reason for hospitalization: 57yo healthy female here for altered mental status. Please see H&P for details Hospital Course: Patient with altered mental status on admission and found to have sepsis. She was started on broad-spectrum antibiotics with Flagyl, vancomycin and aztreonam.?BCx positive for klebsiella sensitive to Levaquin. Vanc/aztreonam stopped and started Levaquin (10/14) but then changed to Rocephin. Repeat BCx negative. Source initially felt to be intra-abdominal with probably ascending cholangitis from choledocholithiasis but UCx returned also growing Klebsiella with similar resistance pattern to suggest UTI causing sepsis. Sepsis symptoms resolved. Leukocytosis resolved initially but higher due to pancreatitis. Patient with abdominal pain, increase in LFTs and sepsis. Hepatitis panel negative. RUQ US showing cholelithiasis, cirrhosis and a dilated common bile duct up to 7.8 mm. Suspect retained CBD stone and MRCP showed 2 mm stone in the CBD, cholelithiasis. ERCP on 10/16 with removal of 4mm dark stone and sludge. Also showing porcelain GB. Gen surgery following. WBC slightly higher today and US considered but on re-evaluation, surgery felt the patient was okay for discharge and will continue watchful waiting. After the ERCP, Lipase 14K consistent post-ERCP pancreatitis. Abd pain better. Lipase down to normal. She is tolerating low fat diet. CT chest showing LLL airspace opacities concerning for PNA. She was treated with a course of abx. Patient presents with tachycardia felt to be SVT in the 200s likely triggered by sepsis and metabolic acidosis. She underwent synchronized cardioversion in the ER. Echo showed an EF of 60-65% with grade 1 diastolic dysfunction but no significant valvular disease and no pHTN. Cardiology consulted. Metoprolol started but dose decreased due to bradycardia. Tele was showing occasional bradycardia but no recurrence of SVT. Unable to get Apnealink due to patient agitation. Cirrhosis noted by US but not seen by CT. No ascites. Probably related to fatty liver. PT/PTT normal. Hepatitis panel negative. LFTs elevated as above. Workup in progress. Appreciate GI input. She overall did well and was able to be discharged on 10/21/22 Status at Discharge Cognitive/behavioral status at discharge: Stable Time Spent with Patient Time attestation: Total time spent providing and/or coordinating discharge services: 34 minutes Time spent: Greater than 30 minutes Exam Narrative: AF 135/58 75 16 92% ra Gen - NARD lying flat in bed Chest -CTA bilaterally. nml RR CV - RRR S1/S2 Ab
[2022-10-21 17:30] LABS: Glucose Point of Care 95 mg/dl (65-105)
--- NOTE | 2022-10-21 17:31 | PC.NURSE ---
Attempted to call report to [facility]. There was no answer. The line was busy and unable to leave message.
--- NOTE | 2022-10-21 17:32 | PC.NURSE ---
Attempted to call report to [facility]. There was no answer. The line was busy and unable to leave message.
--- NOTE | 2022-10-21 17:33 | PC.NURSE ---
Attempted to call report to [facility]. There was no answer. The line was busy and unable to leave message.
--- NOTE | 2022-10-21 18:04 | PC.NURSE ---
Attempted to call report to [facility]. There was no answer. The line was busy and unable to leave message.
--- NOTE | 2022-10-21 18:32 | PC.NURSE ---
Report called to JASON Sutherland at [facility]. Waiting on ambulance transfer.
[2022-10-22 19:55] LABS: Ceruloplasmin 32 mg/dL (18-53)
--- NOTE | 2022-10-25 10:32 | PC.NURSE ---
Ceruloplasmin is WNL at 32. Dr. Alexander kramer.
--- NOTE | 2022-11-04 09:21 | PC.NURSE ---
Faxed A1AT results faxed to Dr. Chapa. Dr. Munoz aware of findings.
== END 2022-10-21 20:50 | DRG 720 ==
LOC: ANHED 21:28 → ANHICU 10-12 00:51 → ANHIMU 10-12 18:38 → ANH2MED 10-18 17:16
PROVIDERS: Internal Medicine; Internal Medicine Gastroenterology; Nurse Practitioner; Student in an Organized Health Care Education/Training Program; Admitting Provider Internal Medicine; Emergency Provider Emergency Medicine; PCP Internal Medicine; Visit Provider Internal Medicine
PROC: 0FC98ZZ Extirpation of Matter from Common Bile Duct, Via Natural or Artificial Opening Endoscopic (ICD-10-PCS; CPT 43260; principal; 2022-10-16 11:30)
DX: A41.89 Other specified sepsis (principal); G93.40 Encephalopathy, unspecified; K85.80 Other acute pancreatitis without necrosis or infection; E87.21 Acute metabolic acidosis; K74.60 Unspecified cirrhosis of liver; J18.9 Pneumonia, unspecified organism; I47.1 Supraventricular tachycardia; K91.89 Other postprocedural complications and disorders of digestive system; E66.01 Morbid (severe) obesity due to excess calories; K80.30 Calculus of bile duct with cholangitis, unspecified, without obstruction; K80.70 Calculus of gallbladder and bile duct without cholecystitis without obstruction; B96.1 Klebsiella pneumoniae [K. pneumoniae] as the cause of diseases classified elsewhere; D72.829 Elevated white blood cell count, unspecified; Z20.822 Contact with and (suspected) exposure to COVID-19; N39.0 Urinary tract infection, site not specified; R91.8 Other nonspecific abnormal finding of lung field; E87.6 Hypokalemia; K76.0 Fatty (change of) liver, not elsewhere classified; I48.91 Unspecified atrial fibrillation; Z68.42 Body mass index [BMI] 45.0-49.9, adult
CPT/HCPCS: 36415; 36600; 51701; 70450; 71275; 74177; 74183; 74329; 76376; 76705; 80053; 80074; 80202; 81001; 82104; 82375; 82390; 82728; 82805; 82948; 83036; 83050; 83520; 83540; 83550; 83605; 83690; 83735; 83880; 84100; 84132; 84145; 84484; 85025; 85610; 85730; 86038; 87040; 87077; 87086; 87088; 87186; 87426; 92960; 93005; 93306; 96365; 96366; 96367; 96372; 96375; 97161; 97165; 97530; 97535; 99291; A9270; A9577; C9113; C9803; G0378; G0379; J0330; J0696; J1100; J1650; J1956; J2270; J2405; J2704; J3370; J3480; J7030; J7040; J7120; Q9967

== ENCOUNTER 2022-12-10 10:28 | Outpatient (CLI) | payer OTHER, SELFPAY ==
[2022-12-10 11:09] LABS: Basophils Percent Auto 0.5 % (0.2-1.2); Eosinophils Absolute Auto 0.2 K/mm3 (0-0.3); Eosinophils Percent Auto 2.7 % (0-4.4); Hematocrit 47.5 % (37.0-47.0); Hemoglobin 14.4 g/dL (12.0-15.0); Immature Granulocyte Absolute 0.02 K/mm3 (0.00-0.031); Immature Granulocyte Percent A 0.3 % (0-0.5); Lymphocytes Absolute Auto 2.38 K/mm3 (0.9-3.2); Lymphocytes Percent Auto 39.7 % (18.3-44.2); Mean Corpuscular HGB Conc 30.3 g/dl (32-36); Mean Corpuscular Hemoglobin 28.3 pg (26-34); Mean Corpuscular Volume 93.5 fl (80-100); Mean Platelet Volume 10.7 fl (7.4-10.4); Monocytes Absolute Auto 0.4 K/mm3 (0.1-0.6); Monocytes Percent Auto 6.2 % (2.6-8.5); Neutrophils Percent Auto 50.6 % (45.5-73.1); Platelet Count Result 247 k/mm3 (150-375); Red Blood Count 5.08 M/mm3 (4.2-5.4); Red Cell Distribution Width 14.6 % (11.5-14.5)
[2022-12-10 11:16] LABS: INR 1.1; Prothrombin Time 13.8 Seconds (11.1-14.7)
[2022-12-10 11:30] LABS: Iron 131 ug/dL (37-170)
[2022-12-10 11:50] LABS: Percent Iron Saturation 25 % (20-50)
[2022-12-10 14:09] LABS: Anion Gap 12 mmol/L (8-16); Blood Urea Nitrogen 15 mg/dL (7-17); Calcium 9.9 mg/dL (8.4-10.2); Carbon Dioxide 28 mmol/L (22-30); Chloride 104 mmol/L (98-107); Estimated Glomerular Filt Rate > 60; Glucose 93 mg/dL (65-110); Potassium 3.9 mmol/L (3.4-5.0); Sodium 144 mmol/L (137-145)
[2022-12-10 14:31] LABS: Albumin Level 4.7 g/dL (3.5-5.1); Bilirubin,Total 0.8 mg/dL (0.2-1.3)
[2022-12-10 14:49] LABS: Alanine Aminotransferase 36 U/L (6-35); Alkaline Phosphatase 105 U/L (38-126); Aspartate Amino Transferase 47 U/L (14-36)
[2022-12-12 20:32] LABS: Actin Antibody (IgG) <20 U (<20)
[2022-12-13 10:43] LABS: Ceruloplasmin 30 mg/dL (18-53)
[2022-12-15 18:45] LABS: GGT 16 U/L (3-70)
[2022-12-16 23:12] LABS: ALT 25 U/L (6-29); Alpha-2-Macroglobulin 139 mg/dL (106-279); Apolipoprotein A1 120 mg/dL (101-198); Fibrosis Score 0.06; Fibrosis Stage F0; GGT 13 U/L (3-70); Haptoglobin 185 mg/dL (43-212); Necroinflammat Act Grade A0; Total Bilirubin 0.3 mg/dL (0.2-1.2)
== END 2022-12-10 10:29 | disposition home or self-care (01) ==
PROVIDERS: Internal Medicine; PCP Internal Medicine; Visit Provider Nurse Practitioner Family
DX: K74.60 Unspecified cirrhosis of liver (principal); A41.9 Sepsis, unspecified organism
CPT/HCPCS: 36415; 80053; 81596; 82390; 82728; 82977; 83540; 83550; 85025; 85610; 86364